=== PATIENT | male | born 1965 | race Caucasian/White ===

== ENCOUNTER 2017-06-30 09:27 | Day surgery (SDC) | payer OTHER ==
[2017-06-24 12:16] VITALS: BMI 47.0
[~2017-06-30 09:27] MED LIST: LACTATED RINGERS 1,000 ML IV SCH
[2017-06-30 09:48] VITALS: RESP 18; TEMP 98.3
[2017-06-30] MEDS ORDERED: LIDOCAINE 1% 20 ML VIAL (10MG/ML) FOR IV START INTRADERMA ONE (10:00)
[2017-06-30 10:03] LABS: Glucose,Whole Blood 148 mg/dL (75-99)
[2017-06-30] MEDS ORDERED: LIDOCAINE 1% INJ 10MG/ML (20 ML MDV) ONE (10:04)
[2017-06-30] MEDS ORDERED: PROPOFOL 10 MG/ML 20 ML VIAL IV ONE (10:04)
--- NOTE | 2017-06-30 10:28 | P.PCN ---
Date of Procedure: 06/30/17 Procedure(s) Performed: BRIEF HISTORY: Patient is a 52-year-old pleasant white male, scheduled for an elective colonoscopy as a part of screening for colorectal neoplasia. PROCEDURE PERFORMED: Colonoscopy. PREOPERATIVE DIAGNOSIS: Screening for colon cancer. IV sedation per Anesthesia. PROCEDURE: After informed consent was obtained, the patient, was brought into the endoscopy unit. IV sedation was administered by Anesthesia under continuous monitoring. Digital rectal examination was normal. Initially the Olympus CF- 160 flexible video colonoscope was then inserted in the rectum, gradually advanced into the cecum without any difficulty. Careful examination was performed as the scope was gradually being withdrawn. Ileocecal valve and the appendiceal orifice were visualized and appeared normal. Prep was excellent. Mucosa of the cecum, ascending colon, transverse colon, descending colon, sigmoid colon, and rectum appeared normal. Retroflexion was performed in the rectum and no lesions were seen. The patient tolerated the procedure well. IMPRESSION: Normal-appearing colon from rectum to cecum with no evidence of colorectal neoplasia. RECOMMENDATIONS: Findings of this examination were discussed with the patient as well as his family. He was advised to have a repeat screening colonoscopy in 10 years.
[2017-06-30] MEDS ORDERED: IV FLUID CONTINUATION 1,000 ML IV ONE (10:29)
[2017-06-30 10:45] VITALS: BP 124/68; PULSE 82
== END 2017-06-30 11:25 | disposition home or self-care (01) ==
LOC: ORWHC2ENDO 09:27
PROVIDERS: ATTEND Internal Medicine Gastroenterology
DX: Z12.11 Encounter for screening for malignant neoplasm of colon (principal); I10 Essential (primary) hypertension; E78.5 Hyperlipidemia, unspecified; J45.909 Unspecified asthma, uncomplicated; Z79.84 Long term (current) use of oral hypoglycemic drugs; Z79.82 Long term (current) use of aspirin; Z79.899 Other long term (current) drug therapy
CPT/HCPCS: J2001; J2704; G0121

== ENCOUNTER → 2020-08-05 | Outpatient (CLI) | payer OTHER ==
--- NOTE | 2020-08-05 20:55 | CT ---
EXAMINATION TYPE: CT lumbar spine wo con DATE OF EXAM: 08/05/2020 6:29 PM COMPARISON: None available. HISTORY: chronic low back pain CT DLP: 2507.9 mGycm Automated exposure control for dose reduction was used. Unenhanced CT of the lumbar spine was performed. Bone and soft tissue window settings are submitted as well as coronal and sagittal reconstructions. FINDINGS: There is no acute fracture or subluxation. There is lumbosacral transitional anatomy with partial fus ion L5-S1 on the left. The vertebral D heights are grossly maintained. There is multilevel mild to mo derate disc height narrowing and facet arthropathy. No significant paraspinal soft tissue abnormality . IMPRESSION: Mild to moderate lumbar spondylosis without acute abnormality. Lumbosacral transitional anatomy.
== END | disposition home or self-care (01) ==
LOC: RADCTMAIN 18:11
PROVIDERS: ATTEND Family Medicine
DX: M47.26 Other spondylosis with radiculopathy, lumbar region (principal)
CPT/HCPCS: 72131

== ENCOUNTER → 2021-04-30 | Outpatient (CLI) | payer OTHER ==
--- NOTE | 2021-05-01 07:09 | US ---
EXAMINATION TYPE: US extremity nonvasculr ltd LT DATE OF EXAM: 04/30/2021 COMPARISON: NONE CLINICAL HISTORY: Swelling left calf R22.42. Pt states left calf edema Soft tissue edema visualized throughout left medial and posterior calf IMPRESSION: Diffuse soft tissue edema or cellulitis. Correlate clinically.
== END | disposition home or self-care (01) ==
LOC: RADUSWWP 15:50
PROVIDERS: ATTEND Family Medicine
DX: R22.42 Localized swelling, mass and lump, left lower limb (principal)

== ENCOUNTER 2022-03-24 18:05 | Observation (INO) | payer BC ==
[2022-03-24 21:28] LABS: ALT 31 U/L (4-49); African American GFR (CKD) >90 (>60 ml/min/1.73 sqM); Albumin 4.1 g/dL (3.5-5.0); Anion Gap 14 mmol/L; Blood Urea Nitrogen 8 mg/dL (9-20); Calcium 9.3 mg/dL (8.4-10.2); Carbon Dioxide 22 mmol/L (22-30); Chloride 99 mmol/L (98-107); Glucose 111 mg/dL (74-99); Non-African American GFR(CKD) >90 (>60 ml/min/1.73 sqM); Sodium 135 mmol/L (137-145); Total Bilirubin 0.7 mg/dL (0.2-1.3); Total Protein 6.5 g/dL (6.3-8.2)
[2022-03-24 21:41] LABS: AST 33 U/L (17-59); Alkaline Phosphatase 40 U/L (38-126); Potassium 4.9 mmol/L (3.5-5.1)
[2022-03-24 23:48] LABS: Basophils % (A) 0 %; Eosinophils # (A) 0.2 k/uL (0-0.7); Eosinophils % (A) 3 %; HCT 37.2 % (39.0-53.0); Lymphocytes # (A) 2.1 k/uL (1.0-4.8); Lymphocytes % (A) 26 %; MCH 30.5 pg (25.0-35.0); MCHC 34.9 g/dL (31.0-37.0); MCV 87.3 fL (80.0-100.0); Mean Platelet Volume 6.8; Monocytes # (A) 0.5 k/uL (0-1.0); Monocytes % (A) 6 %; Neutrophils # (A) 5.2 k/uL (1.3-7.7); Neutrophils % (A) 64 %; Platelet Count 251 k/uL (150-450); RBC 4.26 m/uL (4.30-5.90); RDW 13.9 % (11.5-15.5); WBC 8.2 k/uL (3.8-10.6)
[2022-03-25] MEDS ORDERED: NALOXONE 0.4 MG/ML 1 ML VIAL IV PRN (00:11)
--- NOTE | 2022-03-25 00:11 | ED ---
GI Bleed HPI - General Chief complaint: GI Bleed Stated complaint: Rectal Bleed, Sent by Dr Villarreal Seen by Provider: 03/24/22 21:25 Source: patient Mode of arrival: ambulatory Limitations: no limitations - History of Present Illness Initial comments: 56-year-old male presents to emergency department with rectal bleeding. States that for the past 10 days he has had bright red blood per rectum. He will have 1 bowel movement per day and every bowel movement has had blood in it. He denies history of peptic ulcer disease. No NSAID or alcohol use. Did have a colonoscopy 8-10 years ago which was normal. He denies constipation. Does admit to diarrhea. No abdominal or rectal pain. He went into [facility] 2 days ago and had a CT performed. Was reported as negative. He was told to follow-up for further treatment. Dr. Rangel found in office today and was concerned with his persistent bleeding and recommended that he go into the hospital for surgery evaluation. No other alleviating, precipitating or modifying factors - Related Data Home Medications Medication Instructions Recorded Confirmed Albuterol Inhaler [Ventolin 1 puff INHALATION RT-Q4H PRN 02/04/15 03/24/22 Inhaler] Aspirin 81 mg PO DAILY 02/04/15 03/24/22 Amoxic-Pot Clav 875-125Mg 1 tab PO BID 03/24/22 03/24/22 [Augmentin 875-125] Atorvastatin [Lipitor] 40 mg PO HS 03/24/22 03/24/22 Dulaglutide [Trulicity] 3 mg SQ OLIVAREZ 03/24/22 03/24/22 Furosemide [Lasix] 20 mg PO BID 03/24/22 03/24/22 Insulin Glargine,Hum.rec.anlog 20 unit SQ DAILY 03/24/22 03/24/22 [Basaglar Kwikpen U-100] Magnesium Oxide 400 mg PO DAILY 03/24/22 03/24/22 Vitamin B Complex 1 cap PO DAILY 03/24/22 03/24/22 levETIRAcetam 500 mg PO BID 03/24/22 03/24/22 lisinopriL [Zestril] 10 mg PO DAILY 03/24/22 03/24/22 metFORMIN HCL 1,000 mg PO BID 03/24/22 03/24/22 Allergies Allergy/AdvReac Type Severity Reaction Status Date / Time tree nut Allergy Anaphylaxis Verified 03/24/22 22:21 Review of Systems ROS Statement: Those systems with pertinent positive or pertinent negative responses have been documented in the HPI. ROS Other: All systems not noted in ROS Statement are negative. Past Medical History Past Medical History: Asthma, Diabetes Mellitus, Hyperlipidemia, Seizure Disorder Additional Past Medical History / Comment(s): LAST SEIZUERE "YEARS AGO"-NO LONG ER SEIZURE MEDS History of Any Multi-Drug Resistant Organisms: None Reported Past Surgical History: Orthopedic Surgery Additional Past Surgical History / Comment(s): RIGHT WRIST SURGERY, LEFT ARM & SHOULDER PRITCHARD/SKIN GRAFTING, RT LEG PRITCHARD/SKIN GRAFT, LT KNEE SCOPE, Past Anesthesia/Blood Transfusion Reactions: No Reported Reaction Past Psychological History: No Psychological Hx Reported Smoking Status: Never smoker Past Alcohol Use History: Rare Past Drug Use History: Marijuana - Past Family History Mother Family Medical History: No Reported History Father Family Medical History: CVA/TIA, Myocardial Infarction ([place]) Additional Family Medical History / Comment(s): Father is 82 yrs old. General Exam Limitations: no limitations General appearance: alert, in no apparent distress Head exam: Present: atraumatic, normocephalic, normal inspection Eye exam: Present: normal appearance, PERRL, EOMI. Absent: scleral icterus, conjunctival injection, periorbital swelling ENT exam: Present: normal exam, mucous membranes moist Neck exam: Present: normal inspection. Absent: tenderness, meningismus, lymphadenopathy Respiratory exam: Present: normal lung sounds bilaterally. Absent: respiratory distress, wheezes, rales, rhonchi, stridor Cardiovascular Exam: Present: regular rate, normal rhythm, normal heart sounds. Absent: systolic murmur, diastolic murmur, rubs, gallop, clicks GI/Abdominal exam: Present: soft, normal bowel sounds. Absent: distended, tenderness, guarding, rebound, rigid Rectal exam: Present: heme (+) stool, other (scant brown stool). Absent: black stool, bloody stool Extremities exam: Present: normal inspection, full ROM, normal capillary refill. Absent: tenderness, pedal edema, joint swelling, calf tenderness Back exam: Present: normal inspection Neurological exam: Present: alert, oriented X3, CN II-XII intact Psychiatric exam: Present: normal affect, normal mood Skin exam: Present: warm, dry, intact, normal color. Absent: rash Course Vital Signs 03/24/22 03/24/22 03/24/22 18:27 22:03 23:28 Temperature 98 F Pulse Rate 95 84 87 Respiratory 20 16 15 Rate Blood Pressure 118/76 117/64 113/71 O2 Sat by Pulse 98 94 L 98 Oximetry 03/25/22 03/25/22 03/25/22 04:00 06:00 07:19 Temperature 98.1 F Pulse Rate 82 78 84 Respiratory 16 16 16 Rate Blood Pressure 135/45 107/65 130/78 O2 Sat by Pulse 98 100 98 Oximetry 03/25/22 03/25/22 03/25/22 09:11 10:14 14:39 Temperature 98 F Pulse Rate 88 93 88 Respiratory 16 16 16 Rate Blood Pressure 134/79 131/71 121/68 O2 Sat by Pulse 98 98 100 Oximetry 03/25/22 03/25/22 15:00 16:09 Temperature Pulse Rate 90 89 Respiratory 16 16 Rate Blood Pressure 145/89 125/77 O2 Sat by Pulse 100 100 Oximetry Medical Decision Making - Medical Decision Making Upon arrival patient was placed into room 8. There are history and physical exam was performed. Rectal exam is performed which demonstrates a scant amount of brown stool. Occult is positive. Hemoglobin 13. He will be admitted to [facility] with surgery to consult - Lab Data Result diagrams: 03/26/22 06:10 03/26/22 06:10 Lab Results 03/24/22 03/24/22 03/24/22 Range/Units 19:17 19:17 20:45 WBC 8.2 (3.8-10.6) k/uL RBC 4.26 L (4.30-5.90) m/uL Hgb 13.0 (13.0-17.5) gm/dL Hct 37.2 L (39.0-53.0) % MCV 87.3 (80.0-100.0) fL MCH 30.5 (25.0-35.0) pg MCHC 34.9 (31.0-37.0) g/dL RDW 13.9 (11.5-15.5) % Plt Count 251 (150-450) k/uL MPV 6.8 Neutrophils % 64 % Lymphocytes % 26 % Monocytes % 6 % Eosinophils % 3 % Basophils % 0 % Neutrophils # 5.2 (1.3-7.7) k/uL Lymphocytes # 2.1 (1.0-4.8) k/uL Monocytes # 0.5 (0-1.0) k/uL Eosinophils # 0.2 (0-0.7) k/uL Basophils # 0.0 (0-0.2) k/uL APTT 23.1 (22.0-30.0) sec Sodium (137-145) mmol/L Potassium (3.5-5.1) mmol/L Chloride (98-107) mmol/L Carbon Dioxide (22-30) mmol/L Anion Gap mmol/L BUN (9-20) mg/dL Creatinine (0.66-1.25) mg/dL Est GFR (CKD-EPI)AfAm (>60 ml/min/1.73 sqM) Est GFR (CKD-EPI)NonAf (>60 ml/min/1.73 sqM) Glucose (74-99) mg/dL Estimated Ave Glu mg/dL 160 Hemoglobin A1c 7.2 H (0.0-6.0) % Calcium (8.4-10.2) mg/dL Total Bilirubin (0.2-1.3) mg/dL AST (17-59) U/L ALT (4-49) U/L Alkaline Phosphatase (38-126) U/L Troponin I (0.000-0.034) ng/mL Total Protein (6.3-8.2) g/dL Albumin (3.5-5.0) g/dL Stool Occult Blood (Negative) 03/24/22 03/24/22 03/24/22 Range/Units 20:45 21:43 21:44 WBC (3.8-10.6) k/uL RBC (4.30-5.90) m/uL Hgb (13.0-17.5) gm/dL Hct (39.0-53.0) % MCV (80.0-100.0) fL MCH (25.0-35.0) pg MCHC (31.0-37.0) g/dL RDW (11.5-15.5) % Plt Count (150-450) k/uL MPV Neutrophils % % Lymphocytes % % Monocytes % % Eosinophils % % Basophils % % Neutrophils # (1.3-7.7) k/uL Lymphocytes # (1.0-4.8) k/uL Monocytes # (0-1.0) k/uL Eosinophils # (0-0.7) k/uL Basophils # (0-0.2) k/uL APTT (22.0-30.0) sec Sodium 135 L (137-145) mmol/L Potassium 4.9 (3.5-5.1) mmol/L Chloride 99 (98-107) mmol/L Carbon Dioxide 22 (22-30) mmol/L Anion Gap 14 mmol/L BUN 8 L (9-20) mg/dL Creatinine 0.60 L (0.66-1.25) mg/dL Est GFR (CKD-EPI)AfAm >90 (>60 ml/min/1.73 sqM) Est GFR (CKD-EPI)NonAf >90 (>60 ml/min/1.73 sqM) Glucose 111 H (74-99) mg/dL Estimated Ave Glu mg/dL Hemoglobin A1c (0.0-6.0) % Calcium 9.3 (8.4-10.2) mg/dL Total Bilirubin 0.7 (0.2-1.3) mg/dL AST 33 (17-59) U/L ALT 31 (4-49) U/L Alkaline Phosphatase 40 (38-126) U/L Troponin I <0.012 (0.000-0.034) ng/mL Total Protein 6.5 (6.3-8.2) g/dL Albumin 4.1 (3.5-5.0) g/dL Stool Occult Blood Positive (Negative) Disposition Clinical Impression: Hematochezia Disposition: ADMITTED IP TO THIS [facility] Condition: Stable Is patient prescribed a controlled substance at d/c from ED?: No Time of Disposition: 00:11 Decision to Admit Reason: Admit from EC Decision Date: 03/25/22 Decision Time: 00:11
[2022-03-25] MEDS: SODIUM CHLORIDE 0.9% 1,000 ML IV SCH ×2 (06:48→16:21)
[2022-03-25] MEDS: PANTOPRAZOLE 40 MG/10 ML VIAL IV SCH (09:09)
[2022-03-25] MEDS ORDERED: DEXTROSE 50% SYRINGE 50 ML IVP PRN ×2 (09:31)
--- NOTE | 2022-03-25 09:33 | P.HPIM ---
History of Present Illness This is a pleasant 56 years old male with past medical history of hypertension, hyperlipidemia, diabetes mellitus, seizure disorder. His PCP is Dr. Rangel. Pt has been having rectal bleeding for over 10 days. He went to see his PCP Dr. Rangel who referred him to the emergency room. Patient states that his rectal bleeding is with no pain, associated with bowel movement, states about 1-1.5 ounces that's fills up The toilet paper. He had no bowel movement over the last 2 days but passing gases. He has no abdominal pain but mild epigastric discomfort on palpation. He recognizes this in the emergency room. No chest pain or dyspnea. No coughing. No urinary complaints like dysuria. No headache or weakness or numbness or dizziness. He denies smoking, alcohol or illicit drugs. Patient states that he was recently been diagnosed with pneumonia and should be on Augmentin for 1 more week. He states he was taking baby aspirin by his PCP Dr. Arriaga. His been evaluated about 1-1.5 year ago, his been evaluated by Dr. Barnard on that time to Vitals are stable, blood pressure 107/65 and heart rate 78. Labs reviewed showing normal hemoglobin at 13.0. The rest of the CBC is unremarkable. PTT is 23.1 BMP and liver enzymes are unremarkable Troponin is negative. Occult blood in the stool is positive. And emergency room was started on Protonix and normal saline at 75 mL/h Review of Systems Review of systems CONSTITUTIONAL: No fever, no malaise, no fatigue. HEENT: No recent visual problems or hearing problems. Denied any sore throat. CARDIOVASCULAR: No orthopnea, PND, no palpitations, no syncope. PULMONARY: No shortness of breath, no cough, no hemoptysis. GASTROINTESTINAL: No diarrhea, no nausea, no vomiting, no abdominal pain. Normoactive bowel sounds. NEUROLOGICAL: No headaches, no weakness, no numbness. HEMATOLOGICAL: Denies any bleeding or petechiae. GENITOURINARY: Denies any burning micturition, frequency, or urgency. MUSCULOSKELETAL/RHEUMATOLOGICAL: Denies any joint pain, swelling, or any muscle pain. ENDOCRINE: Denies any polyuria or polydipsia. Past Medical History Past Medical History: Asthma, Diabetes Mellitus, Hyperlipidemia, Seizure Disorder Additional Past Medical History / Comment(s): LAST SEIZUERE "YEARS AGO"-NO LONGER SEIZURE MEDS History of Any Multi-Drug Resistant Organisms: None Reported Past Surgical History: Orthopedic Surgery Additional Past Surgical History / Comment(s): RIGHT WRIST SURGERY, LEFT ARM & SHOULDER PRITCHARD/SKIN GRAFTING, RT LEG PRITCHARD/SKIN GRAFT, LT KNEE SCOPE, Past Anesthesia/Blood Transfusion Reactions: No Reported Reaction Past Psychological History: No Psychological Hx Reported Smoking Status: Never smoker Past Alcohol Use History: Rare Past Drug Use History: Marijuana - Past Family History Mother Family Medical History: No Reported History Medications and Allergies Home Medications Medication Instructions Recorded Confirmed Type Albuterol Inhaler [Ventolin 1 puff INHALATION RT-Q4H PRN 02/04/15 03/24/22 History Inhaler] Aspirin 81 mg PO DAILY 02/04/15 03/24/22 History Amoxic-Pot Clav 875-125Mg 1 tab PO BID 03/24/22 03/24/22 History [Augmentin 875-125] Atorvastatin [Lipitor] 40 mg PO HS 03/24/22 03/24/22 History Dulaglutide [Trulicity] 3 mg SQ OLIVAREZ 03/24/22 03/24/22 History Furosemide [Lasix] 20 mg PO BID 03/24/22 03/24/22 History Insulin Glargine,Hum.rec.anlog 20 unit SQ DAILY 03/24/22 03/24/22 History [Basaglar Kwikpen U-100] Magnesium Oxide 400 mg PO DAILY 03/24/22 03/24/22 History Vitamin B Complex 1 cap PO DAILY 03/24/22 03/24/22 History levETIRAcetam 500 mg PO BID 03/24/22 03/24/22 History lisinopriL [Zestril] 10 mg PO DAILY 03/24/22 03/24/22 History metFORMIN HCL 1,000 mg PO BID 03/24/22 03/24/22 History Allergies Allergy/AdvReac Type Severity Reaction Status Date / Time tree nut Allergy Anaphylaxis Verified 03/24/22 22:21 Physical Exam Vitals: Vital Signs Temp Pulse Resp BP Pulse Ox 03/25/22 06:00 78 16 107/65 100 03/25/22 04:00 82 16 135/45 98 03/24/22 23:28 87 15 113/71 98 03/24/22 22:03 84 16 117/64 94 L 03/24/22 18:27 98 F 95 20 118/76 98 Intake and Output 03/24/22 03/25/22 03/25/22 22:59 06:59 14:59 Other: Weight 142.882 kg GENERAL: The patient is alert and oriented x3, not in any acute distress. Well developed, well nourished. HEENT: Pupils are round and equally reacting to light. EOMI. No scleral icterus. No conjunctival pallor. Normocephalic, atraumatic. No pharyngeal erythema. No thyromegaly. CARDIOVASCULAR: S1 and S2 present. No murmurs, rubs, or gallops. PULMONARY: Chest is clear to auscultation, no wheezing or crackles. ABDOMEN: Soft, nontender, nondistended, normoactive bowel sounds. No palpable organomegaly. MUSCULOSKELETAL: No joint swelling or deformity. EXTREMITIES: No cyanosis, clubbing, or pedal edema. NEUROLOGICAL: Gross neurological examination did not reveal any focal deficits. SKIN: No rashes. no petechiae. Results CBC & Chem 7: 03/24/22 19:17 03/24/22 20:45 Labs: Abnormal Lab Results - Last 24 Hours (Table) 03/24/22 03/24/22 Range/Units 19:17 20:45 RBC 4.26 L (4.30-5.90) m/uL Hct 37.2 L (39.0-53.0) % Sodium 135 L (137-145) mmol/L BUN 8 L (9-20) mg/dL Creatinine 0.60 L (0.66-1.25) mg/dL Glucose 111 H (74-99) mg/dL Assessment and Plan Assessment: Acute GI bleed rectal bleeding over 10 days Hypertension Hyperlipidemia Diabetes mellitus History of seizure disorder Obesity with BMI of 45.2 Plan: This is a pleasant 56 years old male who presents with acute GI bleed Continue with IV Protonix hold aspirin Continue with normal saline Monitor hemoglobin and vitals Surgery team consult Hold metformin and to Lantus 20 units and trulicity and continue with insulin sliding scale Labs and medication were reviewed.. Continue same treatment. Continue with symptomatic treatment. Resume home medication. Monitor lytes and vitals. DVT and GI prophylaxis. Further recommendations as per clinical course of the patie nt DVT prophylaxis: no Subcutaneous heparin GI Prophylaxis: Ppi Prognosis is guarded
[2022-03-25] MEDS: levETIRAcetam 500 MG TAB PO SCH ×2 (10:12→21:22)
[2022-03-25] MEDS: AMOXIC-POT CLAV 875-125MG 1 EACH TAB PO SCH ×2 (10:12→21:22)
[2022-03-25] MEDS ORDERED: IOPAMIDOL CONTRAST (ORAL USE) VIAL PO PRN (10:32)
--- NOTE | 2022-03-25 12:39 | CT ---
EXAMINATION TYPE: CT abdomen pelvis w con DATE OF EXAM: 03/25/2022 COMPARISON: NONE HISTORY: 56-year-old male GIB, diarrhea. TECHNIQUE: Contiguous axial scanning of the abdomen and pelvis following administration of 100 ml Iso nicolette 300 IV contrast. Delayed images through the kidneys and coronal/sagittal reconstructions perform ed. CT DLP: 3635.4 mGycm Automated exposure control for dose reduction was used. FINDINGS: Heart normal size without pericardial effusion. Prominent epicardial fat pad. Bands of opac ity at the left base with elevated left hemidiaphragm suggests some scarring and volume loss. No pleu ral effusion. No focal liver lesion or biliary ductal dilatation. Portal venous system is patent. Gallbladder shows a junctional fold. No abnormal distention. Adrenal glands, kidneys, pancreas within normal limits. Spleen is mildly enlarged at 14.5 cm measured on coronal series. Small anterior splenule. No dilated small bowel, free fluid, or free air. No mesenteric or retroperitoneal lymphadenopathy. Normal appendix. Oral contrast progressed to the rectum. There is mild to moderate stool within the d istal sigmoid and rectum. No pericolonic inflammatory change. Bladder urine distended. Prostate gland is borderline in size at 4.2 cm. No abnormal fluid collection in the pelvis or pelvic lymphadenopathy. Bones: There is a rightward truncal shift noted. There is also left L5 hemisacralization with a degen erative assimilation joint. No osseous destructive process. IMPRESSION: 1. MILD TO MODERATE STOOL WITHIN THE DISTAL SIGMOID AND RECTUM. NO ACUTE INFLAMMATORY PROCESS IDENTIF IED IN THE ABDOMEN OR PELVIS. 2. SUSPECT CHRONIC SCARRING AND VOLUME LOSS AT THE LEFT BASE. 3. MILD SPLENOMEGALY AT 14.5 CM. 4. INCIDENTAL LEFT L5 HEMISACRALIZATION WITH A DEGENERATIVE ASSIMILATION JOINT.
[2022-03-25 12:48] LABS: Glucose,Whole Blood 140 mg/dL (70-110)
[2022-03-25] MEDS: INSULIN ASPART (NovoLOG) 100 UNIT/ML VIAL SQ SCH ×3 (12:49→21:21)
--- NOTE | 2022-03-25 14:45 | P.GSCN ---
History of Present Illness Consult date: 03/25/22 History of present illness: CHIEF COMPLAINT: Bright red blood per rectum HISTORY OF PRESENT ILLNESS: This is a 56-year-old male who presented to hospital with complaints of bright red blood per rectum 11 days. He reports that he had been having one bloody bowel movement daily with diarrhea. At times she was passing clots. He reports having less blood present over the last few days. He was recently diagnosed with cold. 2 weeks ago. Also with the last week treated for pneumonia. Patient's last colonoscopy was [address] Garcia and that was normal. Patient denies any abdominal pain. Denies any nausea or vomiting. Denies any prior history of GI bleed. Denies any daily NSAID use. Hemoglobin on admission is 13. Stool for occult blood is positive. PAST MEDICAL HISTORY: See list. PAST SURGICAL HISTORY: See list. MEDICATIONS: See list. ALLERGIES: See list. SOCIAL HISTORY: No illicit drug use. REVIEW OF SYSTEMS: CONSTITUTIONAL: Denies fever or chills. HEENT: Denies blurred vision, vision changes, or eye pain. Denies hemoptysis ENDOCRINE: Denies heat or cold intolerance. CARDIOVASCULAR: Denies chest pain or pressure. RESPIRATORY: No shortness of breath. GASTROINTESTINAL: Denies abdominal pain. Denies nausea or vomiting. NEURO: Denies history of seizures. PSYCH: No depression or suicidal ideation HEMATOLOGIC: Denies bleeding disorders. LYMPHATIC: The patient denies any lumps and bumps around the neck. GENITOURINARY: Denies any blood in urine or increased urinary frequency. MUSCULOSKELETAL: Denies myalgias. Denies joint swelling. Denies decreased range of motion beyond patients baseline. SKIN: Denies pruitis. Denies rash. PHYSICAL EXAM: VITAL SIGNS: Reviewed GENERAL: Well-developed in no acute distress. HEENT: No sclera icterus. Extraocular movements grossly intact. Moist buccal mucosa. Head is atraumatic, normocephalic. Hears conversational speech. No nasal drainage. NECK: Supple without lymphadenopathy. CHEST: Non-labored respirations and equal bilateral excursions. CARDIOVASCULAR: Palpable 2+ radial pulses. ABDOMEN: Soft. Nondistended. Nontender MUSCULOSKELETAL: No clubbing or cyanosis. NEUROLOGIC: No focal or lateralizing signs. Cranial nerves II through XII grossly intact. PSYCH: Appropriate affect. Alert and oriented to person, place and time. SKIN: Well perfused. Good skin turgor. LABORATORY DATA: WBC is 8.2 Hgb is 13 platelets 251 Sodium is 135 potassium is 4.9 creatinine 0.60 LFTs are normal troponin negative Stool for occult blood positive IMAGING: ASSESSMENT: 1. Acute GI bleed with bright red blood per rectum 2. Recent COVID-19 pneumonia 2 weeks ago 3. Recent treatment of pneumonia 4. History of diabetes mellitus 5. Hyperlipidemia 6. Asthma PLAN: -Computed tomography scan abdomen and pelvis ordered for further evaluation of GI bleed. Rule out colitis or diverticulosis -Continue to monitor for any signs or symptoms of bleeding -Continue to monitor hemoglobin -Patient tentatively scheduled for EGD and colonoscopy tomorrow depending on computed tomography scan results [facility] note has been reviewed by physician. Signing provider agrees with the documented findings, assessment, and plan of care. REASON FOR CONSULTATION: Rectal bleeding HISTORY OF PRESENT ILLNESS: The patient is a 56 year old male who presents to the emergency room after developing recurrent bright red blood per rectum over 1-2 weeks ago. He reports recent history of coronavirus exposure and colitis 2 weeks ago. He has recent pneumonia treated with antibiotics. He reports colonoscopy 5 years ago. General surgery was consulted for moderate rectal bleeding. PAST MEDICAL HISTORY: See list and reviewed PAST SURGICAL HISTORY: See list and reviewed MEDICATIONS: See list and reviewed ALLERGIES: See list and reviewed SOCIAL HISTORY: See list and reviewed FAMILY HISTORY: See list and reviewed REVIEW OF ORGAN SYSTEMS: CONSTITUTIONAL: No fevers or chills. Has morbid obesity, BMI 42.5 EYES: Denies any trouble with vision. No glasses. HEENT: No difficulties with hearing. No nosebleeds. No difficulty swallowing. RESPIRATORY: Has chronic obstructive pulmonary disease. Has asthma. CARDIOVASCULAR: Has hyperlipidemia. Has hypertensive heart disease GASTROINTESTINAL: Denies fatty food intolerance. Has recent diarrhea and colitis including coronavirus 2 weeks ago. GENITOURINARY: Denies any blood in urine or increased urinary frequency. NEUROLOGICAL: Denies any numbness or tingling along the distal extremities. Has seizure disorder MUSCULOSKELETAL: Denies any back pain, stiffness or joint arthritis. SKIN: No current skin cancer. No rash. PSYCHIATRIC: Denies current depression or suicidal thoughts. ENDOCRINE: Denies current thyroid disorders. Has diabetes type 2. HEME/LYMPHATIC: Denies any lumps and bumps around the neck. No recent deep venous thrombosis. ALLERGY/IMMUNOLOGY: No immunoglobulin therapy. No immune deficiencies. BREAST: Denies current breast lumps, pain or nipple discharge. PHYSICAL EXAM: VITALS: Reviewed CONSTITUTIONAL: Well developed and in no acute distress. EYES: Conjuctivae without sclera icterus. Extraocular movements grossly intact. HEAD, EARS, NOSE, THROAT: Moist buccal mucosa. Head is atraumatic, normocephalic. Hears conversational speech. No nasal drainage. NECK: Supple. No JV distention. No thyroidomegaly. RESPIRATORY: Non-labored respirations and equal bilateral excursions. No gross wheezes. CARDIOVASCULAR: Palpable 2+ radial pulses. ABDOMEN: Protuberant. No peritonitis. LYMPH: No neck lymphadenopathy. MUSCULOSKELETAL: No clubbing cyanosis SKIN: Warm and well perfused with good skin turgor. NEUROLOGIC: Cranial nerves II through XII grossly intact. No focal or lateralizing signs. PSYCH: Appropriate affect. Alert and oriented to person, place and time. Displays appropriate insight. CLINCAL LABS: Reviewed. Hemoglobin on admission 13.0. WBC normal. ASSESSMENT: 1. Gastrointestinal bleeding PLAN: 1. IV fluid hydration. 2. Recommend upper and lower endoscopy for gastrointestinal 3. Clear liquid diet 4. Recommend CT of the abdomen and pelvis to evaluate for colitis prior to endoscopy Thank you for this kind consultation. Past Medical History Past Medical History: Asthma, Diabetes Mellitus, Hyperlipidemia, Seizure Disorder Additional Past Medical History / Comment(s): LAST SEIZUERE "YEARS AGO"-NO LONGER SEIZURE MEDS History of Any Multi-Drug Resistant Organisms: None Reported Past Surgical History: Orthopedic Surgery Additional Past Surgical History / Comment(s): RIGHT WRIST SURGERY, LEFT ARM & SHOULDER PRITCHARD/SKIN GRAFTING, RT LEG PRITCHARD/SKIN GRAFT, LT KNEE SCOPE, Past Anesthesia/Blood Transfusion Reactions: No Reported Reaction Past Psychological History: No Psychological Hx Reported Smoking Status: Never smoker Past Alcohol Use History: Rare Past Drug Use History: Marijuana - Past Family History Mother Family Medical History: No Reported History Father Family Medical History: CVA/TIA, Myocardial Infarction (DC) Additional Family Medical History / Comment(s): Father is 82 yrs old. Medications and Allergies Home Medications Medication Instructions Recorded Confirmed Type Albuterol Inhaler [Ventolin 1 puff INHALATION RT-Q4H PRN 02/04/15 03/24/22 History Inhaler] Aspirin 81 mg PO DAILY 02/04/15 03/24/22 History Amoxic-Pot Clav 875-125Mg 1 tab PO BID 03/24/22 03/24/22 History [Augmentin 875-125] Atorvastatin [Lipitor] 40 mg PO HS 03/24/22 03/24/22 History Dulaglutide [Trulicity] 3 mg SQ OLIVAREZ 03/24/22 03/24/22 History Furosemide [Lasix] 20 mg PO BID 03/24/22 03/24/22 History Insulin Glargine,Hum.rec.anlog 20 unit SQ DAILY 03/24/22 03/24/22 History [Basaglar Kwikpen U-100] Magnesium Oxide 400 mg PO DAILY 03/24/22 03/24/22 History Vitamin B Complex 1 cap PO DAILY 03/24/22 03/24/22 History levETIRAcetam 500 mg PO BID 03/24/22 03/24/22 History lisinopriL [Zestril] 10 mg PO DAILY 03/24/22 03/24/22 History metFORMIN HCL 1,000 mg PO BID 03/24/22 03/24/22 History Allergies Allergy/AdvReac Type Severity Reaction Status Date / Time tree nut Allergy Anaphylaxis Verified 03/24/22 22:21 Surgical - Exam Vital Signs Temp Pulse Resp BP Pulse Ox 98 F 95 20 118/76 98 03/24/22 18:27 03/24/22 18:27 03/24/22 18:27 03/24/22 18:27 03/24/22 18:27 Results - Labs 03/26/22 06:10 03/26/22 06:10 Abnormal Lab Results - Last 24 Hours (Table) 03/24/22 03/24/22 Range/Units 19:17 20:45 RBC 4.26 L (4.30-5.90) m/uL Hct 37.2 L (39.0-53.0) % Sodium 135 L (137-145) mmol/L BUN 8 L (9-20) mg/dL Creatinine 0.60 L (0.66-1.25) mg/dL Glucose 111 H (74-99) mg/dL Diabetes panel 03/24/22 Range/Units 20:45 Sodium 135 L (137-145) mmol/L Potassium 4.9 (3.5-5.1) mmol/L Chloride 99 (98-107) mmol/L Carbon Dioxide 22 (22-30) mmol/L BUN 8 L (9-20) mg/dL Creatinine 0.60 L (0.66-1.25) mg/dL Glucose 111 H (74-99) mg/dL Calcium 9.3 (8.4-10.2) mg/dL AST 33 (17-59) U/L ALT 31 (4-49) U/L Alkaline Phosphatase 40 (38-126) U/L Total Protein 6.5 (6.3-8.2) g/dL Albumin 4.1 (3.5-5.0) g/dL Calcium panel 03/24/22 Range/Units 20:45 Calcium 9.3 (8.4-10.2) mg/dL Albumin 4.1 (3.5-5.0) g/dL Pituitary panel 03/24/22 Range/Units 20:45 Sodium 135 L (137-145) mmol/L Potassium 4.9 (3.5-5.1) mmol/L Chloride 99 (98-107) mmol/L Carbon Dioxide 22 (22-30) mmol/L BUN 8 L (9-20) mg/dL Creatinine 0.60 L (0.66-1.25) mg/dL Glucose 111 H (74-99) mg/dL Calcium 9.3 (8.4-10.2) mg/dL Adrenal panel 03/24/22 Range/Units 20:45 Sodium 135 L (137-145) mmol/L Potassium 4.9 (3.5-5.1) mmol/L Chloride 99 (98-107) mmol/L Carbon Dioxide 22 (22-30) mmol/L BUN 8 L (9-20) mg/dL Creatinine 0.60 L (0.66-1.25) mg/dL Glucose 111 H (74-99) mg/dL Calcium 9.3 (8.4-10.2) mg/dL Total Bilirubin 0.7 (0.2-1.3) mg/dL AST 33 (17-59) U/L ALT 31 (4-49) U/L Alkaline Phosphatase 40 (38-126) U/L Total Protein 6.5 (6.3-8.2) g/dL Albumin 4.1 (3.5-5.0) g/dL
[2022-03-25] MEDS ORDERED: PEG 3350 (420 GM/BTL) + LYTES 4,000 ML BOTTLE PO ONE (14:58)
[2022-03-25] MEDS: FUROSEMIDE 20 MG TAB PO SCH (16:08)
[2022-03-25 17:08] LABS: Glucose,Whole Blood 124 mg/dL (70-110)
[2022-03-25 20:39] LABS: Glucose,Whole Blood 163 mg/dL (70-110)
[2022-03-25] MEDS: ATORVASTATIN 40 MG TAB PO SCH (21:22)
[2022-03-26] MEDS: SODIUM CHLORIDE 0.9% 1,000 ML IV SCH ×2 (01:35→17:13)
[2022-03-26 07:29] LABS: Glucose,Whole Blood 132 mg/dL (70-110)
[2022-03-26] MEDS: INSULIN ASPART (NovoLOG) 100 UNIT/ML VIAL SQ SCH ×4 (07:48→21:03)
[2022-03-26 08:54] LABS: Basophils # (A) 0.02 X 10*3/uL (0.00-0.10); Basophils % (A) 0.4 %; Eosinophils # (A) 0.18 X 10*3/uL (0.04-0.35); Eosinophils % (A) 3.2 %; HCT 33.9 % (39.6-50.0); HGB 11.7 g/dL (13.0-17.0); Immature Grans, Automated 0.4 %; Lymphocytes # (A) 1.53 X 10*3/uL (0.90-5.00); Lymphocytes % (A) 26.9 %; MCH 30.2 pg (27.0-32.0); MCHC 34.5 g/dL (32.0-37.0); MCV 87.4 fL (80.0-97.0); Mean Platelet Volume 9.3 fL (9.5-12.2); Monocytes # (A) 0.43 X 10*3/uL (0.20-1.00); Monocytes % (A) 7.6 %; NRBC Per 100 WBC 0 /100 WBCS (0.0-0.0); Neutrophils # (A) 3.51 X 10*3/uL (1.80-7.70); Neutrophils % (A) 61.5 %; Platelet Count 186 X 10*3/uL (140-440); RBC 3.88 X 10*6/uL (4.40-5.60); RDW 13.6 % (11.5-14.5); WBC 5.69 X 10*3/uL (4.50-10.00)
[2022-03-26 09:08] LABS: African American GFR (CKD) 131.9 (60.0-200.0); Anion Gap 9.8 mmol/L (10.00-18.00); BUN/Creat Ratio 7.35 Ratio (12.00-20.00); Blood Urea Nitrogen 4.4 mg/dL (9.0-27.0); Calcium 8.5 mg/dL (8.7-10.3); Carbon Dioxide 23.5 mmol/L (20.0-27.5); Magnesium 1.9 mg/dL (1.5-2.4); Non-African American GFR(CKD) 113.8 (60.0-200.0); Potassium 3.8 mmol/L (3.5-5.5)
[2022-03-26] MEDS: PANTOPRAZOLE 40 MG/10 ML VIAL IV SCH (10:00)
[2022-03-26] MEDS ORDERED: PROPOFOL 10 MG/ML 20 ML VIAL IV ONE (10:22)
[2022-03-26] MEDS ORDERED: IV FLUID CONTINUATION 1,000 ML IV ONE (11:01)
[2022-03-26 11:40] VITALS: RESP 16
[2022-03-26 11:45] LABS: Glucose,Whole Blood 138 mg/dL (70-110)
--- NOTE | 2022-03-26 11:46 | P.PCN ---
Date of Procedure: 03/26/22 Description of Procedure: PREOPERATIVE DIAGNOSIS: Positive occult stool Gastrointestinal bleeding with hematochezia POSTOPERATIVE DIAGNOSIS: Grade 4 internal hemorrhoids with recent ulceration and bleeding Few colonic diverticula Anal polyp OPERATION: Colonoscopy to the cecum, ileocecal valve and appendiceal orifice SURGEON: Ruchi Jimenez MD. ANESTHESIA: MAC. INDICATIONS: The patient is a 56-year-old male who presents with gastrointestinal bleeding and positive occult stool. Benefits and risks were described and informed consent was obtained. DESCRIPTION OF PROCEDURE: The patient had undergone attempted Golytely prep 4 L. The patient had been brought into the operating room and laid in the left lateral decubitus position. After adequate intravenous sedation, the rectum was examined with 2% lidocaine jelly. Large reducible grade 3 internal hemorrhoids with ulceration, recent inflammation and without active bleeding was found. The rectal tone was loose. An Olympus colonoscope was gently advanced to the cecum with clear visualization of the ileocecal valve including appendiceal orifice. The prep was good. Few scattered diverticulosis was encountered without active bleeding. No active colonic bleeding was found. No intraluminal masses were identified within the colon. No evidence of focal colitis was found. Retroflexion of the scope demonstrated grade 3 internal hemorrhoids with recent inflammation. The colon was desufflated. The patient had tolerated the procedure well. Withdrawal time was over 6 minutes. FINDINGS: Aronchick preparation quality scale 2 (1-5) Internal hemorrhoids, grade 3 with 3-mm ulceration and recent inflammation, no active bleeding. No thrombosed hemorrhoid identified. No arteriovenous malformations. Hyperplastic 3 mm anal polyp No focal colitis. RECOMMENDATIONS: 1. Diet as tolerated 2. Patient has ulcerated internal hemorrhoids. Hydrocortisone cream for treatment 3. Recommend avoidance of constipation which will aggravate hemorrhoids 4. Repeat colonoscopy 2 years, 2023 Plan - Discharge Summary Discharge Rx Participant: No New Discharge Prescriptions: No Action Aspirin 81 mg PO DAILY Albuterol Inhaler [Ventolin Inhaler] 1 puff INHALATION RT-Q4H PRN PRN Reason: Shortness Of Breath Insulin Glargine,Hum.rec.anlog [Basaglar Kwikpen U-100] 20 unit SQ DAILY Atorvastatin [Lipitor] 40 mg PO HS Dulaglutide [Trulicity] 3 mg SQ OLIVAREZ metFORMIN HCL 1,000 mg PO BID lisinopriL [Zestril] 10 mg PO DAILY Magnesium Oxide 400 mg PO DAILY levETIRAcetam 500 mg PO BID Furosemide [Lasix] 20 mg PO BID Vitamin B Complex 1 cap PO DAILY Amoxic-Pot Clav 875-125Mg [Augmentin 875-125] 1 tab PO BID Discharge Medication List Albuterol Inhaler [Ventolin Inhaler] 1 puff INHALATION RT-Q4H PRN 02/04/15 [History] Aspirin 81 mg PO DAILY 02/04/15 [History] Amoxic-Pot Clav 875-125Mg [Augmentin 875-125] 1 tab PO BID 03/24/22 [History] Atorvastatin [Lipitor] 40 mg PO HS 03/24/22 [History] Dulaglutide [Trulicity] 3 mg SQ OLIVAREZ 03/24/22 [History] Furosemide [Lasix] 20 mg PO BID 03/24/22 [History] Insulin Glargine,Hum.rec.anlog [Basaglar Kwikpen U-100] 20 unit SQ DAILY 03/24/22 [History] Magnesium Oxide 400 mg PO DAILY 03/24/22 [History] Vitamin B Complex 1 cap PO DAILY 03/24/22 [History] levETIRAcetam 500 mg PO BID 03/24/22 [History] lisinopriL [Zestril] 10 mg PO DAILY 03/24/22 [History] metFORMIN HCL 1,000 mg PO BID 03/24/22 [History] Follow up Appointment(s)/Referral(s): Parish Rangel MD [Primary Care Provider] - 1-2 days
--- NOTE | 2022-03-26 11:51 | P.PCN ---
Date of Procedure: 03/26/22 Description of Procedure: PREOPERATIVE DIAGNOSIS: Acute gastrointestinal bleeding Positive stool occult blood POSTOPERATIVE DIAGNOSIS: Acute on chronic gastric ulcer without bleeding Chronic gastritis without active bleeding Duodenitis without active bleeding Diaphragmatic hiatal hernia OPERATION: Esophagogastroduodenoscopy with cold forceps biopsies stomach, duodenum SURGEON: Ruchi Jimenez MD ANESTHESIA: MAC. INDICATIONS: The patient is a 56-year-old male who presents with gastrointestinal bleeding. Benefits and risks of the procedure were described. Informed consent was obtained. DESCRIPTION: The patient was brought into the endoscopy suite and laid in the left lateral decubitus position. An Olympus gastroscope was passed along the posterior oropharynx down to the distal esophagus where the squamocolumnar junction was encountered at 43 cm from the incisors. The stomach was entered and no bile reflux was found. Additional findings are listed below. The first through third portion of the duodenum was examined. Retroflexion of the scope confirmed Hill grade 4 lower esophageal valve. The squamocolumnar junction demonstrated LA grade A erosive esophagitis. The stomach was desufflated. The patient tolerated the procedure well. FINDINGS: Squamocolumnar junction 43 cm from the incisors. Diaphragmatic hiatus at 46 cm. Hiatal hernia, 3 cm, sliding type Hill grade 4 lower esophageal valve. LA grade A erosive esophagitis. Active duodenitis with biopsies obtained Acute on chronic gastric ulcer 3 mm, antrum distal to angularis incisura without active bleeding Chronic gastritis RECOMMENDATIONS: 1. Diet as tolerated 2. Upper endoscopy as needed 3. Start Protonix 40 mg daily 4. Start Carafate 1 g 3 times daily
[2022-03-26] MEDS: MAGNESIUM OXIDE 400 MG TAB PO SCH (11:52)
[2022-03-26] MEDS: levETIRAcetam 500 MG TAB PO SCH ×2 (11:52→21:03)
[2022-03-26] MEDS: SUCRALFATE 1 GM TAB PO SCH ×2 (11:52→17:12)
[2022-03-26] MEDS: lisinopriL 10 MG TAB PO SCH (11:52)
[2022-03-26] MEDS: AMOXIC-POT CLAV 875-125MG 1 EACH TAB PO SCH ×2 (11:53→21:03)
[2022-03-26] MEDS: FUROSEMIDE 20 MG TAB PO SCH ×2 (11:53→17:12)
[2022-03-26 15:37] VITALS: BMI 45.1
--- NOTE | 2022-03-26 16:31 | P.PN ---
Subjective Progress Note Date: 03/26/22 CHIEF COMPLAINT: Gastrointestinal bleed HISTORY OF PRESENT ILLNESS: The patient is a 56-year-old male who presented with gastrointestinal bleeding. He reports no further bleeding. During his bowel prep, he has no bleeding as well. Findings of gastric ulcers and ulcerated hemorrhoid reviewed. ROS: No reports of nausea and vomiting. No bowel movements. No fevers or chills. No new chest pain. No productive sputum PHYSICAL EXAM: VITAL SIGNS: Reviewed CONSTITUTIONAL: Well developed and in no acute distress. EYES: Conjuctivae without sclera icterus. Extraocular movements grossly intact. HEAD, EARS, NOSE, THROAT: Moist buccal mucosa. Head is atraumatic, normocephalic. Hears conversational speech. No nasal drainage. RESPIRATORY: Non-labored respirations and equal bilateral excursions. CARDIOVASCULAR: Palpable 2+ radial pulses. ABDOMEN: MUSCULOSKELETAL: No gross deformity of the lower extremities noted. No clubbing. No cyanosis. SKIN: Good skin turgor. Well perfused. NEUROLOGIC: Cranial nerves II through XII grossly intact. No focal or lateralizing signs. PSYCH: Appropriate affect. Alert and oriented to person, place and time. CLINICAL LABS: Reviewed. Hemoglobin down 13.0-11.7 ASSESSMENT: 1. Gastrointestinal bleeding. 2. Complicated internal/external hemorrhoids with bleeding 3. Chronic gastric ulcer PLAN: 1. Recommend Protonix and Carafate gastric ulcers for 2 weeks. 2. Recommend low fiber diet for recent hemorrhoids. 3. No acute surgical prevention for hemorrhoids at this time. 4. Stable for discharge from surgical standpoint pending no further bleeding overnight and stable hemoglobin Objective - Vital Signs Vital signs: Vital Signs Temp 97.5 F L 03/26/22 11:39 Pulse 90 03/26/22 11:39 Resp 16 03/26/22 11:39 BP 132/79 03/26/22 11:39 Pulse Ox 98 03/26/22 11:39 FiO2 Intake & Output 03/25/22 03/26/22 03/26/22 18:59 06:59 18:59 Intake Total 300 Balance 300 Weight 142.882 kg 142.882 kg Intake: IV 300 Other: Voiding Method Toilet Toilet # Voids 2 - Labs CBC & Chem 7: 03/26/22 06:10 03/26/22 06:10 Labs: Abnormal Lab Results - Last 24 Hours (Table) 03/25/22 03/25/22 03/26/22 Range/Units 17:06 20:37 06:10 RBC 3.88 L (4.40-5.60) X 10*6/uL Hgb 11.7 L (13.0-17.0) g/dL Hct 33.9 L (39.6-50.0) % MPV 9.3 L (9.5-12.2) fL Anion Gap (10.00-18.00) mmol/L BUN (9.0-27.0) mg/dL BUN/Creatinine Ratio (12.00-20.00) Ratio Glucose (70-110) mg/dL POC Glucose (mg/dL) 124 H 163 H (70-110) mg/dL Calcium (8.7-10.3) mg/dL 03/26/22 03/26/22 03/26/22 Range/Units 06:10 07:27 11:44 RBC (4.40-5.60) X 10*6/uL Hgb (13.0-17.0) g/dL Hct (39.6-50.0) % MPV (9.5-12.2) fL Anion Gap 9.80 L (10.00-18.00) mmol/L BUN 4.4 L (9.0-27.0) mg/dL BUN/Creatinine Ratio 7.35 L (12.00-20.00) Ratio Glucose 115 H (70-110) mg/dL POC Glucose (mg/dL) 132 H 138 H (70-110) mg/dL Calcium 8.5 L (8.7-10.3) mg/dL
[2022-03-26 17:11] LABS: Glucose,Whole Blood 201 mg/dL (70-110)
--- NOTE | 2022-03-26 19:39 | P.PN ---
Subjective This is a pleasant 56 years old male with past medical history of hypertension, hyperlipidemia, diabetes mellitus, seizure disorder. His PCP is Dr. Rangel. Pt has been having rectal bleeding for over 10 days. He went to see his PCP Dr. Rangel who referred him to the emergency room. Patient states that his rectal bleeding is with no pain, associated with bowel movement, states about 1-1.5 ounces that's fills up The toilet paper. He had no bowel movement over the last 2 days but passing gases. He has no abdominal pain but mild epigastric discomfort on palpation. He recognizes this in the emergency room. No chest pain or dyspnea. No coughing. No urinary complaints like dysuria. No headache or weakness or numbness or dizziness. He denies smoking, alcohol or illicit drugs. Patient states that he was recently been diagnosed with pneumonia and should be on Augmentin for 1 more week. He states he was taking baby aspirin by his PCP Dr. Arriaga. His been evaluated about 1-1.5 year ago, his been evaluated by Dr. Barnard on that time to Vitals are stable, blood pressure 107/65 and heart rate 78. Labs reviewed showing normal hemoglobin at 13.0. The rest of the CBC is unremarkable. PTT is 23.1 BMP and liver enzymes are unremarkable Troponin is negative. Occult blood in the stool is positive. And emergency room was started on Protonix and normal saline at 75 mL/h 03/26/2022 She was seen postoperatively, he almost finished his lunch, he looks comfortable and asymptomatic. No more bleeding per rectum EKG showing acute on chronic gastric ulcer with no leading and gastritis and duodenitis, surgery team recommended Protonix and Carafate 2 weeks. Colonoscopy showing internal hemorrhoids with recent ulceration and bleeding. Monitor overnight Possible discharge in 24-48 hours if he keeps improving and stable Objective - Vital Signs Vital signs: Vital Signs Temp 97.5 F L 03/26/22 11:39 Pulse 90 03/26/22 11:39 Resp 16 03/26/22 11:39 BP 132/79 03/26/22 11:39 Pulse Ox 98 03/26/22 11:39 FiO2 Intake & Output 03/25/22 03/26/22 03/26/22 18:59 06:59 18:59 Intake Total 300 Balance 300 Weight 142.882 kg Intake: IV 300 Other: Voiding Method Toilet Toilet # Voids 2 - Exam -GENERAL: The patient is alert and oriented x3, not in any acute obese HEENT: Pupils are round and equally reacting to light. EOMI. No scleral icterus. No conjunctival pallor. Normocephalic, atraumatic. No pharyngeal erythema. No thyromegaly. CARDIOVASCULAR: S1 and S2 present. No murmurs, rubs, or gallops. PULMONARY: Chest is clear to auscultation, no wheezing or crackles. ABDOMEN: Soft, nontender, nondistended, normoactive bowel sounds. No palpable organomegaly. MUSCULOSKELETAL: No joint swelling or deformity. EXTREMITIES: No cyanosis, clubbing, or pedal edema. NEUROLOGICAL: Gross neurological examination did not reveal any focal deficits. SKIN: No rashes. no petechiae. - Labs CBC & Chem 7: 03/26/22 06:10 03/26/22 06:10 Labs: Abnormal Lab Results - Last 24 Hours (Table) 03/24/22 03/25/22 03/25/22 Range/Units 19:17 12:47 17:06 RBC (4.40-5.60) X 10*6/uL Hgb (13.0-17.0) g/dL Hct (39.6-50.0) % MPV (9.5-12.2) fL Anion Gap (10.00-18.00) mmol/L BUN (9.0-27.0) mg/dL BUN/Creatinine Ratio (12.00-20.00) Ratio Glucose (70-110) mg/dL POC Glucose (mg/dL) 140 H 124 H (70-110) mg/dL Hemoglobin A1c 7.2 H (0.0-6.0) % Calcium (8.7-10.3) mg/dL 03/25/22 03/26/22 03/26/22 Range/Units 20:37 06:10 06:10 RBC 3.88 L (4.40-5.60) X 10*6/uL Hgb 11.7 L (13.0-17.0) g/dL Hct 33.9 L (39.6-50.0) % MPV 9.3 L (9.5-12.2) fL Anion Gap 9.80 L (10.00-18.00) mmol/L BUN 4.4 L (9.0-27.0) mg/dL BUN/Creatinine Ratio 7.35 L (12.00-20.00) Ratio Glucose 115 H (70-110) mg/dL POC Glucose (mg/dL) 163 H (70-110) mg/dL Hemoglobin A1c (0.0-6.0) % Calcium 8.5 L (8.7-10.3) mg/dL 03/26/22 03/26/22 Range/Units 07:27 11:44 RBC (4.40-5.60) X 10*6/uL Hgb (13.0-17.0) g/dL Hct (39.6-50.0) % MPV (9.5-12.2) fL Anion Gap (10.00-18.00) mmol/L BUN (9.0-27.0) mg/dL BUN/Creatinine Ratio (12.00-20.00) Ratio Glucose (70-110) mg/dL POC Glucose (mg/dL) 132 H 138 H (70-110) mg/dL Hemoglobin A1c (0.0-6.0) % Calcium (8.7-10.3) mg/dL Assessment and Plan Assessment: Acute GI bleed rectal bleeding over 10 days, secondary to internal hemorrhoids Acute on chronic gastric ulcer with no bleeding. Gastritis and duodenitis Hypertension Hyperlipidemia Diabetes mellitus History of seizure disorder Obesity with BMI of 45.2 Plan: This is a pleasant 56 years old male who presents with acute GI bleed Continue with IV Protonix , add Carafate hold aspirin DC IV fluid Monitor overnight for bleeding Surgery team consult on this case Hold metformin and to Lantus 20 units and trulicity and continue with insulin sliding scale Labs and medication were reviewed.. Continue same treatment. Continue with symptomatic treatment. Resume home medication. Monitor lytes and vitals. DVT and GI prophylaxis. Further recommendations as per clinical course of the patient DVT prophylaxis: no Subcutaneous heparin GI Prophylaxis: Ppi
[2022-03-26 21:00] LABS: Glucose,Whole Blood 163 mg/dL (70-110)
[2022-03-26] MEDS: ATORVASTATIN 40 MG TAB PO SCH (21:03)
[2022-03-27 07:27] LABS: Glucose,Whole Blood 123 mg/dL (70-110)
[2022-03-27] MEDS: levETIRAcetam 500 MG TAB PO SCH (08:28)
[2022-03-27] MEDS: SUCRALFATE 1 GM TAB PO SCH ×2 (08:28→13:07)
[2022-03-27] MEDS: AMOXIC-POT CLAV 875-125MG 1 EACH TAB PO SCH (08:28)
[2022-03-27] MEDS: MAGNESIUM OXIDE 400 MG TAB PO SCH (08:28)
[2022-03-27] MEDS: lisinopriL 10 MG TAB PO SCH (08:28)
[2022-03-27] MEDS: FUROSEMIDE 20 MG TAB PO SCH (08:28)
[2022-03-27] MEDS: PANTOPRAZOLE 40 MG/10 ML VIAL IV SCH (08:29)
[2022-03-27] MEDS: INSULIN ASPART (NovoLOG) 100 UNIT/ML VIAL SQ SCH ×2 (08:30→13:07)
[2022-03-27] MEDS: SODIUM CHLORIDE 0.9% 1,000 ML IV SCH (09:33)
[2022-03-27 11:42] LABS: Glucose,Whole Blood 246 mg/dL (70-110)
[2022-03-27 12:06] VITALS: BP 114/69; PULSE 83; TEMP 97.9
--- NOTE | 2022-03-27 12:30 | XR ---
EXAMINATION TYPE: XR chest 1V portable DATE OF EXAM: 03/27/2022 Comparison: None Clinical History: 56-year-old male shortness of breath Findings: Heart normal size. Large bilateral habitus casting hazy densities along the periphery of the lungs. P ulmonary vasculature within normal limits. No consolidation or pleural effusion. Impression: No acute cardiopulmonary process.
[2022-03-27 13:43] LABS: Basophils # (A) 0.03 X 10*3/uL (0.00-0.10); Basophils % (A) 0.5 %; Eosinophils % (A) 3.3 %; HCT 34.7 % (39.6-50.0); HGB 11.5 g/dL (13.0-17.0); Immature Grans, Automated 0.7 %; Lymphocytes % (A) 28.2 %; MCH 30.3 pg (27.0-32.0); MCHC 33.1 g/dL (32.0-37.0); MCV 91.3 fL (80.0-97.0); Mean Platelet Volume 9.7 fL (9.5-12.2); Monocytes # (A) 0.45 X 10*3/uL (0.20-1.00); Monocytes % (A) 7.5 %; NRBC Per 100 WBC 0 /100 WBCS (0.0-0.0); Neutrophils % (A) 59.8 %; Platelet Count 203 X 10*3/uL (140-440); RDW 14.1 % (11.5-14.5); WBC 6.02 X 10*3/uL (4.50-10.00)
--- NOTE | 2022-03-27 19:51 | P.PN ---
Subjective Progress Note Date: 03/27/22 CHIEF COMPLAINT: Gastrointestinal bleed HISTORY OF PRESENT ILLNESS: The patient is a 56-year-old male who presented with gastrointestinal bleeding. Upper endoscopy demonstrated gastric ulcers without bleeding. Colonoscopy demonstrated ulcerated hemorrhoid. He's had no further bleeding. Hemoglobin is stable. He is tolerating diet. ROS: No reports of nausea and vomiting. No fevers or chills. No new chest pain. No productive sputum PHYSICAL EXAM: VITAL SIGNS: Reviewed CONSTITUTIONAL: Well developed and in no acute distress. EYES: Conjuctivae without sclera icterus. Extraocular movements grossly intact. HEAD, EARS, NOSE, THROAT: Moist buccal mucosa. Head is atraumatic, normocephalic. Hears conversational speech. No nasal drainage. RESPIRATORY: Non-labored respirations and equal bilateral excursions. CARDIOVASCULAR: Palpable 2+ radial pulses. ABDOMEN: Nontender. MUSCULOSKELETAL: No gross deformity of the lower extremities noted. No clubbing. No cyanosis. SKIN: Good skin turgor. Well perfused. NEUROLOGIC: Cranial nerves II through XII grossly intact. No focal or lateral izing signs. PSYCH: Appropriate affect. Alert and oriented to person, place and time. CLINICAL LABS: Reviewed. Hemoglobin down to 11.7-11.5. ASSESSMENT: 1. Gastrointestinal bleeding. 2. Complicated internal/external hemorrhoids with bleeding 3. Chronic gastric ulcer PLAN: 1. Stable for discharge from a surgical standpoint. 2. Carafate and Protonix for gastric ulcers Objective - Vital Signs Vital signs: Vital Signs Temp 97.9 F 03/27/22 11:13 Pulse 83 03/27/22 11:13 Resp 16 03/27/22 11:13 BP 114/69 03/27/22 11:13 Pulse Ox 98 03/27/22 11:13 FiO2 Intake & Output 03/27/22 03/27/22 03/28/22 06:59 18:59 06:59 Intake Total 900 Balance 900 Intake: Intake, IV Titration 900 Amount Sodium Chloride 0.9% 1, 900 000 ml @ 75 mls/hr IV . [id number] [facility] Rx#:[id number] Other: Voiding Method Toilet # Voids 4 - Labs CBC & Chem 7: 03/27/22 07:06 03/26/22 06:10 Labs: Abnormal Lab Results - Last 24 Hours (Table) 03/26/22 03/27/22 03/27/22 Range/Units 20:58 07:06 07:24 RBC 3.80 L (4.40-5.60) X 10*6/uL Hgb 11.5 L (13.0-17.0) g/dL Hct 34.7 L (39.6-50.0) % POC Glucose (mg/dL) 163 H 123 H (70-110) mg/dL 03/27/22 Range/Units 11:26 RBC (4.40-5.60) X 10*6/uL Hgb (13.0-17.0) g/dL Hct (39.6-50.0) % POC Glucose (mg/dL) 246 H (70-110) mg/dL
--- NOTE | 2022-03-27 23:23 | P.DS ---
Providers Date of admission: 03/25/22 00:11 Attending physician: Bry Galeano Consults: 03/25/22 00:11 Consult Physician Urgent Consulting Provider: Ruchi Jimenez Consult Reason/Comments: gi bleed Do you want consulting provider notified?: Yes Primary care physician: Parish Rangel Hospital Course: Diagnoses: Acute GI bleed rectal bleeding over 10 days, secondary to internal hemorrhoids. Resolved Acute on chronic gastric ulcer with no bleeding. Gastritis and duodenitis Hypertension Hyperlipidemia Diabetes mellitus History of seizure disorder Obesity with BMI of 45.2 Hospital course: This is a pleasant 56 years old male with past medical history of hypertension, hyperlipidemia, diabetes mellitus, seizure disorder. His PCP is Dr. Rangel. Pt has been having rectal bleeding for over 10 days. He went to see his PCP Dr. Rangel who referred him to the emergency room. Patient seen by surgery team he underwent enteroscopy EGD showing acute on chronic gastric ulcer with no leading and gastritis and duodenitis, surgery team recommended Protonix and Carafate 2 weeks. Colonoscopy showing internal hemorrhoids with recent ulceration and bleeding. On the day of discharge patient's rectal bleeding.. Hemoglobin stable. Patient has symptomatic. He denies chest pain or dyspnea. He denies abdominal pain or vomiting or diarrhea. No further bleeding. No urinary complaints. No fever. Patient was eager to go home today. Patient was cleared for discharge by surgery team on Protonix and Carafate. Patient wants a prescription to [facility] per staff. Okay to resume aspirin per surgery team, there bedside nurse. Problems and management plan were discussed with the patient and he verbalized understanding and acceptance Patient was found stable and can be discharged home in guarded prognosis however he needs follow-up as an outpatient. Patient was instructed to follow up with PCP Dr. Rangel within one week and patient agrees Patient was instructed to follow up with Dr. Gold in one week and he agrees to call and make his own appointment as today is weakened Physical exam Gen: patient is a AAOx3, no distress CVS: S1-S2, RRR, no murmur Lungs: B/L CTA, no wheezing Abdomen: soft, no distention, no tenderness, positive bowel sounds Extremity: no leg edema or induration Time spent more than 35 minutes Patient Condition at Discharge: Stable Plan - Discharge Summary Discharge Rx Participant: No New Discharge Prescriptions: New Pantoprazole Sodium [Protonix] 40 mg PO DAILY #30 tab RX: Sucralfate [Carafate] 1 gm PO AC-TID 30 Days #90 tab Continue RX: Aspirin 81 mg PO DAILY RX: Albuterol Inhaler [Ventolin Hfa Inhaler] 1 puff INHALATION RT-Q4H PRN PRN Reason: Shortness Of Breath RX: Insulin Glargine,Hum.rec.anlog [Basaglar Kwikpen U-100] 20 unit SQ DAILY RX: Atorvastatin [Lipitor] 40 mg PO HS RX: Dulaglutide [Trulicity] 3 mg SQ OLIVAREZ RX: metFORMIN HCL 1,000 mg PO BID RX: lisinopriL [Zestril] 10 mg PO DAILY RX: Magnesium Oxide 400 mg PO DAILY RX: levETIRAcetam 500 mg PO BID RX: Furosemide [Lasix] 20 mg PO BID RX: Amoxic-Pot Clav 875-125Mg [Augmentin 875-125] 1 tab PO BID No Action RX: Vitamin B Complex 1 cap PO DAILY Discharge Medication List RX: Albuterol Inhaler [Ventolin Hfa Inhaler] 1 puff INHALATION RT-Q4H PRN 02/04/15 [History] RX: Aspirin 81 mg PO DAILY 02/04/15 [History] RX: Amoxic-Pot Clav 875-125Mg [Augmentin 875-125] 1 tab PO BID 03/24/22 [History] RX: Atorvastatin [Lipitor] 40 mg PO HS 03/24/22 [History] RX: Dulaglutide [Trulicity] 3 mg SQ OLIVAREZ 03/24/22 [History] RX: Furosemide [Lasix] 20 mg PO BID 03/24/22 [History] RX: Insulin Glargine,Hum.rec.anlog [Basaglar Kwikpen U-100] 20 unit SQ DAILY 03/24/22 [History] RX: Magnesium Oxide 400 mg PO DAILY 03/24/22 [History] RX: Vitamin B Complex 1 cap PO DAILY 03/24/22 [History] RX: levETIRAcetam 500 mg PO BID 03/24/22 [History] RX: lisinopriL [Zestril] 10 mg PO DAILY 03/24/22 [History] RX: metFORMIN HCL 1,000 mg PO BID 03/24/22 [History] Pantoprazole Sodium [Protonix] 40 mg PO DAILY #30 tab 03/27/22 [Rx] RX: Sucralfate [Carafate] 1 gm PO AC-TID 30 Days #90 tab 03/27/22 [Rx] Follow up Appointment(s)/Referral(s): Parish Rangel MD [Primary Care Provider] - 1-2 days Ruchi Jimenez MD [STAFF PHYSICIAN] - 1 Week Patient Instructions/Handouts: Sucralfate (By mouth), Pantoprazole (By mouth), Gastritis (DC), Diet for Stomach Ulcers and Gastritis (ED), Heart Healthy Diet (DC) Activity/Diet/Wound Care/Special Instructions: we recommend to check your glucose 4 times a day before each meal and at bed time , keep the results in a log book and bring it to your doctor upon your appointment date if your glucose is less than 70 or more than 400 then call 911 and come to emergency room heart healthy diet activity is restricted till you see your doctor avoid NSAIDS, like no motrin, no ibuprofen, no naproxen, no mobic Okay for baby aspirin if indicated Discharge Disposition: HOME SELF-CARE
== END 2022-03-27 16:50 | disposition home or self-care (01) ==
LOC: EC 18:05 → 6NMEDSUR 03-25 00:11 → 5NMEDONC 03-25 16:13
PROVIDERS: ADMIT Internal Medicine; ATTEND Internal Medicine
DX: K64.3 Fourth degree hemorrhoids (principal); K57.30 Diverticulosis of large intestine without perforation or abscess without bleeding; K62.0 Anal polyp; K29.50 Unspecified chronic gastritis without bleeding; K25.7 Chronic gastric ulcer without hemorrhage or perforation; K44.9 Diaphragmatic hernia without obstruction or gangrene; K29.80 Duodenitis without bleeding; E11.9 Type 2 diabetes mellitus without complications; E78.5 Hyperlipidemia, unspecified; G40.909 Epilepsy, unspecified, not intractable, without status epilepticus; F12.90 Cannabis use, unspecified, uncomplicated; J44.9 Chronic obstructive pulmonary disease, unspecified; E66.01 Morbid (severe) obesity due to excess calories; I11.9 Hypertensive heart disease without heart failure; R16.1 Splenomegaly, not elsewhere classified; R06.02 Shortness of breath; Z79.899 Other long term (current) drug therapy; Z79.82 Long term (current) use of aspirin; Z79.84 Long term (current) use of oral hypoglycemic drugs; Z82.3 Family history of stroke; Z82.49 Family history of ischemic heart disease and other diseases of the circulatory system; Z68.42 Body mass index [BMI] 45.0-49.9, adult; Z86.16 Personal history of COVID-19
CPT/HCPCS: 96376 ×2; 96361; 96374; 99285; 36415; 88305; 80053; 80048; 83735; 84484; 85025 ×3; 85730; 82272; 87324; 83036; 71045; 74177; 45378; 43239; G0378 ×4; J2704; C9113 ×3; Q9967 ×2

== ENCOUNTER → 2022-05-17 | Outpatient (CLI) | payer BC ==
--- NOTE | 2022-05-17 11:00 | CA ---
Lexiscan Nuclear Stress Test Report Name: Joe Harrell Exam Date: 05/17/2022 09:56 Exam Location: [place] Stress Ht (in): 70 Wt (lb): 320 BSA: 2.55 Ordering Phys: Parish Rangel MD Referring Phys: Parish Rangel MD Technologist: [email or web address] de leon Age: 57 Gender: M : 1965 Procedure CPT: Indications: R07.89 other chest pain ICD-10 Codes: Patient History: Chest Pain Medications: Meds past 24 hrs: Pretest Chest Pain: STRESS TEST Lexiscan Protocol Exercise Duration (min:sec): 02:[address] Depressions (mm): Angina Score: Barrera Score: Resting HR (bpm): 73 Peak HR (bpm): 111 Resting BP (mmHg): 122 / 74 Peak BP (mmHg): 120 / 57 MPHR: 164 Target HR: 139 % MPHR: 68 METS: 1.0 Total Dose: Peak Dose: Atropine: Double Product: 23879 BP Response: Stress Termination: Infusion complete Stress Symptoms: Dizziness Stress Summary: ECG ANALYSIS Resting ECG: Sinus rhythm. Normal conduction. No arrhythmias. Normal repolarization. Stress ECG: No ECG changes from baseline with Lexiscan infusion. CONCLUSIONS No ECG evidence of ischemia with Lexiscan infusion. Nuclear test results to follow. Dr. David Zamora MD (Electronically Signed) Final Date: 17 May 2022 10:59
--- NOTE | 2022-05-17 12:35 | NM ---
"EXAMINATION TYPE: NM stress lexiscan cardiolite DATE OF EXAM: 05/17/2022 COMPARISON: NONE HISTORY: Chest pain. TECHNIQUE: After the intravenous administration of 10.7 mCi Tc 99m Sestamibi - Cardiolite resting SP ECT images acquired 75 minutes post injection. The patient received 0.4mg Lexiscan, 25 mCi Tc 99m Sestamibi - Stress images obtained 40 minutes post injection FINDINGS: Review of stress and rest SPECT images demonstrates poor radiotracer uptake in the lateral left ventr icular wall on stress images versus rest images seen best on short axis and horizontal long axis view s from mid to apical segment suspicious for reversible ischemia. Gated analysis shows overall estima kathleen left ventricular ejection fraction of 60 %. IMPRESSION: Possible reversible ischemia in the left circumflex distribution lateral left ventricular wall. Clinical correlation and follow-up advised A Yellow level critical message alert has been initiated for Parish Rangel MD via the [employer] 36 0 | Critical Results System on 05/17/2022 9:32 AM. This message alert has been sent to Parish Rangel MD via the preferences provided by the clinician for the receipt of Radiology Critical Findings. [facility] ID [id number]."
== END | disposition home or self-care (01) ==
LOC: RADNMMAIN 07:34
PROVIDERS: ATTEND Family Medicine
DX: R07.89 Other chest pain (principal)
CPT/HCPCS: 93017; 78452; A9500

== ENCOUNTER 2022-05-19 09:44 | Day surgery (SDC) | payer BC ==
[~2022-05-19 09:44] MED LIST changes: +ALPRAZolam 0.25 MG TAB PO PRN; +ALPRAZolam 0.5 MG TAB PO PRN; +ASPIRIN 325 MG TAB PO STA; +ATORVASTATIN 80 MG TAB PO STA; +HEPARIN SODIUM,PORCINE 10,000 UNIT in SODIUM CHLORIDE 0.9% 1,000 ML IRRIGATION PRN; +HEPARIN SODIUM,PORCINE 2,500 UNIT in SODIUM CHLORIDE 0.9% 250 ML IRRIGATION PRN; -LACTATED RINGERS 1,000 ML IV SCH; +NITROGLYCERIN SL TABS 0.4 MG TAB SUBLINGUAL PRN
[2022-05-19 10:24] LABS: Glucose,Whole Blood 179 mg/dL (70-110)
[2022-05-19] MEDS ORDERED: ASPIRIN 81 MG ONE (10:47)
[2022-05-19] MEDS: SODIUM CHLORIDE 0.9% 1,000 ML in EMPTY BAG 1 BAG IV SCH ×3 (11:01→21:53)
[2022-05-19 11:06] LABS: Basophils # (A) 0.1 k/uL (0-0.2); Basophils % (A) 1 %; Eosinophils # (A) 0.3 k/uL (0-0.7); Eosinophils % (A) 4 %; HCT 39.1 % (39.0-53.0); HGB 13.5 gm/dL (13.0-17.5); Lymphocytes # (A) 1.4 k/uL (1.0-4.8); Lymphocytes % (A) 22 %; MCHC 34.5 g/dL (31.0-37.0); Mean Platelet Volume 7.1; Monocytes # (A) 0.4 k/uL (0-1.0); Monocytes % (A) 6 %; Neutrophils # (A) 4.4 k/uL (1.3-7.7); Neutrophils % (A) 66 %; Platelet Count 259 k/uL (150-450); RBC 4.49 m/uL (4.30-5.90); RDW 13.2 % (11.5-15.5); WBC 6.6 k/uL (3.8-10.6)
[2022-05-19 11:16] LABS: African American GFR (CKD) >90 (>60 ml/min/1.73 sqM); Anion Gap 11 mmol/L; Blood Urea Nitrogen 13 mg/dL (9-20); Calcium 9.2 mg/dL (8.4-10.2); Carbon Dioxide 26 mmol/L (22-30); Chloride 100 mmol/L (98-107); Glucose 170 mg/dL (74-99); Non-African American GFR(CKD) >90 (>60 ml/min/1.73 sqM); Potassium 4.8 mmol/L (3.5-5.1); Sodium 137 mmol/L (137-145)
[2022-05-19] MEDS ORDERED: VERAPAMIL 2.5 MG/ML 2 ML AMP ONE (13:03)
[2022-05-19] MEDS ORDERED: LIDOCAINE 1% INJ 10MG/ML (30 ML VIAL-PF) SQ ONE (13:07)
[2022-05-19] MEDS ORDERED: MIDAZOLAM 2 MG/2 ML VIAL IV ONE (13:08)
[2022-05-19] MEDS: VERAPAMIL SYRINGE (5 MG/10 ML) INTRAARTER ONE ×2 (13:09→13:22)
[2022-05-19] MEDS: HEPARIN SODIUM 1,000 UN/ML (10ML VL) IV ONE ×3 (13:15→13:50)
[2022-05-19] MEDS ORDERED: fentaNYL (PF) 50 MCG/ML 2 ML AMP ONE (13:20)
[2022-05-19] MEDS ORDERED: HYDROmorphone 0.5 MG/0.5 ML SYRINGE IVP ONE (13:22)
[2022-05-19] MEDS ORDERED: fentaNYL (PF) 50 MCG/ML 2 ML AMP IV ONE (13:22)
[2022-05-19] MEDS ORDERED: CLOPIDOGREL 75 MG TAB ONE (13:27)
[2022-05-19] MEDS ORDERED: CLOPIDOGREL 75 MG TAB PO ONE (13:30)
[2022-05-19] MEDS ORDERED: NITROGLYCERIN 1000MCG/10ML SYRINGE INTRACORON ONE (13:30)
[2022-05-19] MEDS ORDERED: IOPAMIDOL-370 125ML BTL INJ ONE (13:39)
[2022-05-19] MEDS ORDERED: ALBUTEROL NEBULIZED 2.5 MG/3 ML INHALATION PRN (13:44)
[2022-05-19] MEDS ORDERED: ATROPINE SULFATE 0.1 MG/ML 10ML SYRINGE IV PRN (13:45)
[2022-05-19] MEDS ORDERED: RX INFO: IV CONTRAST WAS GIVEN 1 EACH MISC MISCELLANE PRN (13:45)
[2022-05-19] MEDS ORDERED: MAG HYDROX/AL HYDROX/SIMETH 30 ML CUP PO PRN (13:45)
[2022-05-19] MEDS ORDERED: SODIUM CHLORIDE 0.9% 1,000 ML in EMPTY BAG 1 BAG IV SCH (13:45)
[2022-05-19] MEDS ORDERED: ZOLPIDEM 5 MG TAB PO PRN (13:45)
[2022-05-19] MEDS ORDERED: NITROGLYCERIN SL TABS 0.4 MG TAB SUBLINGUAL PRN (13:45)
--- NOTE | 2022-05-19 13:55 | P.PCN ---
Date of Procedure: 05/19/22 Operative Findings: CARDIAC CATHETERIZATION AND PERCUTANEOUS CORONARY INTERVENTION PERFORMING PHYSICIAN: Abe Mccain MD, VI PROCEDURE PERFORMED: 1. Selective right and left coronary angiogram 2. Left heart catheterization 3. FFR of the LCx 4. Successful stenting of left circumflex using 3.5 x 18 and 3.0 x 15 mm Xience RICARDO which with an excellent angiographic results INDICATION: This is a 57-year-old gentleman was diabetes and hypertension and dyslipidemia who was experiencing symptoms of chest discomfort. He underwent recently a stress test and that showed lateral ischemia. In the light of that he was referred for further cardiac evaluation and heart catheterization COMPLICATION: None APPROACH: Right radial art LEVEL OF SEDATION: Moderate with the sedation time off 35 minutes PROCEDURE DESCRIPTION: After obtaining an informed consent the patient was brought to the cardiac label pinker. The right radial artery was cannulated using micropuncture technique, the micropuncture wire passed easily then I placed a 6-Cambodian sheath. After that I give the patient 2 mg of verapamil intra-arterial and a total of 10,000 use of heparin IV. Continuous ACT monitoring was performed. Subsequently admitted selective right and left coronary angiogram using JR4 and JL 3.5 catheters. Left heart catheterization was performed using the JR4 catheter which cross the aortic valve then I did pulled back across the valve. After that I did an FFR of the RCA and then PCI of the RCA. SELECTIVE CORONARY ANGIOGRAM: The right coronary artery: Large caliber vessel and a dominant vessel. The RCA is angiographically normal. Distally bifurcates into PDA and PLV branches both appeared to be angiographically normal. Left main: Large caliber vessel. Its angiographically normal and bifurcates into LCx and LAD The left circumflex: Large caliber vessel nondominant vessel B the proximal circumflex is angiographically normal and gives rises into a large OM branch which has 2 tubular lesion appears to be in the range of 60%. FFR was performed and came in to be ischemic. As a matter of fact iFR was ischemic at 0.76. The left circumflex continues after that as a small-caliber vessel in the AV groove The left anterior descending artery: Large caliber vessel. The proximal LAD appeared to be angiographically normal. The mid LAD has a tubular lesion also appears to be in the range of 60%. The LAD distally appears to be angiographically normal. HEMODYNAMICS: The LVEDP was about 8 mmHg was no significant gradient across aortic valve PCI OF THE LCx: After anticoagulation was initiated. We did initially an FFR of the LCx. After zeroing the Doppler wire and equal lysing between the Doppler wire and the guiding catheter which was JL 3.5 guiding catheter iFR was performed and came in to be ischemic 0.76. Subsequently admitted direct stenting on the lesion in OM1 using 3.5 by 18 mm stent where the stent was positioned under fluoroscopy guidance and deployed under 12 darrian. The following angiogram showed what it seems to be possible edge dissection. I did deploy other stent which was 3.0 x 15 mm stent where the second stent was overlapped with the first the stent. Subsequently the area of overlap was dilated using 3.0 mm balloon. Then the proximal stent was postdilated using 3.75 mm balloon. Final angiogram was performed and showed an excellent angiographic results and the procedure was completed without any complication CONCLUSION: Intermediate lesion involving the OM1. iFR was performed and came in to be ischemic. Subsequently I performed successful stenting of OM1 Intermediate lesion involving the mid LAD Normal left-sided filling pressure POSTPROCEDURE MANAGEMENT: #1 dual antiplatelet therapy using aspirin and Plavix for at least 6 month and preferably 12 #2 consider FFR of the LAD is the patient remains symptomatic #3 follow-up with the patient
[2022-05-19 16:38] LABS: Glucose,Whole Blood 189 mg/dL (70-110)
[2022-05-19] MEDS: levETIRAcetam 500 MG TAB PO SCH (20:09)
[2022-05-19] MEDS: FUROSEMIDE 20 MG TAB PO SCH (20:09)
[2022-05-19 20:16] VITALS: TEMP 97.8
[2022-05-19 20:51] LABS: Glucose,Whole Blood 173 mg/dL (70-110)
[2022-05-19] MEDS ORDERED: ATORVASTATIN 40 MG TAB PO SCH (21:00)
[2022-05-19] MEDS ORDERED: ASPIRIN 81 MG PO SCH (21:00)
[2022-05-20] MEDS: SODIUM CHLORIDE 0.9% 1,000 ML in EMPTY BAG 1 BAG IV SCH (05:56)
[2022-05-20 06:00] VITALS: RESP 18
[2022-05-20 06:24] LABS: Glucose,Whole Blood 176 mg/dL (70-110)
[2022-05-20 08:49] LABS: Basophils # (A) 0.1 k/uL (0-0.2); Basophils % (A) 1 %; Eosinophils # (A) 0.3 k/uL (0-0.7); Eosinophils % (A) 4 %; HCT 35.8 % (39.0-53.0); HGB 12.2 gm/dL (13.0-17.5); Lymphocytes # (A) 1.3 k/uL (1.0-4.8); Lymphocytes % (A) 19 %; MCH 29.7 pg (25.0-35.0); MCHC 34.1 g/dL (31.0-37.0); MCV 86.9 fL (80.0-100.0); Mean Platelet Volume 7.4; Monocytes # (A) 0.3 k/uL (0-1.0); Monocytes % (A) 5 %; Neutrophils % (A) 70 %; Platelet Count 205 k/uL (150-450); RBC 4.12 m/uL (4.30-5.90); RDW 13.6 % (11.5-15.5); WBC 7.1 k/uL (3.8-10.6)
--- NOTE | 2022-05-20 08:52 | P.DS ---
Providers Attending physician: Abe Mccain Consults: 05/19/22 13:45 Consult Physician Routine Consulting Provider: [facility] Consult Reason/Comments: Post Interventional patient Do you want consulting provider notified?: Already Contacted Primary care physician: Parish Rangel [facility] Course: This is a 57-year-old gentleman with diabetes and hypertension and dyslipidemia was seen in the office recently for further evaluation of chest discomfort with exertion. A stress test was performed as an outpatient by the primary care physician and that showed lateral ischemia. In the light of that a heart catheterization was advised. The patient underwent a heart catheterization which showed intermediate lesion involving the LAD as well as LCx. He underwent an FFR of the LCx lesion and that came in to be ischemic. In the light of that he underwent stenting of that. He was seen this morning. He is asymptomatic from the cardiovascular standpoint of view. He is hemodynamically stable as well. The right radial site soft and nontender with a good pulse. The patient is going to be discharged home on dual antiplatelet therapy as well as statin. I discussed with him the importance of sticking to his medications including dual antiplatelet therapy. I will stop the metformin for 48 hours and the patient subsequently can be restarted on metformin after that. Plan - Discharge Summary New Discharge Prescriptions: New Clopidogrel [Plavix] 75 mg PO DAILY #90 tablet Continue Aspirin 81 mg PO HS Albuterol Inhaler [Ventolin Hfa Inhaler] 1 puff INHALATION RT-Q4H PRN PRN Reason: Shortness Of Breath Insulin Glargine,Hum.rec.anlog [Leonardoagldaisy Maysikpen U-100] 20 unit SQ DAILY Atorvastatin [Lipitor] 40 mg PO HS Dulaglutide [Trulicity] 3 mg SQ OLIVAREZ lisinopriL [Zestril] 10 mg PO DAILY Magnesium Oxide 400 mg PO DAILY levETIRAcetam 500 mg PO BID Furosemide [Lasix] 20 mg PO BID Vitamin B Complex 1 cap PO DAILY Discontinued metFORMIN HCL 1,000 mg PO DAILY Discharge Medication List Albuterol Inhaler [Ventolin Hfa Inhaler] 1 puff INHALATION RT-Q4H PRN 02/04/15 [History] Aspirin 81 mg PO HS 02/04/15 [History] Atorvastatin [Lipitor] 40 mg PO HS 03/24/22 [History] Dulaglutide [Trulicity] 3 mg SQ OLIVAREZ 03/24/22 [History] Furosemide [Lasix] 20 mg PO BID 03/24/22 [History] Insulin Glargine,Hum.rec.anlog [Basaglar Kwikpen U-100] 20 unit SQ DAILY 03/24/22 [History] Magnesium Oxide 400 mg PO DAILY 03/24/22 [History] Vitamin B Complex 1 cap PO DAILY 03/24/22 [History] levETIRAcetam 500 mg PO BID 03/24/22 [History] lisinopriL [Zestril] 10 mg PO DAILY 03/24/22 [History] Clopidogrel [Plavix] 75 mg PO DAILY #90 tablet 05/20/22 [Rx] Follow up Appointment(s)/Referral(s): Abe Mccain MD [STAFF PHYSICIAN] - 1 Week
[2022-05-20 08:56] LABS: African American GFR (CKD) >90 (>60 ml/min/1.73 sqM); Anion Gap 11 mmol/L; Blood Urea Nitrogen 12 mg/dL (9-20); Calcium 8.6 mg/dL (8.4-10.2); Carbon Dioxide 23 mmol/L (22-30); Chloride 102 mmol/L (98-107); Glucose 219 mg/dL (74-99); Non-African American GFR(CKD) >90 (>60 ml/min/1.73 sqM); Potassium 4.8 mmol/L (3.5-5.1); Sodium 136 mmol/L (137-145)
[2022-05-20] MEDS ORDERED: NON FORMULARY DRUG (Vitamin B Complex [Vitamin B Complex] 1 EACH Capsule) PO SCH (09:00)
[2022-05-20] MEDS ORDERED: INSULIN DETEMIR (LEVEMIR) 100 UNIT/ML SYR SQ SCH (09:00)
[2022-05-20] MEDS ORDERED: CLOPIDOGREL 75 MG TAB PO SCH (09:00)
[2022-05-20] MEDS ORDERED: MAGNESIUM OXIDE 400 MG TAB PO SCH (09:00)
[2022-05-20] MEDS ORDERED: lisinopriL 10 MG TAB PO SCH (09:00)
[2022-05-20] MEDS: levETIRAcetam 500 MG TAB PO SCH (09:17)
[2022-05-20] MEDS: FUROSEMIDE 20 MG TAB PO SCH (09:17)
[2022-05-20 10:45] VITALS: BP 109/73; PULSE 82
[2022-05-22] MEDS ORDERED: metFORMIN 500 MG TAB PO SCH (07:30)
[2022-05-23] MEDS ORDERED: NON FORMULARY DRUG (Dulaglutide [Trulicity] 3 MG/0.5 ML Each) SQ SCH (13:44)
== END 2022-05-20 11:07 | disposition home or self-care (01) ==
LOC: CATHCVL 09:44 → 3SCARD 13:40 → CATHCVL 05-20 11:07
PROVIDERS: ATTEND Internal Medicine Interventional Cardiology
DX: R07.89 Other chest pain (principal); E11.9 Type 2 diabetes mellitus without complications; I10 Essential (primary) hypertension
CPT/HCPCS: 93571; 93458; 80048 ×2; 85025 ×2; C1769 ×3; C9600; C1887; C1894; C1725; C1874 ×2; J2250; J2001; J3010; J1644; J1170; Q9967

== ENCOUNTER → 2022-06-10 | Outpatient (CLI) | payer BC ==
--- NOTE | 2022-06-10 15:54 | US ---
EXAMINATION TYPE: US venous doppler duplex UE RT DATE OF EXAM: 06/10/2022 COMPARISON: NONE CLINICAL HISTORY: 57-year-old male M79.601 PAIN IN RIGHT ARM. Right arm pain following heart stent pl acement 05/17/2022 TECHNIQUE: Grayscale, color doppler, spectral doppler imaging performed of the deep veins of the righ t upper extremity. SIDE PERFORMED: Right arm FINDINGS: There is normal flow, compressibility and vascular waveforms. Right Arm: Negative for DVT IMPRESSION: No evidence for DVT within the right upper extremity.
== END | disposition home or self-care (01) ==
LOC: RADUSWWP 12:07
PROVIDERS: ATTEND Family Medicine
DX: M79.601 Pain in right arm (principal)

== ENCOUNTER 2022-07-01 07:13 | Day surgery (SDC) | payer BC ==
[2022-07-01] MEDS ORDERED: SODIUM CHLORIDE 0.9% 1,000 ML IV ONE (07:38)
[2022-07-01 07:52] LABS: Glucose,Whole Blood 195 mg/dL (70-110)
[2022-07-01 08:03] LABS: Basophils # (A) 0.1 k/uL (0-0.2); Basophils % (A) 1 %; Eosinophils # (A) 0.3 k/uL (0-0.7); Eosinophils % (A) 3 %; HCT 40.7 % (39.0-53.0); HGB 14.7 gm/dL (13.0-17.5); Lymphocytes # (A) 1.4 k/uL (1.0-4.8); Lymphocytes % (A) 18 %; MCH 30.7 pg (25.0-35.0); MCV 85.2 fL (80.0-100.0); Mean Platelet Volume 7.3; Monocytes # (A) 0.3 k/uL (0-1.0); Monocytes % (A) 4 %; Neutrophils # (A) 5.8 k/uL (1.3-7.7); Neutrophils % (A) 71 %; Platelet Count 228 k/uL (150-450); RBC 4.78 m/uL (4.30-5.90); RDW 13.9 % (11.5-15.5); WBC 8.1 k/uL (3.8-10.6)
[2022-07-01 08:20] LABS: African American GFR (CKD) >90 (>60 ml/min/1.73 sqM); Anion Gap 10 mmol/L; Blood Urea Nitrogen 15 mg/dL (9-20); Calcium 9.1 mg/dL (8.4-10.2); Carbon Dioxide 28 mmol/L (22-30); Chloride 98 mmol/L (98-107); Glucose 206 mg/dL (74-99); Non-African American GFR(CKD) >90 (>60 ml/min/1.73 sqM); Potassium 4.5 mmol/L (3.5-5.1); Sodium 136 mmol/L (137-145)
[2022-07-01] MEDS ORDERED: VERAPAMIL 2.5 MG/ML 2 ML AMP ONE (09:55)
[2022-07-01] MEDS ORDERED: fentaNYL (PF) 50 MCG/ML 2 ML AMP ONE (10:24)
[2022-07-01] MEDS ORDERED: fentaNYL (PF) 50 MCG/ML 2 ML AMP IV ONE (10:26)
[2022-07-01] MEDS: MIDAZOLAM 2 MG/2 ML VIAL IV ONE ×2 (10:26→10:46)
[2022-07-01] MEDS ORDERED: LIDOCAINE 1% INJ 10MG/ML (30 ML VIAL-PF) SQ ONE (10:27)
[2022-07-01] MEDS: HEPARIN SODIUM 1,000 UN/ML (10ML VL) IV ONE ×2 (10:38→10:54)
[2022-07-01] MEDS ORDERED: NITROGLYCERIN 1000MCG/10ML SYRINGE INTRACORON ONE (10:43)
[2022-07-01] MEDS ORDERED: CLOPIDOGREL 75 MG TAB ONE (10:54)
[2022-07-01] MEDS ORDERED: CLOPIDOGREL 75 MG TAB PO ONE (10:56)
[2022-07-01] MEDS ORDERED: IOPAMIDOL-370 125ML BTL INJ ONE (10:59)
[2022-07-01] MEDS ORDERED: ALBUTEROL NEBULIZED 2.5 MG/3 ML INHALATION PRN (11:04)
[2022-07-01] MEDS ORDERED: ATROPINE SULFATE 0.1 MG/ML 10ML SYRINGE IV PRN (11:05)
[2022-07-01] MEDS ORDERED: NITROGLYCERIN SL TABS 0.4 MG TAB SUBLINGUAL PRN (11:05)
[2022-07-01] MEDS ORDERED: ZOLPIDEM 5 MG TAB PO PRN (11:05)
[2022-07-01] MEDS ORDERED: RX INFO: IV CONTRAST WAS GIVEN 1 EACH MISC MISCELLANE PRN (11:05)
[2022-07-01] MEDS ORDERED: MAG HYDROX/AL HYDROX/SIMETH 30 ML CUP PO PRN (11:05)
--- NOTE | 2022-07-01 11:10 | P.PCN ---
Date of Procedure: 07/01/22 Operative Findings: PERCUTANEOUS CORONARY INTERVENTION Performing physician Abe Mccain M.D. Procedure Performed: 1. Successful stenting of the mid left anterior descending artery using 3.0 x 18 mm Xience drug-eluting stent with an excellent angiographic results. 2. Fractional flow reserve of the left anterior descending artery 3. Selective right common femoral artery angiogram Indication: This is a 57-year-old gentleman with prior stenting of the LCx and known to have an intermediate lesion involving the LAD continues to have symptoms of chest discomfort and shortness of breath concerning for angina and for that reason he was brought today to undergo an FFR of the LAD and PCI of the LAD if the FFR is ischemic Approach: Right common femoral artery. That approach was performed because he is known to have occluded right radial artery Complications: None Level of Sedation: Moderate with a sedation length of 30 minutes Procedure Discussion: After obtaining an informed consent the patient was brought to the cardiac manufacturing laborer. The right common femoral artery was cannulated using micropuncture technique under ultrasound guidance, the micropuncture wire passed easily then I placed a 6-Turkmen 11 cm sheath in the right common femoral artery. At that point and after zeroing the Doppler wire and equalizing between the Doppler wire and the guiding catheter which was JL4 guiding catheter with an FFR. As a matter of fact we did an iFR and that came in to be ischemic at 0.80. I did successful direct stenting of the lesion in the mid LAD using 3.0 x 18 mm stent where the stent was positioned under fluoroscopy guidance and deployed under its nominal pressure. I postdilated the stent using 3.5 mm noncompliant balloon which was inflated under 18 darrian for 20 seconds. The following angiogram showed an excellent angiographic results and the procedure was completed without any complication Postprocedure Management: 1. Dual antiplatelet therapy with aspirin and Plavix for at least 6 month and preferably a year 2. Aggressive cholesterol control 3. Risk factors modification
[2022-07-01] MEDS: SODIUM CHLORIDE 0.9% 1,000 ML in EMPTY BAG 1 BAG IV SCH ×2 (11:13→13:11)
[2022-07-01] MEDS ORDERED: SODIUM CHLORIDE 0.9% 1,000 ML in EMPTY BAG 1 BAG IV SCH (11:15)
[2022-07-01] MEDS ORDERED: ACETAMINOPHEN TAB 325 MG TAB ONE (11:36)
[2022-07-01 13:20] LABS: Glucose,Whole Blood 164 mg/dL (70-110)
[2022-07-01 14:57] VITALS: BMI 46.3
[2022-07-01 16:24] LABS: Glucose,Whole Blood 210 mg/dL (70-110)
[2022-07-01] MEDS: FUROSEMIDE 20 MG TAB PO SCH (17:07)
[2022-07-01 20:33] LABS: Glucose,Whole Blood 180 mg/dL (70-110)
[2022-07-01] MEDS ORDERED: ASPIRIN 81 MG PO SCH (21:00)
[2022-07-01] MEDS ORDERED: ATORVASTATIN 40 MG TAB PO SCH (21:00)
[2022-07-01] MEDS: levETIRAcetam 500 MG TAB PO SCH (21:16)
[2022-07-02 06:10] LABS: Glucose,Whole Blood 182 mg/dL (70-110)
[2022-07-02] MEDS ORDERED: INSULIN DETEMIR (LEVEMIR) 100 UNIT/ML SYR SQ SCH (07:00)
--- NOTE | 2022-07-02 07:44 | P.DS ---
Providers Attending physician: Abe Mccain Consults: 07/01/22 11:05 Consult Physician Routine Consulting Provider: [facility] Consult Reason/Comments: Post Interventional Patient Do you want consulting provider notified?: Already Contacted Primary care physician: Parish Rangel [facility] Course: The patient is a pleasant 57-year-old gentleman who underwent yesterday and FFR and stenting of the left anterior descending artery with a good angiographic results and with no complication He was seen this morning. He is asymptomatic. He is in no dynamic stable. The right groin soft and nontender and with no bruises. The patient's going to discharge home on dual antiplatelet therapy and high intensity statin with holding metformin for 48 hours. I will follow-up with the patient a few days in the office Plan - Discharge Summary Discharge Rx Participant: No New Discharge Prescriptions: Continue Aspirin 81 mg PO HS Albuterol Inhaler [Ventolin Hfa Inhaler] 1 puff INHALATION RT-Q4H PRN PRN Reason: Shortness Of Breath Insulin Glargine,Hum.rec.anlog [Basaglar Kwikpen U-100] 20 unit SQ DAILY Atorvastatin [Lipitor] 40 mg PO HS Clopidogrel [Plavix] 75 mg PO DAILY #90 tablet Dulaglutide [Trulicity] 3 mg SQ OLIVAREZ lisinopriL [Zestril] 10 mg PO DAILY Magnesium Oxide 400 mg PO DAILY levETIRAcetam 500 mg PO BID Furosemide [Lasix] 20 mg PO BID Vitamin B Complex 1 cap PO DAILY Metoprolol Succinate (ER) [Toprol XL] 50 mg PO DAILY Discontinued metFORMIN HCL 1,000 mg PO DAILY Discharge Medication List Albuterol Inhaler [Ventolin Hfa Inhaler] 1 puff INHALATION RT-Q4H PRN 02/04/15 [History] Aspirin 81 mg PO HS 02/04/15 [History] Atorvastatin [Lipitor] 40 mg PO HS 03/24/22 [History] Dulaglutide [Trulicity] 3 mg SQ OLIVAREZ 03/24/22 [History] Furosemide [Lasix] 20 mg PO BID 03/24/22 [History] Insulin Glargine,Hum.rec.anlog [Basaglar Kwikpen U-100] 20 unit SQ DAILY 03/24/22 [History] Magnesium Oxide 400 mg PO DAILY 03/24/22 [History] Vitamin B Complex 1 cap PO DAILY 03/24/22 [History] levETIRAcetam 500 mg PO BID 03/24/22 [History] lisinopriL [Zestril] 10 mg PO DAILY 03/24/22 [History] Clopidogrel [Plavix] 75 mg PO DAILY #90 tablet 05/20/22 [Rx] Metoprolol Succinate (ER) [Toprol XL] 50 mg PO DAILY 06/29/22 [History] Follow up Appointment(s)/Referral(s): Abe Mccain MD [STAFF PHYSICIAN] - 07/12/22 5:00 pm (Appointment is at [facility])
[2022-07-02 08:51] LABS: Basophils % (A) 1 %; Eosinophils # (A) 0.2 k/uL (0-0.7); Eosinophils % (A) 3 %; HCT 36.7 % (39.0-53.0); HGB 12.8 gm/dL (13.0-17.5); Lymphocytes # (A) 1.3 k/uL (1.0-4.8); Lymphocytes % (A) 21 %; MCH 30.4 pg (25.0-35.0); MCV 86.7 fL (80.0-100.0); Mean Platelet Volume 6.9; Monocytes # (A) 0.4 k/uL (0-1.0); Monocytes % (A) 7 %; Neutrophils % (A) 66 %; Platelet Count 209 k/uL (150-450); RBC 4.23 m/uL (4.30-5.90); RDW 13.4 % (11.5-15.5)
[2022-07-02] MEDS ORDERED: CLOPIDOGREL 75 MG TAB PO SCH (09:00)
[2022-07-02] MEDS ORDERED: MAGNESIUM OXIDE 400 MG TAB PO SCH (09:00)
[2022-07-02] MEDS ORDERED: METOPROLOL SUCCINATE (ER) 50 MG TAB.ER.24H PO SCH (09:00)
[2022-07-02] MEDS ORDERED: lisinopriL 10 MG TAB PO SCH (09:00)
[2022-07-02] MEDS ORDERED: FOLIC ACID-VIT B COMPLEX-VIT C 1 CAP PO SCH (09:00)
[2022-07-02 09:03] LABS: African American GFR (CKD) >90 (>60 ml/min/1.73 sqM); Anion Gap 8 mmol/L; Blood Urea Nitrogen 12 mg/dL (9-20); Calcium 8.3 mg/dL (8.4-10.2); Carbon Dioxide 22 mmol/L (22-30); Chloride 102 mmol/L (98-107); Glucose 231 mg/dL (74-99); Non-African American GFR(CKD) >90 (>60 ml/min/1.73 sqM); Sodium 132 mmol/L (137-145)
[2022-07-02 09:19] LABS: Potassium 5.1 mmol/L (3.5-5.1)
[2022-07-02] MEDS: levETIRAcetam 500 MG TAB PO SCH (10:34)
[2022-07-02] MEDS: FUROSEMIDE 20 MG TAB PO SCH (10:34)
[2022-07-02 10:45] VITALS: BP 127/78; PULSE 98; RESP 16; TEMP 98
[2022-07-04] MEDS ORDERED: Dulaglutide [Trulicity] 3 MG/0.5 ML SQ SCH (09:00)
== END 2022-07-02 09:46 | disposition home or self-care (01) ==
LOC: CATHCVL 07:13 → 3SCARD 10:56 → CATHCVL 07-02 09:46
PROVIDERS: ATTEND Internal Medicine Interventional Cardiology
DX: I25.10 Atherosclerotic heart disease of native coronary artery without angina pectoris (principal); I10 Essential (primary) hypertension; Z79.82 Long term (current) use of aspirin; Z79.84 Long term (current) use of oral hypoglycemic drugs; Z95.5 Presence of coronary angioplasty implant and graft; E11.9 Type 2 diabetes mellitus without complications; E78.5 Hyperlipidemia, unspecified
CPT/HCPCS: 94760; 93571; 80048 ×2; 85025 ×2; 92928; C9600; C1769 ×3; C1887; C1894 ×2; C1874; J2250; J2001; J3010; J1644; Q9967

== ENCOUNTER → 2022-09-02 | Outpatient (CLI) | payer BC ==
--- NOTE | 2022-09-03 03:28 | MR ---
EXAMINATION TYPE: MR shoulder LT wo con DATE OF EXAM: 09/02/2022 COMPARISON: None HISTORY: Left shoulder pain Multiplanar multi echo imaging of the left shoulder performed with no contrast. There is mild shoulder joint effusion. The biceps tendon is intact. Subscapularis tendon is intact. T here is some narrowing of the glenohumeral joint space. There is some thickening of the anterior infe rior glenoid labrum consistent with degenerative phenomenon. There is spurring at the AC joint with s ubacromial impingement on the supraspinatus tendon and muscle. There are small areas of increased signal within the supraspinatus tendon near the greater tuberosity humerus. No definite full-thickness tear. The infraspinatus tendon is intact. There are multiple sma ll degenerative cysts in the greater tuberosity humerus. No fracture seen. IMPRESSION: Intrasubstance tears of the supraspinatus tendon without a full-thickness tear. Degenerative cyst formation and a humeral head at the greater tuberosity. 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 Degenerative changes in the anterior and inferior glenoid labrum. Sma ll shoulder joint effusion.
== END | disposition home or self-care (01) ==
LOC: RADMRIMAIN 15:26
PROVIDERS: ATTEND Orthopaedic Surgery
DX: S46.012D Strain of muscle(s) and tendon(s) of the rotator cuff of left shoulder, subsequent encounter (principal); M19.012 Primary osteoarthritis, left shoulder; M25.412 Effusion, left shoulder; M85.612 Other cyst of bone, left shoulder; M75.42 Impingement syndrome of left shoulder

== ENCOUNTER 2023-01-14 17:17 | Inpatient (IN) | payer BC ==
[2023-01-14 18:16] LABS: Basophils % (A) 0 %; Eosinophils # (A) 0.2 k/uL (0-0.7); Eosinophils % (A) 3 %; HCT 38.6 % (39.0-53.0); HGB 13.7 gm/dL (13.0-17.5); Lymphocytes # (A) 1.8 k/uL (1.0-4.8); Lymphocytes % (A) 25 %; MCH 30.7 pg (25.0-35.0); MCHC 35.6 g/dL (31.0-37.0); MCV 86.1 fL (80.0-100.0); Mean Platelet Volume 6.9; Monocytes # (A) 0.4 k/uL (0-1.0); Monocytes % (A) 6 %; Neutrophils # (A) 4.3 k/uL (1.3-7.7); Neutrophils % (A) 62 %; Platelet Count 242 k/uL (150-450); RBC 4.48 m/uL (4.30-5.90); RDW 13.1 % (11.5-15.5); WBC 6.9 k/uL (3.8-10.6)
[2023-01-14] MEDS ORDERED: HEPARIN SODIUM 1,000 UN/ML (10ML VL) IV ONE (18:26)
[2023-01-14] MEDS ORDERED: ASPIRIN 81 MG PO STA (18:27)
[2023-01-14] MEDS ORDERED: NITROGLYCERIN OINT 1 INCH/GM PACKET TOPICAL STA (18:28)
[2023-01-14 18:29] LABS: ALT 66 U/L (4-49); AST 44 U/L (17-59); African American GFR (CKD) >90 (>60 ml/min/1.73 sqM); Albumin 4.2 g/dL (3.5-5.0); Alkaline Phosphatase 55 U/L (38-126); Anion Gap 11 mmol/L; Blood Urea Nitrogen 25 mg/dL (9-20); Calcium 9.6 mg/dL (8.4-10.2); Carbon Dioxide 25 mmol/L (22-30); Chloride 96 mmol/L (98-107); Glucose 139 mg/dL (74-99); Lipase 225 U/L (23-300); Magnesium 1.8 mg/dL (1.6-2.3); Non-African American GFR(CKD) >90 (>60 ml/min/1.73 sqM); Partial Thromboplastin Time 24.4 sec (22.0-30.0); Potassium 4.5 mmol/L (3.5-5.1); Prothrombin Time 10.5 sec (9.0-12.0); Sodium 132 mmol/L (137-145); Total Bilirubin 0.9 mg/dL (0.2-1.3); Total Protein 6.6 g/dL (6.3-8.2)
--- NOTE | 2023-01-14 18:38 | ED ---
Chest Pain HPI - General Chief Complaint: Chest Pain Stated Complaint: chest tightness,sent by PCP Time Seen by Provider: 01/14/23 17:21 Source: patient, RN/MD, RN notes reviewed Mode of arrival: ambulatory Limitations: no limitations - History of Present Illness Initial Comments: 57-year-old male with a history of coronary artery disease status post 3 stents placed last fall who over last several weeks apparently is been having intermittent episodes and more frequent episodes of retrosternal chest pain. He was seen by his doctor today and sent here because of this. He states his pain feels like a light pressure currently 2/10 severity in the office at 0/10. No fevers chills nausea vomiting sweats at this time. Has been having episodes of nausea with some shortness of breath which seemed to resolve spontaneously. He states the episodes are similar to his previous episodes of cardiac disease MD Complaint: chest pain - Related Data Home Medications Medication Instructions Recorded Confirmed Albuterol Inhaler [Ventolin Hfa 1 puff INHALATION RT-Q4H PRN 02/04/15 01/14/23 Inhaler] Aspirin 81 mg PO HS 02/04/15 01/14/23 Atorvastatin [Lipitor] 40 mg PO HS 03/24/22 01/14/23 Dulaglutide [Trulicity] 3 mg SQ OLIVAREZ 03/24/22 01/14/23 Furosemide [Lasix] 20 mg PO BID 03/24/22 01/14/23 Insulin Glargine,Hum.rec.anlog 20 unit SQ PC-SUPPER 03/24/22 01/14/23 [Basaglar Kwikpen U-100] Magnesium Oxide 400 mg PO HS 03/24/22 01/14/23 Vitamin B Complex 1 cap PO HS 03/24/22 01/14/23 levETIRAcetam 500 mg PO BID 03/24/22 01/14/23 lisinopriL [Zestril] 10 mg PO DAILY 03/24/22 01/14/23 Metoprolol Succinate (ER) [Toprol 50 mg PO DAILY 06/29/22 01/14/23 XL] metFORMIN HCL [Glucophage] 1,000 mg PO DAILY 01/14/23 01/14/23 Previous Rx's Medication Instructions Recorded Clopidogrel [Plavix] 75 mg PO DAILY #90 tablet 05/20/22 Allergies Allergy/AdvReac Type Severity Reaction Status Date / Time tree nut Allergy Anaphylaxis Verified 01/14/23 20:23 Review of Systems ROS Statement: Those systems with pertinent positive or pertinent negative responses have been documented in the HPI. ROS Other: All systems not noted in ROS Statement are negative. EKG Findings - EKG Results: EKG: interpreted by ERMD (EKG interpreted by me at time of treatment normal sinus rhythm 83 MI interval 163 QRS duration 98 QT/QTC/448 possible left atrial enlargement this is compared with one sent from the office today which shows similar configuration.) Past Medical History Past Medical History: Asthma, Diabetes Mellitus, Hyperlipidemia, Hypertension, Seizure Disorder Additional Past Medical History / Comment(s): June was the latest seizure. WAS 1 YEAR AGO History of Any Multi-Drug Resistant Organisms: None Reported Past Surgical History: Heart Catheterization With Stent, Orthopedic Surgery Additional Past Surgical History / Comment(s): RIGHT WRIST SURGERY, LEFT ARM & SHOULDER PRITCHARD/SKIN GRAFTING, RT LEG PRITCHARD/SKIN GRAFT, LT KNEE SCOPE, 27 stitches in the tip of the left index finger. COLONOSCOPY/EGD Past Anesthesia/Blood Transfusion Reactions: No Reported Reaction Date of Last Stent Placement:: 05/20/22 Past Psychological History: No Psychological Hx Reported Smoking Status: Former smoker Past Alcohol Use History: Rare Past Drug Use History: Marijuana - Past Family History Father Family Medical History: CVA/TIA, Myocardial Infarction ([place]) Additional Family Medical History / Comment(s): Father is 82 yrs old. Mother Family Medical History: No Reported History General Exam - General Exam Comments Initial Comments: This is a well-developed well-nourished awake alert oriented 4 male Limitations: no limitations General appearance: alert, in no apparent distress Head exam: Present: atraumatic, normocephalic, normal inspection Eye exam: Present: normal appearance, PERRL, EOMI. Absent: scleral icterus, conjunctival injection, periorbital swelling ENT exam: Present: normal exam, mucous membranes moist Neck exam: Present: normal inspection, full ROM, other (No stridor JVD or bruits). Absent: tenderness, meningismus, lymphadenopathy Respiratory exam: Present: normal lung sounds bilaterally. Absent: respiratory distress, wheezes, rales, rhonchi, stridor Cardiovascular Exam: Present: regular rate, normal rhythm, normal heart sounds. Absent: systolic murmur, diastolic murmur, rubs, gallop, clicks GI/Abdominal exam: Present: soft, normal bowel sounds. Absent: distended, tenderness, guarding, rebound, rigid Extremities exam: Present: normal inspection, full ROM, normal capillary refill. Absent: tenderness, pedal edema, joint swelling, calf tenderness Back exam: Present: normal inspection Neurological exam: Present: alert, oriented X3, CN II-XII intact Psychiatric exam: Present: normal affect, normal mood Skin exam: Present: warm, dry, intact, normal color. Absent: rash Course Vital Signs 01/14/23 01/14/23 01/14/23 17:22 20:09 21:31 Temperature 97.7 F Pulse Rate 91 91 80 Respiratory 18 18 16 Rate Blood Pressure 125/82 108/50 105/85 O2 Sat by Pulse 98 96 97 Oximetry - Reevaluation(s) Reevaluation #1: 01/14/23 21:52 Reevaluation the patient after treatment is chest pressure is gone at this time. Chest Pain MDM - MDM I did discuss findings with the patient as well as early with Dr. Rangel patient will be admitted for inpatient evaluation treatment cardiology consultation I did discuss the case with Dr. Walter. I did interpret the imaging showed no evidence of acute processes at this timeWas pt. sent in by a medical profe ssional or institution (Dr. PA, DIRECTOR OF PROMOTIONS, urgent care, hospital, or skilled nursing...) When possible be specific @ -Dr. Rangel Did you speak to anyone other than the patient for history (EMS, parent, family, police, friend...)? What history was obtained from this source @ -No Did you review nursing and triage notes (agree or disagree)? Why? @ -I reviewed and agree with nursing and triage notes Were old charts reviewed (outside hosp., previous admission, EMS record, old EKG, old radiological studies, urgent care reports/EKG's, skilled nursing records)? Report findings @ -EKG old charts were reviewed Differential Diagnosis (chest pain, altered mental status, abdominal pain women, abdominal pain men, vaginal bleeding, weakness, fever, dyspnea, syncope, headache, dizziness, GI bleed, back pain, seizure, CVA, palpatations, mental health, musculoskeletal)? @ -Chest pain EKG interpreted by me (3pts min.). @ -As above X-rays interpreted by me (1pt min.). @ -As above CT interpreted by me (1pt min.). @ -None done U/S interpreted by me (1pt. min.). @ -None done What testing was considered but not performed or refused? (CT, X-rays, U/S, labs)? Why? @ -None What meds were considered but not given or refused? Why? @ -None Did you discuss the management of the patient with other professionals (professionals i.e. , PA, DIRECTOR OF PROMOTIONS, lab, RT, psych nurse, social work coordinator, belt conveyor drier, teacher, jailer/training officer, child support case officer)? Give summary @ -Dr. Rangel and Dr. Walter Was smoking cessation discussed for >3mins.? @ -No Was critical care preformed (if so, how long)? @ -[35 minutes Were there social determinants of health that impacted care today? How? (Homelessness, low income, unemployed, alcoholism, drug addiction, transportation, low edu. Level, literacy, decrease access to med. care, [facility], rehab)? @ -No Was there de-escalation of care discussed even if they declined (Discuss DNR or withdrawal of care, Hospice)? DNR status @ -No What co-morbidities impacted this encounter? (DM, HTN, Smoking, COPD, CAD, Cancer, CVA, ARF, Chemo, Hep., AIDS, mental health diagnosis, sleep apnea, morbid obesity)? @ -Coronary artery disease previous stenting Was patient admitted / discharged? Hospital course, mention meds given and route, prescriptions, significant lab abnormalities, going to OR and other pertinent info. @ -Patient was admitted for inpatient evaluation treatment cardiology consultation Undiagnosed new problem with uncertain prognosis? @ -No Drug Therapy requiring intensive monitoring for toxicity (Heparin, Nitro, Insulin, Cardizem)? @ -No Were any procedures done? @ -No Diagnosis/symptom? @ -Unstable angina, chest pain Acute, or Chronic, or Acute on Chronic? @ -Acute Uncomplicated (without systemic symptoms) or Complicated (systemic symptoms)? @ -default Side effects of treatment? @ -No Exacerbation, Progression, or Severe Exacerbation? @ -Progression of coronary artery disease Poses a threat to life or bodily function? How? (Chest pain, [place], [place], pneumonia, PE, COPD, DKA, ARF, appy, cholecystitis, CVA, Diverticulitis, Homicidal, Suicidal, threat to staff... and all critical care pts) @ -Just chest pain Critical Care Time Critical Care Time: Yes Total Critical Care Time: 35 Disposition Clinical Impression: Unstable angina, Chest pain Disposition: ADMITTED IP TO THIS HOSP Condition: Stable Referrals: Parish Rangel MD [Primary Care Provider] - 1-2 days Decision Date: 01/14/23 Decision Time: 21:30
[2023-01-14] MEDS: HEPARIN SOD,PORK IN 0.45% NACL 25,000 UNIT in 0.45% NACL 1 250ML.BAG IV SCH (19:01)
--- NOTE | 2023-01-14 19:34 | XR ---
EXAMINATION TYPE: XR chest 2V DATE OF EXAM: 01/14/2023 7:31 PM COMPARISON: Chest radiographs from 03/27/2022 TECHNIQUE: XR chest 2V Frontal and lateral views of the chest. CLINICAL INDICATION:Male, 57 years old with history of Chest Pain; FINDINGS: Lungs/Pleura: There is no evidence of pleural effusion, focal consolidation, or pneumothorax. Pulmonary vascularity: Unremarkable. Heart/mediastinum: Cardiomediastinal silhouette is unremarkable. Musculoskeletal: No acute osseous pathology. IMPRESSION: No acute cardiopulmonary disease/process.
[2023-01-14] MEDS ORDERED: NITROGLYCERIN SL TABS 0.4 MG TAB SUBLINGUAL PRN (21:57)
[2023-01-14] MEDS ORDERED: ALBUTEROL NEBULIZED 2.5 MG/3 ML INHALATION PRN (21:59)
[2023-01-14] MEDS: NITROGLYCERIN OINT 1 INCH/GM PACKET TOPICAL SCH ×2 (23:24→23:26)
[2023-01-15] MEDS: HEPARIN SODIUM 1,000 UN/ML (10ML VL) IV PRN ×2 (01:05→22:13)
[2023-01-15 06:07] LABS: Glucose,Whole Blood 143 mg/dL (70-110)
[2023-01-15] MEDS: NITROGLYCERIN OINT 1 INCH/GM PACKET TOPICAL SCH ×4 (06:17→23:26)
[2023-01-15 06:50] LABS: Basophils % (A) 1 %; Eosinophils # (A) 0.2 k/uL (0-0.7); Eosinophils % (A) 3 %; HCT 36.3 % (39.0-53.0); HGB 12.8 gm/dL (13.0-17.5); Lymphocytes % (A) 35 %; MCH 30.9 pg (25.0-35.0); MCHC 35.2 g/dL (31.0-37.0); MCV 87.8 fL (80.0-100.0); Mean Platelet Volume 7.3; Monocytes # (A) 0.4 k/uL (0-1.0); Monocytes % (A) 6 %; Neutrophils % (A) 53 %; Platelet Count 183 k/uL (150-450); RBC 4.13 m/uL (4.30-5.90); RDW 13.1 % (11.5-15.5); WBC 5.8 k/uL (3.8-10.6)
[2023-01-15 06:56] LABS: Prothrombin Time 10.8 sec (9.0-12.0)
[2023-01-15] MEDS: METOPROLOL SUCCINATE (ER) 50 MG TAB.ER.24H PO SCH (08:34)
[2023-01-15] MEDS: CLOPIDOGREL 75 MG TAB PO SCH (08:34)
[2023-01-15] MEDS: levETIRAcetam 500 MG TAB PO SCH ×2 (08:35→20:17)
[2023-01-15] MEDS ORDERED: ASPIRIN 325 MG TAB PO SCH (09:00)
[2023-01-15] MEDS ORDERED: FUROSEMIDE 20 MG TAB PO SCH (09:00)
[2023-01-15] MEDS ORDERED: metFORMIN 500 MG TAB PO SCH (09:00)
[2023-01-15] MEDS ORDERED: lisinopriL 10 MG TAB PO SCH (09:00)
--- NOTE | 2023-01-15 12:00 | P.HPIM ---
History of Present Illness 57 male came in with epigastric pain pressure-like chest pain in the retrosternal area 2/10 in severity nonradiating not associated with food nonpleuritic in nature, no associated diaphoresis lightheadedness. Patient the does have history of coronary artery disease with recent stent placement. Patient denied nausea vomiting. Patient is bit hyponatremic with sodium of 132/patient is on Lasix I do not have his be previous echocardiogram. Patient is presently not in heart failure. Patient blood pressure is low and is on lisinopril 10 mg. REVIEW OF SYSTEMS: CONSTITUTIONAL: No fever, no malaise, no fatigue. HEENT: No recent visual problems or hearing problems. Denied any sore throat. CARDIOVASCULAR: Noorthopnea, PND, no palpitations, no syncope. PULMONARY: No shortness of breath, no cough, no hemoptysis. GASTROINTESTINAL: No diarrhea, no nausea, no vomiting, no abdominal pain. NEUROLOGICAL: No headaches, no weakness, no numbness. HEMATOLOGICAL: Denies any bleeding or petechiae. GENITOURINARY: Denies any burning micturition, frequency, or urgency. MUSCULOSKELETAL/RHEUMATOLOGICAL: Denies any joint pain, swelling, or any muscle pain. ENDOCRINE: Denies any polyuria or polydipsia. The rest of the 14-point review of systems is negative. PHYSICAL EXAMINATION: GENERAL: The patient is alert and oriented x3, not in any acute distress. Obese HEENT: Pupils are round and equally reacting to light. EOMI. No scleral icterus. No conjunctival pallor. Normocephalic, atraumatic. No pharyngeal erythema. No thyromegaly. CARDIOVASCULAR: S1 and S2 present. No murmurs, rubs, or gallops. PULMONARY: Chest is clear to auscultation, no wheezing or crackles. ABDOMEN: Soft, nontender, nondistended, normoactive bowel sounds. No palpable organomegaly. MUSCULOSKELETAL: No joint swelling or deformity. EXTREMITIES: No cyanosis, clubbing, or pedal edema. NEUROLOGICAL: Gross neurological examination did not reveal any focal deficits. SKIN: No rashes. Assessment and plan -Chest pain rule out acute coronary syndromes troponins are negative possibly of unstable angina, cardiology evaluation. Patient is presently on IV heparin -Hyponatremia secondary to Lasix which will be held -Hypertension patient is hypotensive and off on the cervical Have asthma without any acute exacerbation x-ray and-obesity -Seizure disorder -Hyperlipidemia Hypertension coronary disease with stent placement -Type 2 diabetes mellitus will resume his home regimen along with sliding scale insulin -Ruled out pulmonary embolism: D-dimer is negative DVT prophylaxis: Patient on IV heparin at this time Past Medical History Past Medical History: Asthma, Diabetes Mellitus, Hyperlipidemia, Hypertension, Seizure Disorder Additional Past Medical History / Comment(s): June was the latest seizure. WAS 1 YEAR AGO History of Any Multi-Drug Resistant Organisms: None Reported Past Surgical History: Heart Catheterization With Stent, Orthopedic Surgery Additional Past Surgical History / Comment(s): RIGHT WRIST SURGERY, LEFT ARM & SHOULDER PRITCHARD/SKIN GRAFTING, RT LEG PRITCHARD/SKIN GRAFT, LT KNEE SCOPE, 27 stitches in the tip of the left index finger. COLONOSCOPY/EGD Past Anesthesia/Blood Transfusion Reactions: No Reported Reaction Date of Last Stent Placement:: 05/20/22 Past Psychological History: No Psychological Hx Reported Additional Psychological History / Comment(s): Pt resides with his spouse. He is independent. Smoking Status: Former smoker Past Alcohol Use History: Rare Additional Past Alcohol Use History / Comment(s): Pt started smoking in 1985 and quit in 2008 Past Drug Use History: Marijuana Additional Drug Use History / Comment(s): WEEKLY USE, INSTRUCTED TO ABSTAIN 24 HRS PRIOR TO PROCEDURE - Past Family History Father Family Medical History: CVA/TIA, Myocardial Infarction ([place]) Additional Family Medical History / Comment(s): Father is 82 yrs old. Mother Family Medical History: No Reported History Medications and Allergies Home Medications Medication Instructions Recorded Confirmed Type Albuterol Inhaler [Ventolin Hfa 1 puff INHALATION RT-Q4H PRN 02/04/15 01/14/23 History Inhaler] Aspirin 81 mg PO HS 02/04/15 01/14/23 History Atorvastatin [Lipitor] 40 mg PO HS 03/24/22 01/14/23 History Dulaglutide [Trulicity] 3 mg SQ OLIVAREZ 03/24/22 01/14/23 History Furosemide [Lasix] 20 mg PO BID 03/24/22 01/14/23 History Insulin Glargine,Hum.rec.anlog 20 unit SQ PC-SUPPER 03/24/22 01/14/23 History [Leonardoagldaisy Garcia U-100] Magnesium Oxide 400 mg PO HS 03/24/22 01/14/23 History Vitamin B Complex 1 cap PO HS 03/24/22 01/14/23 History levETIRAcetam 500 mg PO BID 03/24/22 01/14/23 History lisinopriL [Zestril] 10 mg PO DAILY 03/24/22 01/14/23 History Clopidogrel [Plavix] 75 mg PO DAILY #90 tablet 05/20/22 01/14/23 Rx Metoprolol Succinate (ER) [Toprol 50 mg PO DAILY 06/29/22 01/14/23 History XL] metFORMIN HCL [Glucophage] 1,000 mg PO DAILY 01/14/23 01/14/23 History Allergies Allergy/AdvReac Type Severity Reaction Status Date / Time tree nut Allergy Anaphylaxis Verified 01/14/23 20:23 Physical Exam Vitals: Vital Signs Temp Pulse Pulse Resp BP BP Pulse Ox 01/15/23 08:00 98.2 F 94 18 99/63 97 01/15/23 06:18 90/53 01/15/23 03:29 98.7 F 84 16 100/65 99 01/15/23 00:00 98.6 F 80 18 114/71 99 01/14/23 23:23 80 16 93/55 97 01/14/23 21:31 80 16 105/85 97 01/14/23 20:09 91 18 108/50 96 01/14/23 17:22 97.7 F 91 18 125/82 98 Intake and Output 01/14/23 01/15/23 01/15/23 22:59 06:59 14:59 Intake Total 309.964 467.295 Balance 309.964 467.295 Intake: Intake, IV Titration 59.964 107.295 Amount Heparin Sod,Pork in 0.45% 59.964 107.295 NaCl 25,000 unit In 0.45 % NaCl 1 250ml.bag @ 6.8 UNITS/KG/HR 9.994 mls/hr IV .Q24H DERRELL Rx#: [id number] Oral 250 360 Other: # Voids 2 Weight 146.964 kg 145.6 kg Results CBC & Chem 7: 01/15/23 06:31 01/14/23 17:56 Labs: Abnormal Lab Results - Last 24 Hours (Table) 01/14/23 01/14/23 01/15/23 Range/Units 17:56 17:56 00:27 RBC (4.30-5.90) m/uL Hgb (13.0-17.5) gm/dL Hct 38.6 L (39.0-53.0) % APTT 33.7 H (22.0-30.0) sec Sodium 132 L (137-145) mmol/L Chloride 96 L (98-107) mmol/L BUN 25 H (9-20) mg/dL Glucose 139 H (74-99) mg/dL POC Glucose (mg/dL) (70-110) mg/dL ALT 66 H (4-49) U/L 01/15/23 01/15/23 01/15/23 Range/Units 06:05 06:31 06:31 RBC 4.13 L (4.30-5.90) m/uL Hgb 12.8 L (13.0-17.5) gm/dL Hct 36.3 L (39.0-53.0) % APTT 89.4 H (22.0-30.0) sec Sodium (137-145) mmol/L Chloride (98-107) mmol/L BUN (9-20) mg/dL Glucose (74-99) mg/dL POC Glucose (mg/dL) 143 H (70-110) mg/dL ALT (4-49) U/L Thrombosis Risk Factor Assmnt - Choose All That Apply Any of the Below Risk Factors Present?: Yes Each Factor Represents 1 point: Age 41-60 years, Medical pt on bed rest, Obesity (BMI >25) Other Risk Factors: No Other congenital or acquired thrombophilia - If yes, enter type in comment: No Thrombosis Risk Factor Assessment Total Risk Factor Score: 3 Thrombosis Risk Factor Assessment Level: Moderate Risk
[2023-01-15 12:18] LABS: Glucose,Whole Blood 188 mg/dL (70-110)
[2023-01-15] MEDS: INSULIN ASPART (NovoLOG) 100 UNIT/ML VIAL SQ SCH ×3 (12:33→20:17)
--- NOTE | 2023-01-15 14:35 | P.CRDCN ---
History of Present Illness Consult date: 01/15/23 Requesting physician: Edilson E Jose Angel Reason for Consult (text): chest pain Chief complaint: chest pressure History of present illness: This is a pleasant 57-year-old gentleman who follows with Dr. Mccain in the office. He has a history of CAD, prior stenting of the left circumflex and LAD, hypertension, hyperlipidemia, diabetes, known occluded right radial artery following his first heart catheterization in May 2022, and nicotine dependence. Presented at the advice of his primary care provider. For the last 3 weeks he's been having complaints of chest pressure gradient 2 out of 10 in severity that is random in occurrence and lasting about 10-15 minutes. She feels that the discomfort is somewhat similar but less intense compared to his symptoms prior to his PCI last fall. EKG and cardiac enzymes have been unremarkable. He has mild stable dyspnea on exertion and occasional lower extremity edema. He's been compliant with his medications. He's had no complaints of orthopnea or PND. He's had no palpitations. He does have occasional dizziness but no syncope. Chest X-ray on admission showed no acute cardiopulmonary process/disease. Past Medical History Past Medical History: Asthma, Diabetes Mellitus, Hyperlipidemia, Hypertension, Seizure Disorder Additional Past Medical History / Comment(s): June was the latest seizure. WAS 1 YEAR AGO History of Any Multi-Drug Resistant Organisms: None Reported Past Surgical History: Heart Catheterization With Stent, Orthopedic Surgery Additional Past Surgical History / Comment(s): RIGHT WRIST SURGERY, LEFT ARM & SHOULDER PRITCHARD/SKIN GRAFTING, RT LEG PRITCHARD/SKIN GRAFT, LT KNEE SCOPE, 27 stitches in the tip of the left index finger. COLONOSCOPY/EGD Past Anesthesia/Blood Transfusion Reactions: No Reported Reaction Date of Last Stent Placement:: 05/20/22 Past Psychological History: No Psychological Hx Reported Additional Psychological History / Comment(s): Pt resides with his spouse. He is independent. Smoking Status: Former smoker Past Alcohol Use History: Rare Additional Past Alcohol Use History / Comment(s): Pt started smoking in 1985 and quit in 2008 Past Drug Use History: Marijuana Additional Drug Use History / Comment(s): WEEKLY USE, INSTRUCTED TO ABSTAIN 24 HRS PRIOR TO PROCEDURE - Past Family History Father Family Medical History: CVA/TIA, Myocardial Infarction ([place]) Additional Family Medical History / Comment(s): Father is 82 yrs old. Mother Family Medical History: No Reported History Medications and Allergies Home Medications Medication Instructions Recorded Confirmed Type Albuterol Inhaler [Ventolin Hfa 1 puff INHALATION RT-Q4H PRN 02/04/15 01/14/23 History Inhaler] Aspirin 81 mg PO HS 02/04/15 01/14/23 History Atorvastatin [Lipitor] 40 mg PO HS 03/24/22 01/14/23 History Dulaglutide [Trulicity] 3 mg SQ OLIVAREZ 03/24/22 01/14/23 History Furosemide [Lasix] 20 mg PO BID 03/24/22 01/14/23 History Insulin Glargine,Hum.rec.anlog 20 unit SQ PC-SUPPER 03/24/22 01/14/23 History [Basaglar Kwikpen U-100] Magnesium Oxide 400 mg PO HS 03/24/22 01/14/23 History Vitamin B Complex 1 cap PO HS 03/24/22 01/14/23 History levETIRAcetam 500 mg PO BID 03/24/22 01/14/23 History lisinopriL [Zestril] 10 mg PO DAILY 03/24/22 01/14/23 History Clopidogrel [Plavix] 75 mg PO DAILY #90 tablet 05/20/22 01/14/23 Rx Metoprolol Succinate (ER) [Toprol 50 mg PO DAILY 06/29/22 01/14/23 History XL] metFORMIN HCL [Glucophage] 1,000 mg PO DAILY 01/14/23 01/14/23 History Allergies Allergy/AdvReac Type Severity Reaction Status Date / Time tree nut Allergy Anaphylaxis Verified 01/14/23 20:23 Physical Exam Vitals: Vital Signs Temp Pulse Pulse Resp BP BP Pulse Ox 01/15/23 12:00 98.2 F 72 18 116/82 98 01/15/23 08:00 98.2 F 94 18 99/63 97 01/15/23 06:18 90/53 01/15/23 03:29 98.7 F 84 16 100/65 99 01/15/23 00:00 98.6 F 80 18 114/71 99 01/14/23 23:23 80 16 93/55 97 01/14/23 21:31 80 16 105/85 97 01/14/23 20:09 91 18 108/50 96 01/14/23 17:22 97.7 F 91 18 125/82 98 Intake and Output 01/14/23 01/15/23 01/15/23 22:59 06:59 14:59 Intake Total 309.964 467.295 Balance 309.964 467.295 Intake: Intake, IV Titration 59.964 107.295 Amount Heparin Sod,Pork in 0.45% 59.964 107.295 NaCl 25,000 unit In 0.45 % NaCl 1 250ml.bag @ 6.8 UNITS/KG/HR 9.994 mls/hr IV .Q24H [facility] Rx#: [id number] Oral 250 360 Other: # Voids 2 Weight 146.964 kg 145.6 kg PHYSICAL EXAMINATION: This is a 57-year-old male in no apparent distress at the time of my examination. HEENT: Head is atraumatic, normocephalic. Pupils are equal, round. Sclerae anicteric. Conjunctivae are clear. Mucous membranes of the mouth are moist. Neck is supple. There is no elevated jugular venous pressure. No carotid bruit is heard. CHEST EXAMINATION: Lungs sounds diminished bilaterally. No wheezes rales or rhonchi. Respirations even and nonlabored. HEART EXAMINATION: Heart regular, positive S1 and S2. No S3. No S4. With a systolic murmur. ABDOMEN: Soft, nontender. Bowel sounds are heard. No organomegaly noted. EXTREMITIES: 2+ peripheral pulses with evidence of trace peripheral edema and no calf tenderness noted. NEUROLOGIC EXAMINATION: Patient is awake, alert and oriented x3. Results 01/15/23 06:31 01/14/23 17:56 Cardiac Enzymes 01/14/23 01/14/23 01/14/23 Range/Units 17:56 17:56 22:48 AST 44 (17-59) U/L Troponin I <0.012 <0.012 (0.000-0.034) ng/mL 01/15/23 Range/Units 00:27 AST (17-59) U/L Troponin I <0.012 (0.000-0.034) ng/mL Coagulation 01/14/23 01/15/23 01/15/23 Range/Units 17:56 00:27 06:31 PT 10.5 10.8 (9.0-12.0) sec APTT 24.4 33.7 H (22.0-30.0) sec 01/15/23 Range/Units 06:31 PT (9.0-12.0) sec APTT 89.4 H (22.0-30.0) sec CBC 01/14/23 01/15/23 Range/Units 17:56 06:31 WBC 6.9 5.8 (3.8-10.6) k/uL RBC 4.48 4.13 L (4.30-5.90) m/uL Hgb 13.7 12.8 L (13.0-17.5) gm/dL Hct 38.6 L 36.3 L (39.0-53.0) % Plt Count 242 183 (150-450) k/uL Comprehensive Metabolic Panel 01/14/23 Range/Units 17:56 Sodium 132 L (137-145) mmol/L Potassium 4.5 (3.5-5.1) mmol/L Chloride 96 L (98-107) mmol/L Carbon Dioxide 25 (22-30) mmol/L BUN 25 H (9-20) mg/dL Creatinine 0.85 (0.66-1.25) mg/dL Glucose 139 H (74-99) mg/dL Calcium 9.6 (8.4-10.2) mg/dL AST 44 (17-59) U/L ALT 66 H (4-49) U/L Alkaline Phosphatase 55 (38-126) U/L Total Protein 6.6 (6.3-8.2) g/dL Albumin 4.2 (3.5-5.0) g/dL Current Medications Generic Name Dose Route Start Last Admin Trade Name Freq PRN Reason Stop Dose Admin Albuterol Sulfate 2.5 mg 01/14/23 21:59 Albuterol Nebulized 2.5 Mg/3 Ml INHALATION RT-Q4H PRN Shortness Of Breath Aspirin 81 mg 01/16/23 09:00 Aspirin 81 Mg PO DAILY [facility] Atorvastatin Calcium 40 mg 01/15/23 21:00 Atorvastatin 40 Mg Tab PO HS [facility] Clopidogrel Bisulfate 75 mg 01/15/23 09:00 01/15/23 08:34 Clopidogrel 75 Mg Tab PO 75 mg DAILY [facility] Administration Heparin Sodium (Porcine) 0 unit 01/14/23 18:26 01/15/23 01:05 Heparin Sodium 1,000 Un/Ml (10ml Vl) IV 7,350 unit PER PROTOCOL PRN Administration Low PTT Protocol Heparin Sodium/Sodium Chloride 250 mls @ 9.994 mls/hr 01/14/23 18:30 01/15/23 08:28 25,000 unit/ Sodium Chloride IV 7.8 units/kg/hr .Q24H [facility] 11.463 mls/hr Titration Protocol 6.8 UNITS/KG/HR Insulin Aspart 0 unit 01/15/23 12:30 01/15/23 12:33 Insulin Aspart (Novolog) 100 Unit/Ml Vial SQ 2 unit ACHS [facility] Administration Protocol Insulin Detemir 20 unit 01/15/23 21:00 Insulin Detemir (Levemir) 100 Unit/Ml Syr SQ HS [facility] Levetiracetam 500 mg 01/15/23 09:00 01/15/23 08:35 Levetiracetam 500 Mg Tab PO 500 mg BID [facility] Administration Magnesium Oxide 400 mg 01/15/23 21:00 Magnesium Oxide 400 Mg Tab PO HS [facility] Metoprolol Succinate 50 mg 01/15/23 09:00 01/15/23 08:34 Metoprolol Succinate (Er) 50 Mg Tab.Er.24h PO 50 mg DAILY [facility] Administration Nitroglycerin 0.4 mg 01/14/23 21:57 Nitroglycerin Sl Tabs 0.4 Mg Tab SUBLINGUAL Q5M PRN Chest Pain Nitroglycerin 1 inch 01/15/23 00:00 01/15/23 12:16 Nitroglycerin Oint 1 Inch/Gm Packet TOPICAL Not Given Q6HR [facility] Non-Formulary Medication 3 mg 01/16/23 09:00 Dulaglutide [Trulicity] SQ OLIVAREZ [facility] Intake and Output 01/14/23 01/15/23 01/15/23 22:59 06:59 14:59 Intake Total 309.964 467.295 Balance 309.964 467.295 Intake: Intake, IV Titration 59.964 107.295 Amount Heparin Sod,Pork in 0.45% 59.964 107.295 NaCl 25,000 unit In 0.45 % NaCl 1 250ml.bag @ 6.8 UNITS/KG/HR 9.994 mls/hr IV .Q24H [facility] Rx#: [id number] Oral 250 360 Other: # Voids 2 Weight 146.964 kg 145.6 kg 01/15/23 06:31 01/14/23 17:56 Assessment and Plan Assessment: #1 symptoms of chest discomfort, reminding him of symptoms prior to PCI and Oc tober 2021 #2 CAD status post PCI of the left circumflex and LAD 3 hypertension #4 hyperlipidemia #5 diabetes Plan: From cardiology perspective medications were reviewed and will continue the same. We will continue IV heparin. Increase activity, ambulate the patient in the hallways. We will keep him nothing by mouth after midnight. Depending on his symptoms and overall status further recommendations will be made regarding possible cardiac catheterization versus stress testing on Tuesday. [facility] REP note has been reviewed, I agree with a documented findings and plan of care. Patient was seen and examined.
[2023-01-15] MEDS: HEPARIN SOD,PORK IN 0.45% NACL 25,000 UNIT in 0.45% NACL 1 250ML.BAG IV SCH (15:36)
[2023-01-15 16:45] LABS: Glucose,Whole Blood 130 mg/dL (70-110)
--- NOTE | 2023-01-15 18:26 | CA ---
Transthoracic Echo Report Name: Joe Harrell Age: 57 Gender: M : 1965 Exam Date: 01/15/2023 12:11 Exam Location: [facility] Ht (in): 70 Wt (lb): 320 Ordering Physician: Monse Navarro Attending/Referring Phys: [id number], Melanie Panel Raiser Operator Saniya Santamaria, RDCS Procedure CPT: Indications: Chest Pain Cardiac Hx: Technical Quality: Technically difficult study Contrast 1: Lumason Total Dose (mL): 3 Contrast 2: Total Dose (mL): MEASUREMENTS (Male / Female) Normal Values 2D ECHO LV Diastolic Diameter PLAX 4.2 cm 4.2 - 5.9 / 3.9 - 5.3 cm LV Systolic Diameter PLAX 4.0 cm IVS Diastolic Thickness 1.1 cm 0.6 - 1.0 / 0.6 - 0.9 cm LVPW Diastolic Thickness 1.2 cm 0.6 - 1.0 / 0.6 - 0.9 cm LV Relative Wall Thickness 0.6 RV Internal Dim ED PLAX 3.3 cm LA Systolic Diameter LX 3.8 cm 3.0 - 4.0 / 2.7 - 3.8 cm LA Volume 42.6 cm??? 18 - 58 / 22 - 52 cm??? M-MODE Aortic Root Diameter MM 3.5 cm AV Cusp Separation MM 1.9 cm DOPPLER AV Peak Velocity 117.9 cm/s AV Peak Gradient 5.6 mmHg MV Area PHT 5.7 cm??? Mitral E Point Velocity 76.8 cm/s Mitral A Point Velocity 84.9 cm/s Mitral E to A Ratio 0.9 MV Deceleration Time 133.6 ms TR Peak Velocity 240.1 cm/s TR Peak Gradient 23.1 mmHg Right Ventricular Systolic Press 26.5 mmHg FINDINGS Left Ventricle Left ventricular ejection fraction is estimated at 50-55 %. Left ventricular cavity size normal. Mildly increased septal wall thickness. Right Ventricle Mild right ventricular dilatation. Right ventricular systolic pressure within normal limits. Right Atrium Right atrium not well visualized. Left Atrium Normal left atrial size. Mitral Valve Mitral valve not well visualized. Aortic Valve Aortic valve not well visualized. No aortic valve stenosis or regurgitation. Tricuspid Valve Tricuspid valve not well visualized. Mild tricuspid regurgitation. Pulmonic Valve Pulmonic valve not well visualized. Pericardium Normal pericardium. No pericardial effusion. Aorta Normal size aortic root and proximal ascending aorta. CONCLUSIONS Lumason ECHO contrast used for improved visualization of the endocardial borders (inadequate visualization of two or more contiguous segments). Technically difficult study. The ventricle systolic function borderline normal Valvular structures were not well visualized Previewed by: Dr. David Zamora MD (Electronically Signed) Final Date: 15 January 2023 18:26
[2023-01-15 20:09] LABS: Glucose,Whole Blood 169 mg/dL (70-110)
[2023-01-15] MEDS ORDERED: NON FORMULARY DRUG (Vitamin B Complex [Vitamin B Complex] 1 EACH Capsule) PO SCH (21:00)
[2023-01-15] MEDS ORDERED: ATORVASTATIN 40 MG TAB PO SCH (21:00)
[2023-01-15] MEDS ORDERED: INSULIN DETEMIR (LEVEMIR) 100 UNIT/ML SYR SQ SCH (21:00)
[2023-01-15] MEDS ORDERED: MAGNESIUM OXIDE 400 MG TAB PO SCH (21:00)
[2023-01-16 05:21] LABS: HCT 36.2 % (39.0-53.0); HGB 12.4 gm/dL (13.0-17.5); MCH 30.7 pg (25.0-35.0); MCHC 34.4 g/dL (31.0-37.0); MCV 89.2 fL (80.0-100.0); Mean Platelet Volume 6.8; Platelet Count 199 k/uL (150-450); RBC 4.05 m/uL (4.30-5.90); RDW 13.2 % (11.5-15.5); WBC 5.7 k/uL (3.8-10.6)
[2023-01-16 05:30] LABS: African American GFR (CKD) >90 (>60 ml/min/1.73 sqM); Anion Gap 6 mmol/L; Blood Urea Nitrogen 12 mg/dL (9-20); Calcium 8.5 mg/dL (8.4-10.2); Carbon Dioxide 27 mmol/L (22-30); Chloride 100 mmol/L (98-107); Glucose 128 mg/dL (74-99); Non-African American GFR(CKD) >90 (>60 ml/min/1.73 sqM); Potassium 4.6 mmol/L (3.5-5.1); Sodium 133 mmol/L (137-145)
[2023-01-16 06:08] LABS: Glucose,Whole Blood 148 mg/dL (70-110)
[2023-01-16] MEDS: NITROGLYCERIN OINT 1 INCH/GM PACKET TOPICAL SCH ×2 (06:09→11:03)
[2023-01-16] MEDS: INSULIN ASPART (NovoLOG) 100 UNIT/ML VIAL SQ SCH ×3 (06:09→16:36)
[2023-01-16] MEDS ORDERED: ASPIRIN 81 MG PO SCH (09:00)
[2023-01-16] MEDS ORDERED: NON FORMULARY DRUG (Dulaglutide [Trulicity] 3 MG/0.5 ML Each) SQ SCH (09:00)
[2023-01-16] MEDS: METOPROLOL SUCCINATE (ER) 50 MG TAB.ER.24H PO SCH (09:01)
[2023-01-16] MEDS: HEPARIN SOD,PORK IN 0.45% NACL 25,000 UNIT in 0.45% NACL 1 250ML.BAG IV SCH (09:01)
[2023-01-16] MEDS: levETIRAcetam 500 MG TAB PO SCH (09:01)
[2023-01-16] MEDS: CLOPIDOGREL 75 MG TAB PO SCH (09:01)
[2023-01-16] MEDS ORDERED: ASPIRIN 81 MG PO STA (10:19)
[2023-01-16] MEDS ORDERED: ATORVASTATIN 80 MG TAB PO STA (10:19)
[2023-01-16] MEDS ORDERED: ALPRAZolam 0.5 MG TAB PO PRN (10:19)
[2023-01-16] MEDS ORDERED: ALPRAZolam 0.25 MG TAB PO PRN (10:19)
[2023-01-16] MEDS ORDERED: NITROGLYCERIN SL TABS 0.4 MG TAB SUBLINGUAL PRN (10:19)
[2023-01-16] MEDS ORDERED: VERAPAMIL 2.5 MG/ML 2 ML AMP ONE (10:52)
[2023-01-16 10:54] VITALS: PULSE 75; RESP 18
[2023-01-16] MEDS ORDERED: fentaNYL (PF) 50 MCG/ML 2 ML AMP ONE (10:55)
[2023-01-16] MEDS ORDERED: HEPARIN SODIUM 1,000 UN/ML (10ML VL) ONE (10:55)
[2023-01-16] MEDS ORDERED: IV FLUID CONTINUATION 1,000 ML IV ONE (11:07)
[2023-01-16] MEDS ORDERED: fentaNYL (PF) 50 MCG/1 ML VIAL IVP ONE (11:27)
[2023-01-16] MEDS ORDERED: LIDOCAINE 1% INJ 10MG/ML (5 ML VIAL-PF) SQ ONE ×2 (11:29→11:31)
[2023-01-16] MEDS ORDERED: VERAPAMIL SYRINGE (5 MG/10 ML) INTRAARTER ONE (11:38)
[2023-01-16] MEDS: MIDAZOLAM 2 MG/2 ML VIAL IVP ONE ×2 (11:38→11:42)
[2023-01-16] MEDS ORDERED: HEPARIN SODIUM 1,000 UN/ML (10ML VL) IV ONE (11:40)
[2023-01-16] MEDS ORDERED: IOPAMIDOL-370 100ML BTL INJ ONE (11:49)
[2023-01-16] MEDS ORDERED: RX INFO: IV CONTRAST WAS GIVEN 1 EACH MISC MISCELLANE PRN (11:57)
[2023-01-16] MEDS ORDERED: SODIUM CHLORIDE 0.9% 1,000 ML IV SCH (12:00)
--- NOTE | 2023-01-16 12:06 | P.CARDCATH ---
Date of Procedure: 01/16/23 Description of Procedure: Cardiac Catheterization: The patient is a 57-year-old male with known history of hypertension, hyperlipidemia and diabetes who presented with symptoms of chest discomfort. He has underwent stenting of the LAD and left circumflex in June by Dr. Mccain, the symptoms reminds of the way he felt at that time. Recommendations were made regarding cardiac catheterization, the risks and the complications were discussed with the patient who is in full understanding and agreement. 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 Using Xylocaine Anesthesia and Seldinger technique, a 6-Greenlandic sheath was introduced in the left radial artery . Subsequently, selective coronary angiography was performed using a 5-Greenlandic 4 bend Khalif catheter. Multiple views of the coronary artery including hemiaxial views were obtained. Following that, catheter and sheath were removed. Hemostasis was obtained with deployment of TR band . There was no immediate complication. Patient was returned to room in stable condition. Of note, the patient received a total of 5000 units of intravenous heparin as well as intra- arterial verapamil. Findings: Left main: This is a large size vessel, bifurcating into LAD and circumflex, left main has no high-grade stenosis LAD: This is a large size vessel, reaching to the apex, the stented segment is patent. The patient has mild stent with no high-grade stenosis. Left circumflex: This is a large nondominant vessel giving rise to a large branch. The stented segment is patent with no in-stent restenosis. RCA: This is a dominant vessel bifurcating into PDA and PLV, the mid RCA has 20% plaque, the rest of the vessel has no evidence of high-grade stenosis Left Ventriculogram: Not performed Conclusion: 1. Patent stent in the LAD 2. Patent stent in the left circumflex 3. Mild disease in the RCA Recommendations: I see no evidence of progression of disease. The patient will continue on his present medical regimen. He will follow-up as an outpatient with Dr. Mccain. The findings and the recommendations were discussed with the patient and the family and they were in full understanding and agreement. Duration of sedation is 20 minutes.
[2023-01-16 12:13] LABS: Glucose,Whole Blood 166 mg/dL (70-110)
[2023-01-16 13:43] VITALS: TEMP 97.9
--- NOTE | 2023-01-16 14:00 | P.DS ---
Providers Date of admission: 01/14/23 21:57 Attending physician: Edilson Walter MD Consults: 01/14/23 21:57 Consult Physician Urgent Consulting Provider: Obi Phelan Consult Reason/Comments: Unstable angina Do you want consulting provider notified?: Yes Primary care physician: Parish Rangel Hospital Course: Patient is admitted for chest pain. Patient underwent coronary catheterization which did not show any significant coronary occlusive disease that needs intervention. Patient is cleared by cardiology will be discharged later today. Patient is hyponatremic because of which I asked patient to take Lasix only on as-needed basis patient was also hypotensive because of which I'm cutting down the dose of lisinopril to 5 mg from 10 mg PHYSICAL EXAMINATION: GENERAL: The patient is alert and oriented x3, not in any acute distress. Obese HEENT: Pupils are round and equally reacting to light. EOMI. No scleral icterus. No conjunctival pallor. Normocephalic, atraumatic. No pharyngeal erythema. No thyromegaly. CARDIOVASCULAR: S1 and S2 present. No murmurs, rubs, or gallops. PULMONARY: Chest is clear to auscultation, no wheezing or crackles. ABDOMEN: Soft, nontender, nondistended, normoactive bowel sounds. No palpable organomegaly. MUSCULOSKELETAL: No joint swelling or deformity. EXTREMITIES: No cyanosis, clubbing, or pedal edema. NEUROLOGICAL: Gross neurological examination did not reveal any focal deficits. SKIN: No rashes. Assessment and plan -Chest pain status post cardiac catheterization -Hyponatremia secondary to Lasix -Hypertension patient is hypotensive , cutting down dose of lisinopril Moderate persistent asthma without any acute exacerbation -obesity -Seizure disorder -Hyperlipidemia Hypertension coronary disease with stent placement -Type 2 diabetes mellitus will resume his home regimen along with sliding scale insulin -Ruled out pulmonary embolism: D-dimer is negative DVT prophylaxis: Patient on IV heparin at this time Patient Condition at Discharge: Stable Plan - Discharge Summary Discharge Rx Participant: No New Discharge Prescriptions: New Nitroglycerin Sl Tabs [Nitrostat] 0.4 mg SUBLINGUAL Q5M PRN #30 tab PRN Reason: Chest Pain lisinopriL [Zestril] 5 mg PO DAILY #30 tab Continue Aspirin 81 mg PO HS Albuterol Inhaler [Ventolin Hfa Inhaler] 1 puff INHALATION RT-Q4H PRN PRN Reason: Shortness Of Breath Insulin Glargine,Hum.rec.anlog [Basaglar Kwikpen U-100] 20 unit SQ PC-SUPPER Atorvastatin [Lipitor] 40 mg PO HS Clopidogrel [Plavix] 75 mg PO DAILY #90 tablet Dulaglutide [Trulicity] 3 mg SQ OLIVAREZ Magnesium Oxide 400 mg PO HS levETIRAcetam 500 mg PO BID Vitamin B Complex 1 cap PO HS Metoprolol Succinate (ER) [Toprol XL] 50 mg PO DAILY metFORMIN HCL [Glucophage] 1,000 mg PO DAILY Changed Furosemide [Lasix] 20 mg PO BID PRN #0 PRN Reason: Edema Discontinued lisinopriL [Zestril] 10 mg PO DAILY Discharge Medication List Albuterol Inhaler [Ventolin Hfa Inhaler] 1 puff INHALATION RT-Q4H PRN 02/04/15 [History] Aspirin 81 mg PO HS 02/04/15 [History] Atorvastatin [Lipitor] 40 mg PO HS 03/24/22 [History] Dulaglutide [Trulicity] 3 mg SQ OLIVAREZ 03/24/22 [History] Insulin Glargine,Hum.rec.anlog [Basaglar Kwikpen U-100] 20 unit SQ PC-SUPPER 03/24/22 [History] Magnesium Oxide 400 mg PO HS 03/24/22 [History] Vitamin B Complex 1 cap PO HS 03/24/22 [History] levETIRAcetam 500 mg PO BID 03/24/22 [History] Clopidogrel [Plavix] 75 mg PO DAILY #90 tablet 05/20/22 [Rx] Metoprolol Succinate (ER) [Toprol XL] 50 mg PO DAILY 06/29/22 [History] metFORMIN HCL [Glucophage] 1,000 mg PO DAILY 01/14/23 [History] Furosemide [Lasix] 20 mg PO BID PRN #0 01/16/23 [Rx] Nitroglycerin Sl Tabs [Nitrostat] 0.4 mg SUBLINGUAL Q5M PRN #30 tab 01/16/23 [Rx] lisinopriL [Zestril] 5 mg PO DAILY #30 tab 01/16/23 [Rx] Follow up Appointment(s)/Referral(s): Parish Rangel MD [Primary Care Provider] - 3 Days (office closed, pt. to make own grady) Abe Mccain MD [STAFF PHYSICIAN] - 1 Week (office closed, pt. to make own grady) Patient Instructions/Handouts: Chest Pain (GEN), Heart Catheterization (DC) Discharge Disposition: HOME SELF-CARE
[2023-01-16 14:09] LABS: Chol/HDL Ratio 4.26 Ratio; LDL Cholesterol,Calculated 38.2 mg/dL
[2023-01-16 16:24] VITALS: BP 100/67
[2023-01-16 16:27] LABS: Glucose,Whole Blood 162 mg/dL (70-110)
[2023-01-17] MEDS ORDERED: HEPARIN SODIUM,PORCINE 2,500 UNIT in SODIUM CHLORIDE 0.9% 250 ML IRRIGATION PRN (07:00)
[2023-01-17] MEDS ORDERED: HEPARIN SODIUM,PORCINE 10,000 UNIT in SODIUM CHLORIDE 0.9% 1,000 ML IRRIGATION PRN (07:00)
[2023-01-17] MEDS ORDERED: ATORVASTATIN 40 MG TAB PO SCH (21:00)
== END 2023-01-16 17:22 | disposition home or self-care (01) | DRG 287 ==
LOC: EC 17:17 → 3SCARD 21:57
PROVIDERS: ADMIT Internal Medicine; ATTEND Internal Medicine
PROC: B2011ZZ Plain Radiography of Multiple Coronary Arteries using Low Osmolar Contrast (ICD-10-PCS; principal; 2023-01-16 10:20)
PROC: 4A023N7 Measurement of Cardiac Sampling and Pressure, Left Heart, Percutaneous Approach (ICD-10-PCS; principal; 2023-01-16 10:20)
DX: I25.110 Atherosclerotic heart disease of native coronary artery with unstable angina pectoris (principal); E87.1 Hypo-osmolality and hyponatremia; Z68.42 Body mass index [BMI] 45.0-49.9, adult; I95.9 Hypotension, unspecified; E11.9 Type 2 diabetes mellitus without complications; G40.909 Epilepsy, unspecified, not intractable, without status epilepticus; Z79.4 Long term (current) use of insulin; Z28.310 Unvaccinated for COVID-19; I10 Essential (primary) hypertension; E66.9 Obesity, unspecified; T50.1X5A Adverse effect of loop [high-ceiling] diuretics, initial encounter; J45.40 Moderate persistent asthma, uncomplicated; E78.00 Pure hypercholesterolemia, unspecified; T22.0 Burn of unspecified degree of shoulder and upper limb, except wrist and hand; T24.001S Burn of unspecified degree of unspecified site of right lower limb, except ankle and foot, sequela; Z79.82 Long term (current) use of aspirin; Z79.02 Long term (current) use of antithrombotics/antiplatelets; Z79.85 Long-term (current) use of injectable non-insulin antidiabetic drugs; Z79.84 Long term (current) use of oral hypoglycemic drugs; Z79.899 Other long term (current) drug therapy; Z95.5 Presence of coronary angioplasty implant and graft; Z96.81 Presence of artificial skin; Z87.891 Personal history of nicotine dependence; Z91.018 Allergy to other foods; Z82.49 Family history of ischemic heart disease and other diseases of the circulatory system
CPT/HCPCS: 36415; 71046; 80048; 80053; 80061; 83690; 83735; 83880; 84484; 85025; 85027; 85379; 85610; 85730; 93005; 93306; 93458; 94760; 96365; 96366; 99291

== ENCOUNTER 2023-12-21 15:23 | Observation (INO) | payer BC ==
[2023-12-21 16:08] LABS: Basophils % (A) 1 %; Eosinophils # (A) 0.3 k/uL (0-0.7); Eosinophils % (A) 4 %; HCT 39.7 % (39.0-53.0); HGB 13.4 gm/dL (13.0-17.5); Lymphocytes # (A) 1.7 k/uL (1.0-4.8); Lymphocytes % (A) 24 %; MCH 29.5 pg (25.0-35.0); MCHC 33.7 g/dL (31.0-37.0); MCV 87.6 fL (80.0-100.0); Mean Platelet Volume 6.9; Monocytes # (A) 0.3 k/uL (0-1.0); Monocytes % (A) 5 %; Neutrophils # (A) 4.7 k/uL (1.3-7.7); Neutrophils % (A) 65 %; Platelet Count 274 k/uL (150-450); RBC 4.53 m/uL (4.30-5.90); RDW 13.7 % (11.5-15.5); WBC 7.2 k/uL (3.8-10.6)
--- NOTE | 2023-12-21 16:08 | ED ---
General Adult HPI - General Chief complaint: Chest Pain Stated complaint: Chest pressure-sent by PCP Time Seen by Provider: 12/21/23 16:06 Source: patient, RN notes reviewed, old records reviewed Mode of arrival: ambulatory Limitations: no limitations - History of Present Illness Initial comments: 58-year-old male presenting for evaluation of chest pain. Patient's symptoms have been present for the past several weeks, central chest pressure with dysp ivone which is relieved by rest. Patient was sent from primary care provider with this complaint for evaluation. Patient has history of diabetes and known CAD with multiple stents. He denies current chest pain. Denies vomiting. He reports a mild cough which is nonproductive. No fever. - Related Data Home Medications Medication Instructions Recorded Confirmed Albuterol Inhaler [Ventolin Hfa 2 puff INHALATION RT-Q4H PRN 02/04/15 12/21/23 Inhaler] Aspirin 81 mg PO HS 02/04/15 12/21/23 Dulaglutide [Trulicity] 3 mg SQ OLIVAREZ 03/24/22 12/21/23 Magnesium Oxide 400 mg PO HS 03/24/22 12/21/23 Vitamin B Complex 1 cap PO HS 03/24/22 12/21/23 levETIRAcetam 500 mg PO BID 03/24/22 12/21/23 Metoprolol Succinate (ER) [Toprol 50 mg PO DAILY 06/29/22 12/21/23 XL] metFORMIN HCL [Glucophage] 1,000 mg PO DAILY 01/14/23 12/21/23 Atorvastatin [Lipitor] 80 mg PO HS 12/21/23 12/21/23 Insulin Glargine,Hum.rec.anlog 20 units SQ HS 12/21/23 12/21/23 [Lantus Solostar Pen] Irbesartan [Avapro] 75 mg PO DAILY 12/21/23 12/21/23 Previous Rx's Medication Instructions Recorded Nitroglycerin Sl Tabs [Nitrostat] 0.4 mg SUBLINGUAL Q5M PRN #30 tab 01/16/23 Allergies Allergy/AdvReac Type Severity Reaction Status Date / Time tree nut Allergy Anaphylaxis Verified 12/21/23 17:28 Review of Systems ROS Statement: Those systems with pertinent positive or pertinent negative responses have been documented in the HPI. ROS Other: All systems not noted in ROS Statement are negative. Past Medical History Past Medical History: Asthma, Diabetes Mellitus, Hyperlipidemia, Hypertension, Seizure Disorder Additional Past Medical History / Comment(s): June was the latest seizure. WAS 1 YEAR AGO History of Any Multi-Drug Resistant Organisms: None Reported Past Surgical History: Heart Catheterization With Stent, Orthopedic Surgery Additional Past Surgical History / Comment(s): RIGHT WRIST SURGERY, LEFT ARM & SHOULDER PRITCHARD/SKIN GRAFTING, RT LEG PRITCHARD/SKIN GRAFT, LT KNEE SCOPE, 27 stitches in the tip of the left index finger. COLONOSCOPY/EGD Past Anesthesia/Blood Transfusion Reactions: No Reported Reaction Date of Last Stent Placement:: 05/20/22 Past Psychological History: No Psychological Hx Reported Smoking Status: Former smoker Past Alcohol Use History: Rare Past Drug Use History: Marijuana - Past Family History Father Family Medical History: CVA/TIA, Myocardial Infarction ([place]) Additional Family Medical History / Comment(s): Father is 82 yrs old. Mother Family Medical History: No Reported History General Exam Limitations: no limitations General appearance: alert, in no apparent distress Head exam: Present: atraumatic, normocephalic Eye exam: Present: normal appearance, PERRL ENT exam: Present: normal exam Neck exam: Present: normal inspection Respiratory exam: Present: normal lung sounds bilaterally. Absent: respiratory distress, wheezes Cardiovascular Exam: Present: regular rate, normal rhythm GI/Abdominal exam: Present: soft. Absent: distended, tenderness Extremities exam: Present: normal inspection, normal capillary refill Neurological exam: Present: alert, oriented X3 Psychiatric exam: Present: normal affect, normal mood Skin exam: Present: warm, dry, intact Course Vital Signs 12/21/23 12/21/23 15:24 17:54 Temperature 98.3 F Pulse Rate 75 70 Respiratory 22 18 Rate Blood Pressure 141/86 120/77 O2 Sat by Pulse 98 Oximetry Medical Decision Making - Medical Decision Making Was pt. sent in by a medical professional or institution (, PA, FILENET ARCHITECT, urgent care, hospital, or assisted...) When possible be specific @ -Sent by primary care provider Dr. Rangel Did you speak to anyone other than the patient for history (EMS, parent, family, police, friend...)? What history was obtained from this source @ -No Did you review nursing and triage notes (agree or disagree)? Why? @ -I reviewed and agree with nursing and triage notes Were old charts reviewed (outside hosp., previous admission, EMS record, old E KG, old radiological studies, urgent care reports/EKG's, assisted records)? Report findings @ -No old charts were reviewed Differential Chest Pain: Stable Angina, Unstable Angina, STEMI, NSTEMI Aortic Dissection, Pneumothorax, Musculoskeletal, Esophageal Spasm GERD, Cholecystitis, Pancreatitis, Zoster, this is not meant to be an all-inclusive list. EKG interpreted by me (3pts min.). @ -[Sinus rhythm low voltage rate of 75, CA interval 159, QRS duration 99, QTc [address] segment elevation. X-rays interpreted by me (1pt min.). @ -Chest x-ray negative for acute cardiopulmonary disease CT interpreted by me (1pt min.). @ -None done U/S interpreted by me (1pt. min.). @ -None done What testing was considered but not performed or refused? (CT, X-rays, U/S, labs)? Why? @ -None What meds were considered but not given or refused? Why? @ -None Did you discuss the management of the patient with other professionals (professionals i.e. , PA, FILENET ARCHITECT, lab, RT, psych nurse, social and human services assistant, insurance salesman, teacher, correctional officer, case liner)? Give summary @[facility] Was smoking cessation discussed for >3mins.? @ -No Was critical care preformed (if so, how long)? @ -No Were there social determinants of health that impacted care today? How? (Homelessness, low income, unemployed, alcoholism, drug addiction, transportation, low edu. Level, literacy, decrease access to med. care, alf, rehab)? @ -No Was there de-escalation of care discussed even if they declined (Discuss DNR or withdrawal of care, Hospice)? DNR status @ -No What co-morbidities impacted this encounter? (DM, HTN, Smoking, COPD, CAD, Cancer, CVA, ARF, Chemo, Hep., AIDS, mental health diagnosis, sleep apnea, morbid obesity)? @ -Hypertension diabetes, coronary artery disease Was patient admitted / discharged? Hospital course, mention meds given and route, prescriptions, significant lab abnormalities, going to OR and other p ertinent info. @58-year-old male with substernal chest pressure and dyspnea with exertion. EKG sinus rhythm without ST segment changes. Chest x-ray is clear. Normal CBC, normal CMP, negative initial troponin. Patient will be observed for serial cardiac enzymes, telemetry, echocardiogram and cardiology consultation. Undiagnosed new problem with uncertain prognosis? @ -No Drug Therapy requiring intensive monitoring for toxicity (Heparin, Nitro, Insulin, Cardizem)? @ -No Were any procedures done? @ -No Diagnosis/symptom? @ -Chest pain rule out Acute, or Chronic, or Acute on Chronic? @Acute Uncomplicated (without systemic symptoms) or Complicated (systemic symptoms)? @ -Default Side effects of treatment? @ -No Exacerbation, Progression, or Severe Exacerbation? @ -No Poses a threat to life or bodily function? How? (Chest pain, [place], [place], pneumonia, PE, COPD, DKA, ARF, appy, cholecystitis, CVA, Diverticulitis, Homicidal, Suicidal, threat to staff... and all critical care pts) @Yes, ACS - Lab Data Result diagrams: 12/21/23 15:58 12/21/23 15:58 Lab Results 12/21/23 12/21/23 12/21/23 Range/Units 15:58 15:58 15:58 WBC 7.2 (3.8-10.6) k/uL RBC 4.53 (4.30-5.90) m/uL Hgb 13.4 (13.0-17.5) gm/dL Hct 39.7 (39.0-53.0) % MCV 87.6 (80.0-100.0) fL MCH 29.5 (25.0-35.0) pg MCHC 33.7 (31.0-37.0) g/dL RDW 13.7 (11.5-15.5) % Plt Count 274 (150-450) k/uL MPV 6.9 Neutrophils % 65 % Lymphocytes % 24 % Monocytes % 5 % Eosinophils % 4 % Basophils % 1 % Neutrophils # 4.7 (1.3-7.7) k/uL Lymphocytes # 1.7 (1.0-4.8) k/uL Monocytes # 0.3 (0-1.0) k/uL Eosinophils # 0.3 (0-0.7) k/uL Basophils # 0.0 (0-0.2) k/uL PT 10.3 (10.0-12.5) sec INR 0.9 (<1.2) APTT 24.1 (22.0-30.0) sec Sodium 138 (137-145) mmol/L Potassium 4.3 (3.5-5.1) mmol/L Chloride 107 (98-107) mmol/L Carbon Dioxide 22 (22-30) mmol/L Anion Gap 9 mmol/L BUN 10 (9-20) mg/dL Creatinine 0.48 L (0.66-1.25) mg/dL Est GFR (CKD-EPI)AfAm >90 (>60 ml/min/1.73 sqM) Est GFR (CKD-EPI)NonAf >90 (>60 ml/min/1.73 sqM) Glucose 131 H (74-99) mg/dL Calcium 8.8 (8.4-10.2) mg/dL Magnesium 1.8 (1.6-2.3) mg/dL Total Bilirubin 0.6 (0.2-1.3) mg/dL AST 27 (17-59) U/L ALT 31 (4-49) U/L Alkaline Phosphatase 60 (38-126) U/L Troponin I (0.000-0.034) ng/mL Total Protein 6.3 (6.3-8.2) g/dL Albumin 3.7 (3.5-5.0) g/dL 12/21/23 Range/Units 15:58 WBC (3.8-10.6) k/uL RBC (4.30-5.90) m/uL Hgb (13.0-17.5) gm/dL Hct (39.0-53.0) % MCV (80.0-100.0) fL MCH (25.0-35.0) pg MCHC (31.0-37.0) g/dL RDW (11.5-15.5) % Plt Count (150-450) k/uL MPV Neutrophils % % Lymphocytes % % Monocytes % % Eosinophils % % Basophils % % Neutrophils # (1.3-7.7) k/uL Lymphocytes # (1.0-4.8) k/uL Monocytes # (0-1.0) k/uL Eosinophils # (0-0.7) k/uL Basophils # (0-0.2) k/uL PT (10.0-12.5) sec INR (<1.2) APTT (22.0-30.0) sec Sodium (137-145) mmol/L Potassium (3.5-5.1) mmol/L Chloride (98-107) mmol/L Carbon Dioxide (22-30) mmol/L Anion Gap mmol/L BUN (9-20) mg/dL Creatinine (0.66-1.25) mg/dL Est GFR (CKD-EPI)AfAm (>60 ml/min/1.73 sqM) Est GFR (CKD-EPI)NonAf (>60 ml/min/1.73 sqM) Glucose (74-99) mg/dL Calcium (8.4-10.2) mg/dL Magnesium (1.6-2.3) mg/dL Total Bilirubin (0.2-1.3) mg/dL AST (17-59) U/L ALT (4-49) U/L Alkaline Phosphatase (38-126) U/L Troponin I <0.012 (0.000-0.034) ng/mL Total Protein (6.3-8.2) g/dL Albumin (3.5-5.0) g/dL Disposition Clinical Impression: Chest pain Disposition: ADMITTED IP TO THIS HOSP Condition: Stable Is patient prescribed a controlled substance at d/c from ED?: No Referrals: Parish Rangel MD [Primary Care Provider] - 1-2 days Time of Disposition: 17:58
[2023-12-21 16:16] LABS: INR 0.9 (<1.2); Partial Thromboplastin Time 24.1 sec (22.0-30.0); Prothrombin Time 10.3 sec (10.0-12.5)
[2023-12-21 16:44] LABS: ALT 31 U/L (4-49); AST 27 U/L (17-59); African American GFR (CKD) >90 (>60 ml/min/1.73 sqM); Albumin 3.7 g/dL (3.5-5.0); Alkaline Phosphatase 60 U/L (38-126); Anion Gap 9 mmol/L; Blood Urea Nitrogen 10 mg/dL (9-20); Calcium 8.8 mg/dL (8.4-10.2); Carbon Dioxide 22 mmol/L (22-30); Chloride 107 mmol/L (98-107); Glucose 131 mg/dL (74-99); Magnesium 1.8 mg/dL (1.6-2.3); Non-African American GFR(CKD) >90 (>60 ml/min/1.73 sqM); Potassium 4.3 mmol/L (3.5-5.1); Sodium 138 mmol/L (137-145); Total Bilirubin 0.6 mg/dL (0.2-1.3); Total Protein 6.3 g/dL (6.3-8.2)
[2023-12-21] MEDS: ASPIRIN 325 MG TAB PO STA (17:13)
--- NOTE | 2023-12-21 17:26 | XR ---
EXAMINATION TYPE: XR chest 2V DATE OF EXAM: 12/21/2023 5:23 PM CLINICAL INDICATION:Male, 58 years old with history of Chest Pain; [facility] COMPARISON: Chest radiographs from 01/14/2023. TECHNIQUE: XR chest 2V Frontal and lateral views of the chest. FINDINGS: Lungs/Pleura: There is no evidence of pleural effusion, focal consolidation, or pneumothorax. Pulmonary vascularity: Unremarkable. Heart/mediastinum: Cardiomediastinal silhouette is unremarkable. Musculoskeletal: No acute osseous pathology. IMPRESSION: No acute cardiopulmonary disease/process.
[2023-12-21] MEDS ORDERED: NALOXONE 0.4 MG/ML 1 ML VIAL IV PRN (17:55)
[2023-12-21] MEDS ORDERED: ACETAMINOPHEN TAB 325 MG TAB PO PRN (17:55)
[2023-12-21] MEDS ORDERED: ONDANSETRON 4 MG/2 ML VIAL IVP PRN (17:55)
[2023-12-21] MEDS ORDERED: NITROGLYCERIN SL TABS 0.4 MG TAB SUBLINGUAL PRN (23:05)
[2023-12-22] MEDS: ATORVASTATIN 80 MG TAB PO SCH (00:03)
[2023-12-22] MEDS: levETIRAcetam 500 MG TAB PO SCH (00:03)
[2023-12-22] MEDS ORDERED: HEPARIN SODIUM,PORCINE (1 ML) 2,500 UNIT in SODIUM CHLORIDE 0.9% 250 ML IRRIGATION PRN (07:00)
[2023-12-22] MEDS ORDERED: HEPARIN SODIUM,PORCINE 10,000 UNIT in SODIUM CHLORIDE 0.9% 1,000 ML IRRIGATION PRN (07:00)
[2023-12-22] MEDS: METOPROLOL SUCCINATE (ER) 50 MG TAB.ER.24H PO SCH (09:06)
[2023-12-22] MEDS: LOSARTAN 25 MG TAB PO SCH (09:06)
[2023-12-22] MEDS: ASPIRIN 81 MG PO SCH (09:06)
[2023-12-22] MEDS ORDERED: NITROGLYCERIN SL TABS 0.4 MG TAB SUBLINGUAL PRN ×2 (09:15→13:37)
[2023-12-22] MEDS ORDERED: ALPRAZolam 0.5 MG TAB PO PRN ×2 (09:15→13:37)
[2023-12-22] MEDS ORDERED: ALPRAZolam 0.25 MG TAB PO PRN ×2 (09:15→13:37)
--- NOTE | 2023-12-22 10:22 | P.CRDCN ---
History of Present Illness History of present illness: HISTORY OF PRESENT ILLNESS: This is a 58-year-old male with a past medical history significant for coronary artery disease with previous stenting of the circumflex and LAD, hypertension, hyperlipidemia, diabetes, and morbid obesity. Patient follows in the office with Dr. Mccain. We have been asked to see the patient in consultation for chest pain. Patient examined at the bedside. Patient presented to the hospital for chief complaint of chest discomfort. Patient states he has been having chest pain on and off for the past week. He states the pain starts in the middle of his chest and radiates into his back. He denies having any chest pain at rest. He states the pain only occurs with exertion and the pain will persist until he lays down and rest. He also reports having mild dizziness. He states that his symptoms feel similar to when he required stenting in the past. DIAGNOSTICS: - EKG reveals sinus mechanism with no signs of acute ischemia. - Chest xray negative for acute process. - Laboratory data: WBC 7.2. Hemoglobin 13.4. Platelet count 274. Sodium 138. Potassium 4.3. BUN 10. Creatinine 0.48. Troponin negative x 3. - Current home cardiac medications include irbesartan 75 mg daily, metoprolol succinate 50 mg daily, aspirin 81 mg daily, Lipitor 80 mg at night. - Most recent echocardiogram obtained in January 2023 revealed ejection fraction 50 to 55%, mild TR - Cardiac catheterization history: January 2023 revealing patent stent in the LAD and patent stent in the left circumflex and mild disease in the RCA REVIEW OF SYSTEMS: At the time of my exam: CONSTITUTIONAL: Denies fever or chills. HEENT: Denies blurred vision, vision changes, or eye pain. Denies hemoptysis CARDIOVASCULAR: Denies chest pain. Denies orthopnea. Denies PND. Denies palpitations RESPIRATORY: Denies shortness of breath. GASTROINTESTINAL: Denies abdominal pain. Denies nausea or vomiting. HEMATOLOGIC: Denies bleeding disorders. GENITOURINARY: Denies any blood in urine. SKIN: Denies pruitis. Denies rash. PHYSICAL EXAM: VITAL SIGNS: Reviewed. GENERAL: Well-developed in no acute distress. HEENT: Head is normocephalic. Pupils are equal, round. Sclerae anicteric. Mucous membranes of the mouth are moist. Neck supple. No JVD or thyromegaly LUNGS: Respirations even and unlabored. Lungs essentially clear to auscultation bilaterally. HEART: Regular rate and rhythm. S1 and S2 heard. ABDOMEN: Soft. Nondistended. Nontender. EXTREMITIES: Normal range of motion. No clubbing or cyanosis. Peripheral pulses intact. No lower extremity edema NEUROLOGIC: Awake and alert. Oriented x 3. ASSESSMENT: Chest pain, concerning for unstable angina Coronary artery disease with previous stenting of the circumflex and LAD Hypertension Hyperlipidemia Diabetes Morbid obesity: BMI 46.3 PLAN: Obtain 2D echo to assess cardiac structure and function Resume home cardiac medications Patient to undergo cardiac catheterization today with Dr. Mccain Further recommendations pending patient course Nurse practitioner note has been reviewed by physician. Signing provider agrees with the documented findings, assessment, and plan of care documented by [employer] as a scribe. Past Medical History Past Medical History: Asthma, Diabetes Mellitus, Hyperlipidemia, Hypertension, Seizure Disorder Additional Past Medical History / Comment(s): June was the latest seizure. WAS 1 YEAR AGO History of Any Multi-Drug Resistant Organisms: None Reported Past Surgical History: Heart Catheterization With Stent, Orthopedic Surgery Additional Past Surgical History / Comment(s): RIGHT WRIST SURGERY, LEFT ARM & SHOULDER PRITCHARD/SKIN GRAFTING, RT LEG PRITCHARD/SKIN GRAFT, LT KNEE SCOPE, 27 stitches in the tip of the left index finger. COLONOSCOPY/EGD Past Anesthesia/Blood Transfusion Reactions: No Reported Reaction Date of Last Stent Placement:: 05/20/22 Past Psychological History: No Psychological Hx Reported Additional Psychological History / Comment(s): Pt resides with his spouse. He is independent. Smoking Status: Former smoker Past Alcohol Use History: Rare Additional Past Alcohol Use History / Comment(s): Pt started smoking in 1985 and quit in 2008 Past Drug Use History: Marijuana Additional Drug Use History / Comment(s): WEEKLY USE, INSTRUCTED TO ABSTAIN 24 HRS PRIOR TO PROCEDURE - Past Family History Father Family Medical History: CVA/TIA, Myocardial Infarction ([place]) Additional Family Medical History / Comment(s): Father is 82 yrs old. Mother Family Medical History: No Reported History Medications and Allergies Home Medications Medication Instructions Recorded Confirmed Type Albuterol Inhaler [Ventolin Hfa 2 puff INHALATION RT-Q4H PRN 02/04/15 12/21/23 History Inhaler] Aspirin 81 mg PO HS 02/04/15 12/21/23 History Dulaglutide [Trulicity] 3 mg SQ YANEZ 03/24/22 12/21/23 History Magnesium Oxide 400 mg PO HS 03/24/22 12/21/23 History Vitamin B Complex 1 cap PO HS 03/24/22 12/21/23 History levETIRAcetam 500 mg PO BID 03/24/22 12/21/23 History Metoprolol Succinate (ER) [Toprol 50 mg PO DAILY 06/29/22 12/21/23 History XL] metFORMIN HCL [Glucophage] 1,000 mg PO DAILY 01/14/23 12/21/23 History Nitroglycerin Sl Tabs [Nitrostat] 0.4 mg SUBLINGUAL Q5M PRN #30 tab 01/16/23 12/21/23 Rx Atorvastatin [Lipitor] 80 mg PO HS 12/21/23 12/21/23 History Insulin Glargine,Hum.rec.anlog 20 units SQ HS 12/21/23 12/21/23 History [Lantus Solostar Pen] Irbesartan [Avapro] 75 mg PO DAILY 12/21/23 12/21/23 History Allergies Allergy/AdvReac Type Severity Reaction Status Date / Time tree nut Allergy Anaphylaxis Verified 12/21/23 17:28 Physical Exam Vitals: Vital Signs Temp Pulse Pulse Resp BP BP Pulse Ox 12/22/23 07:00 97.7 F 66 16 127/82 98 12/22/23 02:00 97.5 F L 63 16 117/72 98 12/21/23 22:30 73 12/21/23 21:21 97.8 F 80 16 130/83 96 12/21/23 20:00 97.4 F L 73 16 145/87 98 12/21/23 17:54 70 18 120/77 12/21/23 15:24 98.3 F 75 22 141/86 98 Intake and Output 12/21/23 12/22/23 12/22/23 22:59 06:59 14:59 Other: # Voids 1 Weight 146.51 kg Results 12/21/23 15:58 12/21/23 15:58 Cardiac Enzymes 12/21/23 12/21/23 12/21/23 Range/Units 15:58 15:58 19:13 AST 27 (17-59) U/L Troponin I <0.012 <0.012 (0.000-0.034) ng/mL 12/21/23 Range/Units 21:18 AST (17-59) U/L Troponin I <0.012 (0.000-0.034) ng/mL Coagulation 12/21/23 Range/Units 15:58 PT 10.3 (10.0-12.5) sec APTT 24.1 (22.0-30.0) sec CBC 12/21/23 Range/Units 15:58 WBC 7.2 (3.8-10.6) k/uL RBC 4.53 (4.30-5.90) m/uL Hgb 13.4 (13.0-17.5) gm/dL Hct 39.7 (39.0-53.0) % Plt Count 274 (150-450) k/uL Comprehensive Metabolic Panel 12/21/23 Range/Units 15:58 Sodium 138 (137-145) mmol/L Potassium 4.3 (3.5-5.1) mmol/L Chloride 107 (98-107) mmol/L Carbon Dioxide 22 (22-30) mmol/L BUN 10 (9-20) mg/dL Creatinine 0.48 L (0.66-1.25) mg/dL Glucose 131 H (74-99) mg/dL Calcium 8.8 (8.4-10.2) mg/dL AST 27 (17-59) U/L ALT 31 (4-49) U/L Alkaline Phosphatase 60 (38-126) U/L Total Protein 6.3 (6.3-8.2) g/dL Albumin 3.7 (3.5-5.0) g/dL Current Medications Generic Name Dose Route Start Last Admin Trade Name Freq PRN Reason Stop Dose Admin Acetaminophen 650 mg 12/21/23 17:55 Acetaminophen Tab 325 Mg Tab PO Q6HR PRN Mild Pain or Fever > 100.5 Albuterol Sulfate 2.5 mg 12/21/23 23:05 Albuterol Nebulized 2.5 Mg/3 Ml INHALATION RT-Q4H PRN Shortness Of Breath Atorvastatin Calcium 80 mg 12/21/23 23:15 12/22/23 00:03 Atorvastatin 80 Mg Tab PO 80 mg HS DERRELL Administration Levetiracetam 500 mg 12/21/23 23:15 12/22/23 00:03 Levetiracetam 500 Mg Tab PO 500 mg BID [facility] Administration Losartan Potassium 25 mg 12/22/23 09:00 Losartan 25 Mg Tab PO DAILY [facility] Magnesium Oxide 400 mg 12/22/23 21:00 Magnesium Oxide 400 Mg Tab PO HS [facility] Metoprolol Succinate 50 mg 12/22/23 09:00 Metoprolol Succinate (Er) 50 Mg Tab.Er.24h PO DAILY [facility] Multivit/Ca Carb/B Cmplx/FA/Prenat 1 each 12/22/23 21:00 Folic Acid-Vit B Complex-Vit C 1 Cap PO HS [facility] Naloxone HCl 0.2 mg 12/21/23 17:55 Naloxone 0.4 Mg/Ml 1 Ml Vial IV Q2M PRN Opioid Reversal Nitroglycerin 0.4 mg 12/21/23 23:05 Nitroglycerin Sl Tabs 0.4 Mg Tab SUBLINGUAL Q5M PRN Chest Pain Non-Formulary Medication 3 mg 12/25/23 09:00 Dulaglutide [Trulicity] SQ Yanez@0900 [facility] Ondansetron HCl 4 mg 12/21/23 17:55 Ondansetron 4 Mg/2 Ml Vial IVP Q8HR PRN Nausea And Vomiting Intake and Output 12/21/23 12/22/23 12/22/23 22:59 06:59 14:59 Other: # Voids 1 Weight 146.51 kg 12/21/23 15:58 12/21/23 15:58
[2023-12-22 10:34] LABS: Glucose,Whole Blood 200 mg/dL (70-110)
--- NOTE | 2023-12-22 11:50 | CA ---
Transthoracic Echo Report Name: Joe Harrell Age: 58 Gender: M : 1965 Exam Date: 12/22/2023 08:13 Exam Location: [facility] Ht (in): 70 Wt (lb): 323 Ordering Physician: Jalen Spaulding MD Attending/Referring Phys: [id number], Chelly Cardiologist Charleen Rivera RDCS Procedure CPT: Indications: CP Cardiac Hx: Technical Quality: Very technically difficult study Contrast 1: Definity Total Dose (mL): 2 Contrast 2: Total Dose (mL): MEASUREMENTS (Male / Female) Normal Values 2D ECHO LVOT Diameter 2.3 cm DOPPLER AV Peak Velocity 141.3 cm/s AV Peak Gradient 8.0 mmHg AV Mean Velocity 102.7 cm/s AV Mean Gradient 4.5 mmHg AV Velocity Time Integral 27.9 cm LVOT Peak Velocity 103.1 cm/s LVOT Peak Gradient 4.3 mmHg LVOT Velocity Time Integral 21.4 cm LVOT Stroke Volume 87.0 cm??? LVOT Stroke Volume Index 34.0 ml/m??? LVOT Cardiac Index 2423.4 cm???/min???m??? AV Area Cont Eq vti 3.1 cm??? AV Area Cont Eq pk 3.0 cm??? MV Area PHT 4.2 cm??? Mitral E Point Velocity 69.7 cm/s Mitral A Point Velocity 74.2 cm/s Mitral E to A Ratio 0.9 MV Deceleration Time 180.8 ms FINDINGS Left Ventricle Left ventricular ejection fraction is estimated at 55-60 %. Unable to assess for regional wall motion abnormalities. Right Ventricle Right ventricle not well visualized. Right Atrium Right atrium not well visualized. Left Atrium Left atrium not well visualized. Mitral Valve Mitral valve not well visualized. No mitral stenosis, regurgitation or prolapse. Aortic Valve Aortic valve not well visualized. No aortic valve stenosis or regurgitation. Tricuspid Valve Tricuspid valve not well visualized. No tricuspid stenosis, regurgitation or prolapse. Pulmonic Valve Pulmonic valve not well visualized. Pericardium No pericardial effusion. Aorta Aortic root and proximal ascending aorta not well visualized. CONCLUSIONS Extremely difficult study for interpretation Normal LV systolic function We visualized right ventricle Poorly visualized intracardiac valves Previewed by: Dr. Abe Mccain MD (Electronically Signed) Final Date: 22 Dec 2023 11:49
--- NOTE | 2023-12-22 11:57 | P.HPIM ---
History of Present Illness H&P Date: 12/22/23 Chief Complaint: Chest pain Patient is a 58-year-old male with a past medical history of hypertension, hyperlipidemia, diabetes type 2 insulin-dependent and also on Trulicity, seizure disorder, coronary artery with history of stent placement, prior history of smoking and marijuana use lately presents to ER with complaints of chest discomfort. Patient states that he has been having left retrosternal chest pressure on and off for the past 1 week. Radiating to his back. Patient states that pain occurs with exertion and persist until he lays down and rest. Also with mild dizziness. No headache. No diaphoresis. Also states that he has similar symptoms when required stent placement. EKG showed sinus rhythm with no ST-T wave changes Chest x-ray showed no acute cardiopulmonary process. Laboratory showed WBC 7.2 hemoglobin 13.4 and platelets 274 Sodium 138 potassium 4.3 chloride 107 bicarb is 22 BUN 10 and creatinine 0.48 and blood sugar 131, calcium 8.8 magnesium 1.8 liver redness and activated troponin x 3 negative. Blood pressure 117/72 pulse 63 respiration 16 pulse ox 98% on room air. Review of Systems Constitutional: Patient denies any fever or chills . No generalized weakness or weight loss. Abdomen: Patient denied nausea vomiting and diarrhea and abdominal pain. Cardiovascular: Patient denies any chest pain or short of breath no palpitations. Respiratory: patient denied any cough is from production. No shortness of breath Neurologic: Patient denied any numbness or tingling headache. Musculoskeletal: Patient denies any complaints of joint swelling or deformity. Skin: Negative Psychiatric: Negative Endocrine: No heat or cold intolerance. No recent weight gain. Genitourinary: No dysuria or hematuria. All other 14 point ROS negative except the above Past Medical History Past Medical History: Asthma, Diabetes Mellitus, Hyperlipidemia, Hypertension, Seizure Disorder Additional Past Medical History / Comment(s): June was the latest seizure. WAS 1 YEAR AGO History of Any Multi-Drug Resistant Organisms: None Reported Past Surgical History: Heart Catheterization With Stent, Orthopedic Surgery Additional Past Surgical History / Comment(s): RIGHT WRIST SURGERY, LEFT ARM & SHOULDER PRITCHARD/SKIN GRAFTING, RT LEG PRITCHARD/SKIN GRAFT, LT KNEE SCOPE, 27 stitches in the tip of the left index finger. COLONOSCOPY/EGD Past Anesthesia/Blood Transfusion Reactions: No Reported Reaction Date of Last Stent Placement:: 05/20/22 Past Psychological History: No Psychological Hx Reported Additional Psychological History / Comment(s): Pt resides with his spouse. He is independent. Smoking Status: Former smoker Past Alcohol Use History: Rare Additional Past Alcohol Use History / Comment(s): Pt started smoking in 1985 and quit in 2008 Past Drug Use History: Marijuana Additional Drug Use History / Comment(s): WEEKLY USE, INSTRUCTED TO ABSTAIN 24 H RS PRIOR TO PROCEDURE - Past Family History Father Family Medical History: CVA/TIA, Myocardial Infarction ([place]) Additional Family Medical History / Comment(s): Father is 82 yrs old. Mother Family Medical History: No Reported History Medications and Allergies Home Medications Medication Instructions Recorded Confirmed Type Albuterol Inhaler [Ventolin Hfa 2 puff INHALATION RT-Q4H PRN 02/04/15 12/21/23 History Inhaler] Aspirin 81 mg PO HS 02/04/15 12/21/23 History Dulaglutide [Trulicity] 3 mg SQ OLIVAREZ 03/24/22 12/21/23 History Magnesium Oxide 400 mg PO HS 03/24/22 12/21/23 History Vitamin B Complex 1 cap PO HS 03/24/22 12/21/23 History levETIRAcetam 500 mg PO BID 03/24/22 12/21/23 History Metoprolol Succinate (ER) [Toprol 50 mg PO DAILY 06/29/22 12/21/23 History XL] metFORMIN HCL [Glucophage] 1,000 mg PO DAILY 01/14/23 12/21/23 History Nitroglycerin Sl Tabs [Nitrostat] 0.4 mg SUBLINGUAL Q5M PRN #30 tab 01/16/23 12/21/23 Rx Atorvastatin [Lipitor] 80 mg PO HS 12/21/23 12/21/23 History Insulin Glargine,Hum.rec.anlog 20 units SQ HS 12/21/23 12/21/23 History [Lantus Solostar Pen] Irbesartan [Avapro] 75 mg PO DAILY 12/21/23 12/21/23 History Allergies Allergy/AdvReac Type Severity Reaction Status Date / Time tree nut Allergy Anaphylaxis Verified 12/21/23 17:28 Physical Exam Vitals: Vital Signs Temp Pulse Pulse Resp BP BP Pulse Ox 12/22/23 09:12 98 12/22/23 07:00 97.7 F 66 16 127/82 98 12/22/23 02:00 97.5 F L 63 16 117/72 98 12/21/23 22:30 73 12/21/23 21:21 97.8 F 80 16 130/83 96 12/21/23 20:00 97.4 F L 73 16 145/87 98 12/21/23 17:54 70 18 120/77 12/21/23 15:24 98.3 F 75 22 141/86 98 FiO2 12/22/23 09:12 21 12/22/23 07:00 12/22/23 02:00 12/21/23 22:30 12/21/23 21:21 12/21/23 20:00 12/21/23 17:54 12/21/23 15:24 Intake and Output 12/21/23 12/22/23 12/22/23 22:59 06:59 14:59 Other: # Voids 1 Weight 146.51 kg PHYSICAL EXAMINATION: Patient is lying in the bed comfortably, no acute distress, awake alert and oriented. Morbidly obese.. HEENT: Normocephalic. Neck is supple. Pupils reactive. Nostrils clear. Oral cavity is moist. Neck reveals no JVD, carotid bruits, or thyromegaly. CHEST EXAMINATION: Trachea is central. Symmetrical expansion. Lung wilhelm clear to auscultation and percussion. CARDIAC: Normal S1, S2 with no gallops. No murmurs ABDOMEN: Soft. Bowel sounds normal. No organomegaly. No abdominal bruits. Extremities: reveal no edema. No clubbing or cyanosis Neurologically awake, alert, oriented x3 with well-coordinated movements. No focal deficits noted Skin: No rash or skin lesions. Psychiatric: Coperative. Nonsuicidal Musculoskeletal: No joint swelling or deformity. Normal range of motion. Morbidly obese. Results CBC & Chem 7: 12/21/23 15:58 12/21/23 15:58 Labs: Abnormal Lab Results - Last 24 Hours (Table) 12/21/23 12/22/23 Range/Units 15:58 10:34 Creatinine 0.48 L (0.66-1.25) mg/dL Glucose 131 H (74-99) mg/dL POC Glucose (mg/dL) 200 H (70-110) mg/dL Thrombosis Risk Factor Assmnt - DVT/VTE Prophylaxis DVT/VTE Prophylaxis: Pharmacologic Prophylaxis ordered - Choose All That Apply Any of the Below Risk Factors Present?: Yes Each Factor Represents 1 point: Age 41-60 years, Obesity (BMI >25) Other Risk Factors: No Other congenital or acquired thrombophilia - If yes, enter type in comment: No Thrombosis Risk Factor Assessment Total Risk Factor Score: 2 Thrombosis Risk Factor Assessment Level: Low Risk Assessment and Plan Assessment: Chest pain possible unstable angina Coronary artery disease with history of prior stenting to circumflex and LAD Hypertension Hyperemia Hyperlipidemia Diabetes type 2 insulin-dependent History of seizures on antiepileptic medications. Morbid obesity BMI 46.3 Prior history of smoking Marijuana use and weekly basis Plan: Patient will be continued on telemetry monitoring. Serial EKG and troponin x 3 negative. Due to exertional dyspnea and possible unstable angina cardiology is recommending cardiac cath. Continue with insulin regimen and titrate dose as needed. Continue aspirin and statins and metoprolol and losartan. Continue with antiepileptic medications. Follow-up closely. Time with Patient: Greater than 30
[2023-12-22] MEDS ORDERED: DEXTROSE 50% SYRINGE 50 ML IVP PRN ×2 (11:58)
[2023-12-22] MEDS: SODIUM CHLORIDE 0.9% 1,000 ML in EMPTY BAG 1 BAG IV SCH (12:14)
[2023-12-22] MEDS: INSULIN ASPART (NovoLOG) 100 UNIT/ML VIAL SQ SCH (13:51)
[2023-12-22] MEDS: ALBUTEROL NEBULIZED 2.5 MG/3 ML INHALATION PRN (20:32)
[2023-12-22 21:39] LABS: Glucose,Whole Blood 149 mg/dL (70-110)
[2023-12-22] MEDS: FOLIC ACID-VIT B COMPLEX-VIT C 1 CAP PO SCH (21:41)
[2023-12-22] MEDS: INSULIN DETEMIR (LEVEMIR) 100 UNIT/ML SYR SQ SCH (21:41)
[2023-12-22] MEDS: MAGNESIUM OXIDE 400 MG TAB PO SCH (21:41)
[2023-12-23] MEDS: ATORVASTATIN 80 MG TAB PO STA (01:05)
[2023-12-23] MEDS: ASPIRIN 325 MG TAB PO STA (01:05)
[2023-12-23] MEDS: SODIUM CHLORIDE 0.9% 1,000 ML in EMPTY BAG 1 BAG IV SCH (05:25)
[2023-12-23] MEDS: ATORVASTATIN 80 MG TAB PO ONE (05:25)
[2023-12-23] MEDS: ASPIRIN 325 MG TAB PO ONE (05:25)
[2023-12-23 06:09] LABS: Glucose,Whole Blood 200 mg/dL (70-110)
[2023-12-23] MEDS ORDERED: HEPARIN SODIUM,PORCINE (1 ML) 2,500 UNIT in SODIUM CHLORIDE 0.9% 250 ML IRRIGATION PRN (07:00)
[2023-12-23] MEDS ORDERED: HEPARIN SODIUM,PORCINE 10,000 UNIT in SODIUM CHLORIDE 0.9% 1,000 ML IRRIGATION PRN (07:00)
[2023-12-23] MEDS ORDERED: LIDOCAINE 1% INJ 10MG/ML (20 ML MDV) ONE ×2 (10:05→10:46)
[2023-12-23] MEDS ORDERED: VERAPAMIL 2.5 MG/ML 2 ML AMP ONE (10:05)
[2023-12-23] MEDS: IV FLUID CONTINUATION 400 ML IV ONE (10:30)
[2023-12-23] MEDS: MIDAZOLAM 2 MG/2 ML VIAL IVP ONE (10:45)
[2023-12-23] MEDS: LIDOCAINE 1% INJ 10MG/ML (20 ML MDV) SQ ONE ×2 (10:45→10:48)
[2023-12-23] MEDS ORDERED: HEPARIN SODIUM 1,000 UN/ML (10ML VL) ONE (11:01)
[2023-12-23] MEDS: HEPARIN SODIUM 1,000 UN/ML (10ML VL) IVP ONE (11:02)
[2023-12-23] MEDS: IOPAMIDOL-370 100ML BTL INJ ONE (11:09)
[2023-12-23 11:10] LABS: Blood Urea Nitrogen 10.8 mg/dL (9.0-27.0); Calcium 9.3 mg/dL (8.7-10.3); Carbon Dioxide 19.8 mmol/L (21.6-31.8); Chloride 105 mmol/L (96-109); Glucose 172 mg/dL (70-110); Potassium 4.7 mmol/L (3.5-5.5); Sodium 138 mmol/L (135-145)
[2023-12-23] MEDS ORDERED: RX INFO: IV CONTRAST WAS GIVEN 1 EACH MISC MISCELLANE PRN (11:11)
--- NOTE | 2023-12-23 11:15 | P.PCN ---
Date of Procedure: 12/23/23 Operative Findings: CARDIAC CATHETERIZATION PERFORMING PHYSICIAN: Abe Mccain MD, RPVI PROCEDURE PERFORMED: 1. Selective right and left coronary angiogram 2. Left heart catheterization 3. IFR of the LAD 4. Ultrasound-guided access of the right common femoral artery and right common femoral artery angio INDICATION: Unstable angina in this 58-year-old gentleman who is known to have CAD with prior stenting of the LCx and LAD COMPLICATION: None APPROACH: Right common femoral artery LEVEL OF SEDATION: Moderate with sedation in length of 24 minutes PROCEDURE DESCRIPTION: After obtaining an informed consent, the patient was brought to cardiac laborer pipelines. Please note that the patient does not have right radial pulse and attempting finding the right radial artery by ultrasound was not successful. For that reason we decided to go from the right common femoral artery. Local anesthesia was performed using lidocaine subcutaneously. The right common femoral artery was cannulated using Seldinger technique, the guidewire passed easily, following that we advanced a 6 Czech sheath dilator assembly, the wire and dilator were removed and sheath was flushed. Selective right and left coronary angiogram using a 6-Czech JR4 and JL catheters. Following that we did left heart catheterization using 6-Czech pigtail catheter. After that we decided to do an FFR of the LAD. After zeroing the Doppler wire and equalizing between the Doppler wire and guiding catheter which was JL 4 guiding catheter the left main was engaged and the LAD was wired. The IFR was 0.94. The procedure was completed there was no complication. SELECTIVE CORONARY ANGIOGRAM: The right coronary artery: Large-caliber vessel and dominant vessel and appears to be angiographically normal Left main: Is angiographically normal The left circumflex: Large-caliber vessel with patent stent in the mid left circumflex coronary artery The left anterior descending artery: The proximal LAD has intermediate lesion documented to be nonflow limiting by Doppler wire. The mid LAD appears to be stented and the stent is patent HEMODYNAMICS: LVEDP was 6 mmHg with no significant gradient across aortic valve CONCLUSION: 1. Patent stent in the mid LAD. Intermediate disease involving the proximal LAD documented to be nonflow limiting by Doppler wire 2. Patent stent in the left circumflex coronary artery 3. Low left-sided filling pressure POSTPROCEDURE MANAGEMENT: []
[2023-12-23] MEDS: SODIUM CHLORIDE 0.9% 1,000 ML IV SCH (11:29)
[2023-12-23 12:21] LABS: Glucose,Whole Blood 163 mg/dL (70-110)
[2023-12-23 15:09] VITALS: RESP 18; TEMP 97.4
[2023-12-23 15:51] VITALS: BP 106/70; PULSE 72
[2023-12-23 17:18] LABS: Glucose,Whole Blood 150 mg/dL (70-110)
[2023-12-25] MEDS ORDERED: NON FORMULARY DRUG (Dulaglutide [Trulicity] 3 MG/0.5 ML Each) SQ SCH (09:00)
--- NOTE | 2023-12-26 10:01 | P.DS ---
Providers Date of admission: 12/21/23 17:56 Expected date of discharge: 12/23/23 Attending physician: Bry Galeano Consults: 12/21/23 17:55 Consult Physician Routine Consulting Provider: Abe Mccain Consult Reason/Comments: CP Do you want consulting provider notified?: Yes Primary care physician: Parish Rangel Hospital Course: Final diagnosis Chest pain, likely unstable angina, cardiac catheterization was clear Coronary artery disease with history of prior stenting to circumflex and LAD Hypertension Hyperemia Hyperlipidemia Diabetes type 2 insulin-dependent History of seizures on antiepileptic medications. Morbid obesity BMI 46.3 Prior history of smoking Marijuana use and weekly basis Discharge disposition Patient is being discharged in a stable condition with guarded prognosis to home. Patient will follow-up with Dr. Rangel in the outpatient setting upon discharge. Patient is to continue with current medications and close outpatient follow-up with cardiology as scheduled. Total time taken is greater than 35 minutes. Hospital course This is a 58-year-old male who was recently admitted with chest pain and evaluated by cardiology. Patient underwent cardiac catheterization which was clear. Patient cleared by cardiology for close outpatient follow-up. Please refer to cardiology notes for further HPI. Currently no reports of chest pain, shortness of breath, or palpitations. Patient is afebrile. No reports of nausea or vomiting and patient is tolerating diet. Patient will be discharged home later today. Guarded prognosis Physical exam: Gen: This is a 58-year-old male who is awake, alert and oriented x 3, well- developed, well-nourished, morbidly obese HEENT: Head is atraumatic, normocephalic. Pupils equal, round. Sclerae is anicteric. NECK: Supple. No JVD. No lymphadenopathy. No thyromegaly. LUNGS: Diminished breath sounds bilaterally otherwise clear to auscultation. No wheezes or rhonchi. No intercostal retractions. HEART: S1, S2 are muffled ABDOMEN: Soft. Obese. Bowel sounds are present. No masses. No tenderness. EXTREMITIES: No pedal edema. No calf tenderness. NEUROLOGICAL: Patient is awake, alert and oriented x3. Cranial nerves 2 through 12 are grossly intact. Please refer to medication reconciliation sheet for a list of medications. The impression and plan of care has been dictated by Angella Long, Nurse Practitioner as directed. Dr. Jerman MD I have performed a history and examination and MDM of this patient, discussed the same with the dictator, and agree with the dictator's assessment and plan as written ,documented as a scribe. Based on total visit time, I have performed more than 50% of the visit. Patient Condition at Discharge: Stable Plan - Discharge Summary Discharge Rx Participant: No New Discharge Prescriptions: New Losartan [Cozaar] 25 mg PO DAILY #30 tab Continue Aspirin 81 mg PO HS Albuterol Inhaler [Ventolin Hfa Inhaler] 2 puff INHALATION RT-Q4H PRN PRN Reason: Shortness Of Breath Nitroglycerin Sl Tabs [Nitrostat] 0.4 mg SUBLINGUAL Q5M PRN #30 tab PRN Reason: Chest Pain Insulin Glargine,Hum.rec.anlog [Lantus Solostar Pen] 20 units SQ HS Dulaglutide [Trulicity] 3 mg SQ OLIVAREZ Magnesium Oxide 400 mg PO HS levETIRAcetam 500 mg PO BID Vitamin B Complex 1 cap PO HS Metoprolol Succinate (ER) [Toprol XL] 50 mg PO DAILY metFORMIN HCL [Glucophage] 1,000 mg PO DAILY Atorvastatin [Lipitor] 80 mg PO HS Discontinued Irbesartan [Avapro] 75 mg PO DAILY Discharge Medication List Albuterol Inhaler [Ventolin Hfa Inhaler] 2 puff INHALATION RT-Q4H PRN 02/04/15 [History] Aspirin 81 mg PO HS 02/04/15 [History] Dulaglutide [Trulicity] 3 mg SQ OLIVAREZ 03/24/22 [History] Magnesium Oxide 400 mg PO HS 03/24/22 [History] Vitamin B Complex 1 cap PO HS 03/24/22 [History] levETIRAcetam 500 mg PO BID 03/24/22 [History] Metoprolol Succinate (ER) [Toprol XL] 50 mg PO DAILY 06/29/22 [History] metFORMIN HCL [Glucophage] 1,000 mg PO DAILY 01/14/23 [History] Nitroglycerin Sl Tabs [Nitrostat] 0.4 mg SUBLINGUAL Q5M PRN #30 tab 01/16/23 [Rx] Atorvastatin [Lipitor] 80 mg PO HS 12/21/23 [History] Insulin Glargine,Hum.rec.anlog [Lantus Solostar Pen] 20 units SQ HS 12/21/23 [ History] Losartan [Cozaar] 25 mg PO DAILY #30 tab 12/23/23 [Rx] Follow up Appointment(s)/Referral(s): Parish Rangel MD [Primary Care Provider] - 1-2 days Abe Mccain MD [STAFF PHYSICIAN] - 12/30/23 9:15 am Patient Instructions/Handouts: *Surgery [facility] - After Heart Catheterization - Communication Assistant Instructions Activity/Diet/Wound Care/Special Instructions: No heavy lifting or repeatedly bending at the hips, weightlifting, running, jogging, etc. You may go up and down stairs slowly. NO soaking in tubs, pools, spas You may shower with gentle cleansing and pat site dry Go to the nearest ER if you notice any bleeding or swelling from the puncture site Follow up in the office for a Site Check with Dr. Mccain Discharge Disposition: HOME SELF-CARE
== END 2023-12-23 18:27 | disposition home or self-care (01) ==
LOC: EC 15:23 → 6NMEDSUR 17:56 → INTOOBSV 12-23 10:12 → OBSVTOIN 12-23 10:12 → UNDODISIN 12-23 18:27
PROVIDERS: ADMIT Internal Medicine; ATTEND Internal Medicine
DX: R10.9 Unspecified abdominal pain (principal); Z68.42 Body mass index [BMI] 45.0-49.9, adult; R07.9 Chest pain, unspecified; R68.89 Other general symptoms and signs; E11.9 Type 2 diabetes mellitus without complications; I25.10 Atherosclerotic heart disease of native coronary artery without angina pectoris; E78.5 Hyperlipidemia, unspecified; I10 Essential (primary) hypertension; F12.90 Cannabis use, unspecified, uncomplicated; G40.909 Epilepsy, unspecified, not intractable, without status epilepticus; E66.01 Morbid (severe) obesity due to excess calories; Z87.891 Personal history of nicotine dependence; Z95.5 Presence of coronary angioplasty implant and graft; Z79.82 Long term (current) use of aspirin; Z79.85 Long-term (current) use of injectable non-insulin antidiabetic drugs; Z79.84 Long term (current) use of oral hypoglycemic drugs; Z79.4 Long term (current) use of insulin; Z79.899 Other long term (current) drug therapy
CPT/HCPCS: 36415; 71046; 80048; 80053; 83036; 83735; 84443; 84484; 85025; 85610; 85730; 93005; 93306; 93458; 93799; 94640; 94760; 96360; 96361; 99285

== ENCOUNTER → 2024-07-18 | Outpatient (CLI) | payer BC ==
--- NOTE | 2024-07-18 10:29 | US ---
EXAMINATION TYPE: US abdomen limited DATE OF EXAM: 07/18/2024 COMPARISON: NONE CLINICAL INDICATION: Male, 59 years old with history of R10.11 right upper quadrant pain; RUQ pain x a month TECHNIQUE: Grayscale and color Doppler imaging of the right upper quadrant was performed. FINDINGS: EXAM MEASUREMENTS: Liver Length: 15.6 cm Gallbladder Wall: 0.2 cm CBD: 0.3 cm Right Kidney: 11.5 x 6.0 x 6.6 cm AIR BRUSH ARTIST NOTES: Pancreas: tail obscured by bowel gas, parts seen appear wnl Liver: heterogeneous and difficult to penetrate, slightly enlarged Gallbladder: fold in the body, appears wnl Evidence for sonographic Multani's sign: No CBD: wnl Right Kidney: wnl IMPRESSION: 1. Hepatocellular disease commonly relating to hepatic steatosis., No masses visualized. 2. No acute process. [facility], , 07/18/2024 10:27 AM
== END | disposition home or self-care (01) ==
LOC: RADUSWWP 08:47
PROVIDERS: ATTEND Family Medicine
DX: K76.0 Fatty (change of) liver, not elsewhere classified (principal); R10.11 Right upper quadrant pain
CPT/HCPCS: 76705